=== PATIENT | female | born 1950 | race Caucasian/White ===

== ENCOUNTER 2021-01-18 19:16 | Emergency (ER) | payer MEDICARE, OTHER, SELFPAY ==
--- NOTE | 2021-01-18 19:17 | ED.FEMALEGU ---
HPI - Female Genitourinary General Chief complaint: Urogenital-Female Stated complaint: uti symptoms Time Seen by Provider: 01/18/21 19:38 Source: patient and RN notes reviewed Mode of arrival: ambulatory Limitations: no limitations History of Present Illness HPI Narrative: 70-year-old female presents concern for 2-week history of dysuria frequency, urgency, pressure when urinating. She reports she made an appointment with her doctor's office a week and a symptoms, however was unable to be seen because she had upper respiratory symptoms and they would not see her without being tested for Covid. Reports she tested negative for Covid. She reports symptoms are worsening, today she had nausea and vomiting, body aches and chills. MD elicited complaint: UTI Related Data Home Medications Medication Instructions Recorded Confirmed amlodipine 01/18/21 glimepiride mg 01/18/21 levothyroxine 01/18/21 lorazepam 01/18/21 metoprolol succinate PO 01/18/21 sitagliptin [Januvia] mg 01/18/21 Allergies Allergy/AdvReac Type Severity Reaction Status Date / Time ciprofloxacin Allergy Unknown Unknown Verified 01/18/21 19:26 codeine Allergy Unknown Unknown Verified 01/18/21 19:26 heparin Allergy Unknown Rash Verified 04/02/18 12:32 lansoprazole Allergy Unknown Unknown Verified 01/18/21 19:26 metformin Allergy Unknown Unknown Verified 01/18/21 19:26 neomycin Allergy Unknown Unknown Verified 01/18/21 19:26 Penicillins Allergy Unknown rash Verified 11/09/15 08:17 Sulfa (Sulfonamide Allergy Unknown Unknown Verified 01/18/21 19:26 Antibiotics) enoxaparin Allergy Flushing Verified 01/18/21 19:26 metronidazole Allergy Unknown Verified 01/18/21 19:26 shellfish derived Allergy Unknown Verified 01/18/21 19:26 ANTIDEPRESSANTS Allergy Unknown Unknown Uncoded 01/18/21 19:26 Contrast Media Allergy Unknown Unknown Uncoded 01/18/21 19:26 ESOMEPRAZOLE MAG Allergy Unknown Unknown Uncoded 01/18/21 19:26 Review of Systems Review of Systems: CONSTITUTIONAL: Reports malaise, chills. Denies sweats, or fever. CARDIOVASCULAR: Denies chest pain, palpitations, or edema. RESPIRATORY: Denies cough or dyspnea. GASTROINTESTINAL: Denies abdominal pain,diarrhea, bloody, or mucous stools. Reports nausea, vomiting, GENITOURINARY: Reports dysuria, frequency, urgency, bladder pressure. Denies abnormal vaginal discharge or bleeding, hematuria. SKIN: Denies rash or itching. MUSCULOSKELETAL: Denies new back pain. Reports myalgia. All systems reviewed & are unremarkable except as noted in HPI and below PMFSH Family History Family History (Updated 11/09/15 @ 08:24 by DOCTOR UNKNOWN) Other Diabetes mellitus Family history of cardiovascular disease Social History Social History Smoking status: Former smoker Smoking end date: 05/05/14 Alcohol intake: never Comments At time of signature, agree with nursing past medical, surgical, social and family history. There is no relevant family history pertinent to the presenting complaint Exam Narrative: GENERAL: Well-appearing, well-nourished, and in no acute distress. HEAD: Normocephalic. EYES: PERRLA, conjunctivae clear. NECK: Supple. No lymphadenopathy CHEST: Clear to auscultation. No respiratory distress. HEART: Regular rate and rhythm. ABDOMEN: Soft, nontender upon palpation, nondistended, normal active bowel sounds, no palpable or pulsatile masses, no guarding. No CVA tenderness SKIN: Warm, dry, no rash. NEURO: Alert and oriented x3. PSYCH: Normal mood and affect Course Course Emergency Course: Antibiotic options are limited due to patient's allergies. Patient reports having taken Macrobid several times in the past without any interaction or allergic reaction. Macrobid at this time is the best choice weighing benefits against risks. Patient is aware of diagnosis, understands and agrees to treatment plan. Anticipatory guidance given. Patient agrees to follow-up as directed and is aware
[2021-01-18 19:22] VITALS: BP 136/67; PULSE 80; RESP 20; TEMP 37.4; O2SAT 98
== END 2021-01-18 19:55 | disposition home or self-care (01) ==
PROVIDERS: Emergency Provider Nurse Practitioner; PCP Internal Medicine
DX: N39.0 Urinary tract infection, site not specified (principal); Z87.891 Personal history of nicotine dependence
CPT/HCPCS: 81003; 87077; 87086; 87186; 99213; G0463

== ENCOUNTER 2021-01-19 09:21 | Emergency (ER) | payer MEDICARE, OTHER, SELFPAY ==
[2021-01-19 09:27] VITALS: BP 154/61; PULSE 93; RESP 18; TEMP 37.4; O2SAT 98
[2021-01-19 10:11] LABS: Basophils Absolute Auto 0.1 K/mm3 (0.0-0.1); Basophils Percent Auto 0.4 % (0.2-1.2); Hematocrit 40.2 % (37.0-47.0); Immature Granulocyte Absolute 0.06 K/mm3 (0.00-0.031); Immature Granulocyte Percent A 0.5 % (0-0.5); Lymphocytes Absolute Auto 0.92 K/mm3 (0.9-3.2); Mean Corpuscular HGB Conc 32.3 g/dl (32-36); Mean Corpuscular Hemoglobin 26.7 pg (26-34); Mean Corpuscular Volume 82.5 fl (80-100); Mean Platelet Volume 9.9 fl (7.4-10.4); Monocytes Absolute Auto 0.6 K/mm3 (0.1-0.6); Monocytes Percent Auto 4.7 % (2.6-8.5); Neutrophils Absolute Auto 11.5 K/mm3 (1.3-6.7); Neutrophils Percent Auto 87.4 % (45.5-73.1); Platelet Count Result 235 k/mm3 (150-375); Red Blood Count 4.87 M/mm3 (4.2-5.4); Red Cell Distribution Width 14.6 % (11.5-14.5); White Blood Count 13.1 K/mm3 (4.5-10.0)
[2021-01-19 10:15] LABS: Anion Gap 9 mmol/L (8-16); Blood Urea Nitrogen 14 mg/dL (7-17); Calcium 9.2 mg/dL (8.4-10.2); Carbon Dioxide 27 mmol/L (22-30); Chloride 97 mmol/L (98-107); Estimated CRCL calculation 84 ml/min; Estimated Glomerular Filt Rate > 60; Glucose 199 mg/dL (65-110); Potassium 4.1 mmol/L (3.4-5.0); Sodium 133 mmol/L (137-145)
--- NOTE | 2021-01-19 10:40 | ED.FEMALEGU ---
HPI - Female Genitourinary General Chief complaint: Urogenital-Female Stated complaint: fever Time Seen by Provider: 01/19/21 10:16 Source: patient Mode of arrival: ambulatory Limitations: no limitations History of Present Illness HPI Narrative: This is a 70 year old female that presents to the ER for urinary symptoms ongoing over the last couple of weeks. Reports frequency, dysuria and foul smelling urine. Reports she was seen at the urgent care for this yesterday and started on Macrobid. She took two doses of this. Had a fever and continues to feel unwell which prompted her to be seen. Denies flank pain or hematuria. Related Data Home Medications Medication Instructions Recorded Confirmed amlodipine 5 mg PO DAILY 01/18/21 01/18/21 glimepiride 2 mg PO DAILY 01/18/21 01/18/21 levothyroxine 175 mcg PO DAILY 01/18/21 01/18/21 lorazepam 1 mg PO QID 01/18/21 01/18/21 metoprolol succinate 25 mg PO DAILY 01/18/21 01/18/21 sitagliptin [Januvia] 100 mg PO DAILY 01/18/21 01/18/21 Allergies Allergy/AdvReac Type Severity Reaction Status Date / Time ciprofloxacin Allergy Unknown Unknown Verified 01/18/21 19:26 codeine Allergy Unknown Unknown Verified 01/18/21 19:26 heparin Allergy Unknown Rash Verified 04/02/18 12:32 lansoprazole Allergy Unknown Unknown Verified 01/18/21 19:26 metformin Allergy Unknown Unknown Verified 01/18/21 19:26 neomycin Allergy Unknown Unknown Verified 01/18/21 19:26 Penicillins Allergy Unknown rash Verified 11/09/15 08:17 Sulfa (Sulfonamide Allergy Unknown Unknown Verified 01/18/21 19:26 Antibiotics) enoxaparin Allergy Flushing Verified 01/18/21 19:26 metronidazole Allergy Unknown Verified 01/18/21 19:26 shellfish derived Allergy Unknown Verified 01/18/21 19:26 ANTIDEPRESSANTS Allergy Unknown Unknown Uncoded 01/18/21 19:26 Contrast Media Allergy Unknown Unknown Uncoded 01/18/21 19:26 ESOMEPRAZOLE MAG Allergy Unknown Unknown Uncoded 01/18/21 19:26 Review of Systems Review of Systems: CONSTITUTIONAL: Reports fever GASTROINTESTINAL: Denies abdominal pain, nausea, vomiting GENITOURINARY: Reports dysuria. Denies hematuria. All systems reviewed & are unremarkable except as noted in HPI and below PMFSH Past Medical History Medical History (Updated 01/19/21 @ 12:06 by Eulalia Major PA-C) History of diabetes mellitus History of hypertension History of hypothyroidism Family History Family History (Updated 11/09/15 @ 08:24 by DOCTOR UNKNOWN) Other Diabetes mellitus Family history of cardiovascular disease Social History Social History (Updated 01/19/21 @ 10:44 by Eulalia Major PA-C) Smoking status: Current every day smoker Alcohol intake: never Exam Narrative: GENERAL: Well-appearing, well-nourished, and in no acute distress. HEAD: Normocephalic, atraumatic. EYES: EOMI. CHEST: Clear to auscultation. No respiratory distress. No wheezes rales or rhonchi HEART: Regular rate and rhythm. No murmur heard. Normal peripheral pulses. ABDOMEN: Soft, nontender, nondistended, normal active bowel sounds. No CVA tenderness EXTREMITIES: Normal range of motion. No edema. SKIN: Warm, dry, no rash. NEURO: No focal deficits. Alert and oriented x3. PSYCH: Normal mood and affect Course Consultations Consultation #1: I spoke with her primary, Dr. Cleaning, about work-up who agrees with plan and will follow up in clinic. Date: 01/19/21 Time: 12:00 Vital Signs Vital signs: Vital Signs Temperature 99.4 F 01/19/21 09:27 Pulse Rate 93 01/19/21 09:27 Respiratory Rate 18 01/19/21 09:27 Blood Pressure 154/61 H 01/19/21 09:27 Pulse Oximetry 98 01/19/21 09:27 Temperature 99.4 F 01/19/21 09:27 Pulse Rate 93 01/19/21 09:27 Respiratory Rate 18 01/19/21 09:27 Blood Pressure 154/61 H 01/19/21 09:27 Pulse Oximetry 98 01/19/21 09:27 MDM - Female Genitourinary MDM Narrative Medical decision making narrative: Patient presents the emergency department for dysuria
[2021-01-19 10:47] LABS: Add Urine Microscopic? YES; Appearance Urine Cloudy (Clear); Bacteria Urine Trace /hpf; Bilirubin Urine Negative (Negative); Blood Urine Negative (Negative); Color Urine Amber (Yellow); Glucose Urine UA Negative (Negative); Ketones Urine Negative (Negative); Leukocyte Esterase Ur 1+ LEU/UL (Negative); Mucus Urine Rare /lpf; Nitrate Urine Negative (Negative); Protein Urine 1+ mg/dL (Negative); Specific Grav Ur 1.025 (1.001-1.035); Squamous Epithelial Cell Urine Moderate /hpf (Few); Urobilinogen Urine Negative mg/dL (<2.0); WBC Urine 31-50 /hpf
== END 2021-01-19 12:26 | disposition home or self-care (01) ==
PROVIDERS: Emergency Provider Emergency Medicine; PCP Internal Medicine
DX: N39.0 Urinary tract infection, site not specified (principal); E11.9 Type 2 diabetes mellitus without complications; I10 Essential (primary) hypertension; E03.9 Hypothyroidism, unspecified; F17.210 Nicotine dependence, cigarettes, uncomplicated
CPT/HCPCS: 36415; 80048; 81001; 85025; 99283

== ENCOUNTER 2023-07-07 09:19 | Emergency (ER) | payer MEDICARE, OTHER, SELFPAY ==
[2023-07-07 09:39] VITALS: BP 126/73; PULSE 65; RESP 20; TEMP 36.6; O2SAT 97
--- NOTE | 2023-07-07 10:20 | ED.GENADULT ---
HPI - General Adult General Chief complaint: Extremity Problem,Nontraumatic Stated complaint: rash Time Seen by Provider: 07/07/23 10:00 History of Present Illness HPI narrative: Beatriz Sim is a 72 y/o who presents with reports of noticing a red rash to her bilateral lower extremities / ankles today. She states that she started having her dog sleep at her feet and not sure if she is having an allergic reaction to her dog since he started a new medication that was put in his ears. She denies any pain/ itching to rash but states she does have neuropathy. She denies noticing the rash yesterday. Related Data Home Medications Medication Instructions Recorded Confirmed amlodipine 5 mg tablet 5 mg PO DAILY 01/18/21 01/18/21 glimepiride 2 mg tablet 2 mg PO DAILY 01/18/21 01/18/21 levothyroxine 150 mcg tablet 175 mcg PO DAILY 01/18/21 01/18/21 lorazepam 1 mg tablet 1 mg PO QID 01/18/21 01/18/21 metoprolol succinate 25 mg 25 mg PO DAILY 01/18/21 01/18/21 tablet,extended release 24 hr sitagliptin phosphate 100 mg 100 mg PO DAILY 01/18/21 01/18/21 tablet (Januvia) Allergies Allergy/AdvReac Type Severity Reaction Status Date / Time ciprofloxacin Allergy Unknown Unknown Verified 07/07/23 09:45 codeine Allergy Unknown Unknown Verified 07/07/23 09:45 heparin Allergy Unknown Rash Verified 07/07/23 09:45 lansoprazole Allergy Unknown Unknown Verified 07/07/23 09:45 metformin Allergy Unknown Unknown Verified 07/07/23 09:45 neomycin Allergy Unknown Unknown Verified 07/07/23 09:45 Penicillins Allergy Unknown rash Verified 07/07/23 09:45 Sulfa (Sulfonamide Allergy Unknown Unknown Verified 07/07/23 09:45 Antibiotics) enoxaparin Allergy Flushing Verified 07/07/23 09:45 metronidazole Allergy Unknown Verified 07/07/23 09:45 shellfish derived Allergy Unknown Verified 07/07/23 09:45 ANTIDEPRESSANTS Allergy Unknown Unknown Uncoded 07/07/23 09:45 Contrast Media Allergy Unknown Unknown Uncoded 07/07/23 09:45 ESOMEPRAZOLE MAG Allergy Unknown Unknown Uncoded 07/07/23 09:45 Review of Systems Review of Systems: CONSTITUTIONAL: Denies fever, chills, or sweats. EYES: Denies visual changes, redness, or discharge. ENT: Denies rhinorrhea, congestion, sore throat, or otalgia. CARDIOVASCULAR: Denies chest pain, palpitations, or edema. RESPIRATORY: Denies cough or dyspnea. GASTROINTESTINAL: Denies abdominal pain, nausea, vomiting, or diarrhea. GENITOURINARY: Denies dysuria or hematuria. SKIN: Reports rash to bilateral ankles where her dog was resting last night at her feet MUSCULOSKELETAL: Denies back pain, joint pain, or myalgia. NEUROLOGIC: Denies headache, numbness, dizziness, or weakness. PSYCHIATRIC: Denies anxiety or depression. [facility] Past Medical History Medical History History of diabetes mellitus History of hypertension History of hypothyroidism Family History Family History Other Diabetes mellitus Family history of cardiovascular disease Social History Social History Smoking status: Current every day smoker Alcohol intake: never Exam Narrative: GENERAL: Well-appearing, well-nourished, and in no acute distress. HEAD: Normocephalic, atraumatic. EYES: PERRLA and EOMI. ENT: Nares clear, no rhinorrhea or epistaxis. Mucous membranes moist. Oropharynx without tonsillar hypertrophy exudate or other lesions. NECK: Supple. No adenopathy or masses. No carotid bruits or JVD CHEST: Clear to auscultation. No respiratory distress. No wheezes rales or rhonchi HEART: Regular rate and rhythm. No murmur heard. Normal peripheral pulses. ABDOMEN: Soft, nontender, nondistended, normal active bowel sounds. EXTREMITIES: Normal range of motion. No edema. SKIN: Warm, dry, multiple raised/ blanchable / papules to the bilateral lower ankles NEURO: No focal deficits. Alert and khang
[2023-07-07] MEDS: AZITHROMYCIN 250 MG TABLET 500 MG PO (10:24)
[2023-07-07] MEDS: LORATADINE 10 MG TABLET PO (10:24)
[2023-07-07 10:25] VITALS: BP 150/73; PULSE 76; RESP 20; O2SAT 97
[2023-07-07 10:53] VITALS: BP 153/90; PULSE 66; RESP 18; TEMP 36.7; O2SAT 96
== END 2023-07-07 10:55 | disposition home or self-care (01) ==
LOC: ANHED 10:41
PROVIDERS: Emergency Provider Nurse Practitioner Family; PCP Internal Medicine
DX: L24.9 Irritant contact dermatitis, unspecified cause (principal); E11.9 Type 2 diabetes mellitus without complications; I10 Essential (primary) hypertension; E03.9 Hypothyroidism, unspecified; Z79.84 Long term (current) use of oral hypoglycemic drugs; F17.200 Nicotine dependence, unspecified, uncomplicated
CPT/HCPCS: 99283; A9270

== ENCOUNTER 2024-06-21 10:47 | Emergency (ER) | payer MEDICARE, OTHER, SELFPAY ==
--- NOTE | ~2024-06-21 | XR_ITS ---
EXAMINATION: XR chest 2V DATE: 06/21/2024 11:41 INDICATION: Cough. Upper respiratory infection. TECHNIQUE: Frontal and lateral views of the chest were obtained. COMPARISON: Chest 2 views 12/31/2016, CT abdomen and pelvis 09/12/2016 FINDINGS: Calcified left lung nodules are consistent with old granulomatous disease. No pleural effus ion or pneumothorax. The heart size is normal. There are surgical clips in the right abdomen. IMPRESSION: 1. No acute cardiopulmonary disease. Reviewed, dictated and finalized at location A. RING HOUSE CLERK
[2024-06-21 10:49] VITALS: BP 173/68; PULSE 80; RESP 15; TEMP 36.6; O2SAT 100
--- NOTE | 2024-06-21 11:36 | ECG_ITS ---
Test Date: 2024-06-21 12:20:30 Measurements Intervals [place] Rate: 72 P: 23 [place]: 157 QRS: -7 QRSD: 110 T: -6 QT: 413 QTc: 454 Interpretive Statements SINUS RHYTHM WITH OCCASIONAL WITH OCCASIONAL ATRIAL AND VENTRICULAR PREMATURE COMPLEXES CANNOT R/O SEPTAL INFARCT, AGE INDETERMINATE BORDERLINE T WAVE ABNORMALITY- INF/HIGH LAT LEADS ABNORMAL ECG No previous ECG available for comparison Electronically Signed On 06-21-2024 12:43:10 HIGH RE[employer] OPERATOR by Darian Jones D.O.
[2024-06-21 11:45] VITALS: O2SAT 98
[2024-06-21 12:07] LABS: Influenza A QL RT-PCR Positive (Negative); Influenza B QL RT-PCR Negative (Negative); RSV RNA, RT-PCR Negative (Negative); SARS-CoV-2 RNA PCR Negative (Negative)
--- NOTE | 2024-06-21 12:26 | ED.GENADULT ---
HPI - General Adult General Chief complaint: Upper Respiratory Infection Stated complaint: cough Time Seen by Provider: 06/21/24 11:23 History of Present Illness HPI narrative: Patient is a 73-year-old female who presents ER with a cough. Associated with runny nose and sore throat. Ongoing for 7 days. No alleviating factors. Cough is productive. No chest pain. Related Data Home Medications ?Medication ?Instructions ?Recorded ?Confirmed ?Last Taken ?Type amlodipine 5 mg tablet 5 mg PO DAILY 01/18/21 01/18/21 Unknown History glimepiride 2 mg tablet 2 mg PO DAILY 01/18/21 01/18/21 Unknown History levothyroxine 150 mcg tablet 175 mcg PO DAILY 01/18/21 01/18/21 Unknown History lorazepam 1 mg tablet 1 mg PO QID 01/18/21 01/18/21 Unknown History metoprolol succinate 25 mg 25 mg PO DAILY 01/18/21 01/18/21 Unknown History tablet,extended release 24 hr sitagliptin phosphate 100 mg 100 mg PO DAILY 01/18/21 01/18/21 Unknown History tablet (Januvia) Allergies Allergy/AdvReac Type Severity Reaction Status Date / Time ciprofloxacin Allergy Unknown Unknown Verified 07/07/23 09:45 codeine Allergy Unknown Unknown Verified 07/07/23 09:45 heparin Allergy Unknown Rash Verified 07/07/23 09:45 lansoprazole Allergy Unknown Unknown Verified 07/07/23 09:45 metformin Allergy Unknown Unknown Verified 07/07/23 09:45 neomycin Allergy Unknown Unknown Verified 07/07/23 09:45 Penicillins Allergy Unknown rash Verified 07/07/23 09:45 Sulfa (Sulfonamide Allergy Unknown Unknown Verified 07/07/23 09:45 Antibiotics) enoxaparin Allergy Flushing Verified 07/07/23 09:45 metronidazole Allergy Unknown Verified 07/07/23 09:45 shellfish derived Allergy Unknown Verified 07/07/23 09:45 ANTIDEPRESSANTS Allergy Unknown Unknown Uncoded 07/07/23 09:45 Contrast Media Allergy Unknown Unknown Uncoded 07/07/23 09:45 ESOMEPRAZOLE MAG Allergy Unknown Unknown Uncoded 07/07/23 09:45 Review of Systems Review of Systems: All systems reviewed & are unremarkable except as noted in HPI and below Constitutional: Constitutional: Reports no additional constitutional complaints Cardiovascular: Cardiovascular: Reports no additional cardiovascular complaints Respiratory: Respiratory: Reports no additional respiratory complaints Musculoskeletal: Musculoskeletal: Reports no additional musculoskeletal complaints PMFSH Past Medical History Medical History History of diabetes mellitus History of hypertension History of hypothyroidism Family History Family History Other Diabetes mellitus Family history of cardiovascular disease Social History Social History Smoking status: Current every day smoker Alcohol intake: never Exam Narrative: GENERAL: Well-appearing, well-nourished, and in no acute distress. HEAD: Normocephalic, atraumatic. ENT: Mucous membranes moist. CHEST: Clear to auscultation. No respiratory distress. HEART: Regular rate and rhythm. Normal peripheral pulses. EXTREMITIES: Normal range of motion. No edema. SKIN: Warm, dry, no rash. NEURO: Alert and oriented x3. PSYCH: Normal mood and affect. Course Vital Signs Vital signs: Vital Signs Temperature 97.8 F 06/21/24 10:49 Pulse Rate 80 06/21/24 10:49 Respiratory Rate 06/21/24 10:49 Blood Pressure 173/68 H 06/21/24 10:49 Pulse Oximetry 100 06/21/24 10:49 Oxygen Delivery Room Air 06/21/24 10:49 Temperature 97.8 F 06/21/24 10:49 Pulse Rate 80 06/21/24 10:49 Respiratory Rate 15 06/21/24 10:49 Blood Pressure 173/68 H 06/21/24 10:49 Pulse Oximetry 100 06/21/24 10:49 Oxygen Delivery Room Air 06/21/24 10:49 Medical Decision Making Vital Signs Vital Signs: Vital Signs Temperature 97.8 F 06/21/24 10:49 Pulse Rate 80 06/21/24 10:49 Respiratory Rate 15 06/21/24 10:49 Blood Pressure 173/68 H 06/21/24 10:49 Pulse Oximetry 100 06/21/24 10:49 Oxygen Delivery Room Air 06/21/24 10:49 Temperature 97.8 F 06/21/24 10:49 Pulse Rate 80 06/21/24 10:49 Respiratory Rate 15 06/21/24 10:49 Blood Pressure 173/68 H 06/21/24 10:49 Pulse Oximetry 100 06/21/24 10:49 Oxygen Delivery Room Air 06/21/24 10:49 Lab Data Labs: Lab Results 06/21/24 Range/Units 11:23 Influenza A (RT-PCR) Positive A (Negative) Influenza B (RT-PCR) Negative (Negative) RSV (RT-PCR) Negative (Negative) SARS-CoV-2 RNA (RT-PCR) Negative (Negative) Imaging Data Radiologist's impression: ITS Impressions Chest X-Ray 06/21/24 11:42 IMPRESSION: 1. No acute cardiopulmonary disease. Discharge Plan Discharge Clinical Impression: Influenza A Patient Disposition: Home, Self-Care Condition: Stable Instructions: Influenza (ED) Additional Instructions: You have the flu, take Tylenol and ibuprofen as needed for body aches and fever. Return ER if you cannot breathe, have chest pain, have additional concerns. Patient Language: Swedish Prescriptions: No Action amlodipine 5 mg tablet 5 mg PO DAILY glimepiride 2 mg tablet 2 mg PO DAILY levothyroxine 150 mcg tablet 175 mcg PO DAILY metoprolol succinate 25 mg tablet extended release 24 hr 25 mg PO DAILY lorazepam 1 mg tablet 1 mg PO QID Januvia 100 mg tablet 100 mg PO DAILY phenazopyridine [Pyridium] 200 mg tablet 200 mg PO TID PRN (Reason: pain) Qty: 6 0RF nitrofurantoin monohyd/m-cryst [Macrobid] 100 mg capsule 100 mg PO Q12H 5 Days Qty: 10 0RF Rx Instructions: must administer with a meal/food cetirizine [Zyrtec] 10 mg tablet 10 mg PO DAILY Qty: 30 0RF azithromycin 250 mg tablet 250 mg PO DAILY 4 Days Qty: 4 0RF Rx Instructions: start on day 2 of therapy triamcinolone acetonide 0.1 % ointment 1 applic topical BID Qty: 30 0RF Follow-up/Referrals: Hermila,Lobito Banegas MD [Primary Care Provider] - 1 Week
[2024-06-21 12:37] VITALS: BP 126/65; PULSE 85; RESP 20; TEMP 36.5; O2SAT 99
[2024-06-21 12:42] VITALS: BP 126/65; PULSE 85; RESP 20; TEMP 36.5; O2SAT 99
--- OUTSIDE RECORDS SUMMARY | 2024-06-21 13:51 | XMS_ITS | Clinical Summary ---
Author Organization [facility] Address [address] [place] [id number] Care Team Providers Care [employer] Weapons Officer Name Role Phone Unavailable Primary Care Provider Unavailabl e Social History Tobacco Use Types Packs/Day Years Used Date Smoking Tobacco: Never Assessed Comments Unknown Sex and Gender Information Value Date Recorded Sex Assigned at Not on file Legal Sex Female 4:40 PM CDT Gender Identity Not on file Sexual Orientation Not on file Plan of Treatment Health Maintenance Due Date Last Done Comments Colorectal Cancer Screening Colonoscopy (10 Years) 1950 Hepatitis C 1968 DTaP, Tdap and Td Vaccines ( 1 - Tdap) 1969 Mammogram Screening 1990 Zoster Vaccines (1 of 2) 2000 Dexa Scan (General) 08/15/2015 Pneumococcal Vaccine: 65+ Ye ars (1 of 1 - PCV) 08/15/2015 COVID-19 Vaccine (2023-2 5 season) 2024 Influenza Adult (#1) 2024 RSV Immunization or 60+ Years (1 - 1-dose 75+ series) 2025 Meningococcal B Vaccine Aged Out No l onger eligible based on patient's age to complete this topic Meningococcal Vaccine Aged Out No kaylee iman eligible based on patient's age to complete this topic RSV Immunizations Under 20 Months Aged Out No longer eligible based on patient's age to complete this topic
--- OUTSIDE RECORDS SUMMARY | 2024-06-21 13:51 | XMS_ITS | Referral Summary ---
Author Organization [facility] Address [address] [place] [address] Care Team Providers Care Hat Measurer Name Role Phone Lobito Cleaning MD Primary Care Provider [phone] Encounters Date Type Department Care Team Description 06/21/2024 Telephone [facility] [address] [facility] [address] [place] [phone] Lobito Cleaning MD Medication Request 05/21/2024 10:00 AM DIETICIAN Office Visit [facility] [address] [facility] [address] [place] [phone] Lobito Cleaning MD Primary hypertension (Primary Dx); Hypothyroidism, unspecified type; Hyperlipidemia associated with type 2 diabetes mellitus (HCC); Palpitations from Last 3 Months Allergies Active Allergy Reactions Criticality Noted Date Comments Ciprofloxacin Codeine Other (See comments),Unknown Medium 09/04/2023 Reaction: Unknown, , Reaction: PALPIT, RAPID HRTRT, , per pt [id number] Enoxaparin Other (See comments) Medium Reaction: FLUSHING, Esomeprazole Unknown 09/04/2023 Iodinated Contrast Media Rash Medium Iodine Unknown 09/04/2023 Neomycin Blisters High 03/06/2018 Oyster Extract Flatulence Low Penicillins Other (See comments),Unknown 02/06/2005 Reaction: Unknown, , , RASH Poison Vanessa Extract Swelling,Rash Medium 07/15/2017 Shellfish Derived Unknown 09/04/2023 Sulfa (Sulfonamide Antibiotics) Unknown 02/06/2005 NOT SURE Sulfanilamide Other (See comments) Reaction: Unknown, Sulfite Hives Medium Tetracyclic Antidepressants Mental status changes Medium Reaction: CONFUSION, Medications rosuvastatin (CRESTOR) 10 mg tablet Take 1 tablet (10 mg total) by mouth daily 30 tablet 3 Active Additional Information Patient not taking.Reported on 09/04/2023 albuterol HFA (PROVENTIL HFA,VENTOLIN HFA,PROAIR HFA) 90 mcg/actuation inhaler Inhale 2 puffs every 4 (four) hours as needed for wheezing 1 each 3 Active alcohol swabs (Alcohol Pads) pads, medicatedIndica tions:Diabetes mellitus due to underlying condition with hyperglycemia, without long-term current use of insulin ([facility]) 100 each by other route once a week Use for Trulicity injection weekly. 100 each 4 Active blood-glucose meter kitIndications: Diabetes mellitus due to underlying condition with hyperglycemia, without long-term current use of insulin ([facility]) Use daily or as directed for monitoring of diabetes 1 kit 4 Active blood glucose diagnostic stripIndication s:Diabetes mellitus due to underlying condition with hyperglycemia, without long-term current use of insulin ([facility]) 1 each by other route 2 (two) times a day before lunch and dinner 180 each 4 09/05/19 25 Active lancets 31 gauge miscIndications :Diabetes mellitus due to underlying condition with hyperglycemia, without long-term current use of insulin ([facility]) 1 strip 2 (two) times a day before lunch and dinner 100 each 4 09/05/19 25 Active levothyroxine (SYNTHROID) 175 mcg tablet Take 1 tablet (175 mcg total) by mouth daily 90 tablet 4 Active metoprolol XL (TOPROL-XL) 25 mg extended release tablet Take 1 tablet (25 mg total) by mouth daily 90 tablet 4 11/13/19 25 Active amLODIPine (NORVASC) 5 mg tablet Take 1 tablet (5 mg total) by mouth daily 90 tablet 4 Active famotidine (PEPCID) 40 mg tablet Take 1 tablet (40 mg total) by mouth daily 90 tablet 4 11/13/19 25 Active dulaglutide (TRULICITY) 1.5 mg/0.5 mL pen injector Inject 0.5 mL (1.5 mg total) under the skin once a week 2 mL 11 4 Active LORazepam (ATIVAN) 1 mg tabletIndicatio ns:Anxiety TAKE 1 TABLET(1 MG) BY MOUTH EVERY 8 HOURS NEEDED FOR ANXIETY 90 tablet 3 4 Active Active Problems Problem Noted Date Diagnosed Date Fatigue 11/13/2023 Assessment & Plan (11/13/2023 6:15 AM CDT): Likely from uncontrolled diabetes. Repeat TSH. Order B12, CK. Chronic bilateral low back pain without sciatica 11/13/2023 Assessment & Plan (11/13/2023 3:56 PM CDT): Refer for PT. Dysphagia 11/13/2023 Cellulitis of right anterior lower leg Assessment & Plan (07/09/2023 8:54 AM DIETICIAN): Symptoms are improved. Complete antibiotics and continue steroid cream. Palpitations 07/09/2023 Assessment & Plan (05/21/2024 9:21 AM DIETICIAN): Reorder holter monitor. Reviewed normal TSH. Assessment & Plan (07/09/2023 8:58 AM DIETICIAN): Order monitor. Await TSH. She is intolerant of CPAP. Essential hypertension 01/01/2023 Assessment & Plan (03/02/2024 6:36 AM CDT): Hypertension is controlled. Continue current regimen. Assessment & Plan (01/02/2023 3:40 PM CDT): Hypertension is controlled. Continue current regimen. Morbid (severe) obesity due to excess calories 0 01/28/2022 Body mass index 40.0-44.9, adult (CMS/HCC) 01/28 Chest pain 01/28/2022 Assessment & Plan (01/28/2022 12:09 PM CDT): Recent ED visit. Risk factors are diabetes and hypertension. Order chemical stress echo. Feeling of incomplete bladder emptying Assessment & Plan (11/29/2021 2:46 PM CDT): -Patient has been taking more time to urinate and rocking back and forth during urination. This has helped with feelings of incomplete emptying. -She is doing well with her voiding overall. PLAN: -F/U prn. Assessment & Plan (05/31/2021 2:39 PM DIETICIAN): -PVR was low today at 15mL. -Reports only feeling this when she believes she has UTI. -No current symptoms. Acute cystitis without hematuria 05/31/2021 Assessment & Plan (05/31/2021 2:40 PM DIETICIAN): -Most recent UA done by PCP showing blood and pyuria; however, urine culture showed clinically insignificant growth. Possible needed to obtain a better sample. She was having symptoms of urgency/feeling of incomplete emptying and took macrobid. This resolved her symptoms. -No other culture showing infection on file. She has had UA micro in the past that were negative for blood. POCT UA today negative for blood. Will monitor. PLAN: -Reduce soda intake and drink adequate amounts of water. -Work to control diabetes as this will decrease chance of infection. -Will f/u in about 6 months to follow progress. Hemoptysis 04/26/2021 Assessment & Plan (04/26/2021 10:11 AM DIETICIAN): Reviewed CXR. Order Chest CT. Dysuria 04/25/2021 Assessment & Plan (11/29/2021 2:44 PM CDT): -Has increased water intake. -No issues with dysuria or UTI-like symptoms since initial office visit. PLAN: -Continue with adequate water intake. -Reduce soda intake. Assessment & Plan (04/26/2021 10:07 AM DIETICIAN): Order UA. reviewed urinary hygiene. Treat with macrobid and await culture. Diarrhea of infectious origin 01/29/2021 Assessment & Plan (01/29/2021 9:48 AM CDT): Likely C.dif and antibiotic related. Start metronidazole. Cellulitis of buttock 01/29/2021 Assessment & Plan (01/29/2021 9:51 AM CDT): Cellulitis improved with antibiotics. Rash 01/28/2021 Screen for colon cancer 01/02/2021 Overview (01/02/2021): Added automatically from request for surgery [id number] Chronic right shoulder pain 10/05/2018 Assessment & Plan (10/05/2018 10:41 AM CDT): Reviewed ROM exercises for scapular pain. Class 3 severe obesity due t o excess calories with serious comorbidity and body mass index (BMI) of 40.0 to 44.9 in adult 04/21/2018 Assessment & Plan (04/26/2021 10:18 AM DIETICIAN): BMI is more than 40, reviewed calorie restrictions. Assessment & Plan (04/21/2018 8:56 AM DIETICIAN): BMI is more than 40, reviewed calorie restrictions. Diastolic heart failure secondary to hypertensio n ([facility]) 10/03/2017 Assessment & Plan (04/21/2018 6:47 AM DIETICIAN): Hypertension is controlled. Continue current regimen.CHF compensated. Continue current regimen. Reviewed low sodium diet. Assessment & Plan (10/03/2017 6:32 AM CDT): Hypertension is controlled. Continue current regimen. CHF compensated. Continue current regimen. Reviewed low sodium diet. H/O adenomatous polyp of colon 10/03/2017 Assessment & Plan (10/03/2017 6:38 AM CDT): Advised colonoscopy. Hyperlipidemia associated with type 2 diabetes larry mahmood 04/04/2017 Assessment & Plan (05/21/2024 9:13 AM DIETICIAN): Reviewed recent HgbA1C was improved to 6.2. Continue Trulicity. Stop glimepiride.. Advised rosuvastatin for hyperlipidemia. Assessment & Plan (03/02/2024 6:37 AM CDT): Reviewed recent HgbA1C is at goal. Continue the same regimen. Continue rosuvastatin for hyperlipidemia. Assessment & Plan (01/16/2024 8:38 AM CDT): Diabetes is controlled. Increase trulicity and decrease glimepiride to 2 mg . Diabetes is complicated by hyperlipidemia;continue rosuvastatin. Assessment & Plan (11/13/2023 3:50 PM CDT): Her diabetes is uncontrolled;I advised her to follow with Endocrinology. Resume Trulicity and glimepiride. Diabetes is complicated by hyperlipidemia;advised rosuvastatin. Assessment & Plan (07/09/2023 5:51 AM DIETICIAN): Her diabetes is uncontrolled;I advised her to follow with Endocrinology. Continue Januvia and glimepiride. Diabetes is complicated by hyperlipidemia;I advised a statin. Assessment & Plan (01/02/2023 3:37 PM CDT): Her diabetes is uncontrolled;I advised her to follow with Endocrinology. Continue Januvia and resume glimepiride. Diabetes is complicated by hyperlipidemia;I advised a statin. Assessment & Plan (05/31/2022 6:18 AM DIETICIAN): She does not have an appointment with Endocrinology scheduled;advised ehr to schedule an appointment..Continue Januvia andglimepiride. Diabetes is complicated by hyperlipidemia;I advised a statin. Assessment & Plan (01/28/2022 12:12 PM CDT): Reviewed HgbA1C was 8.4 on 11/15/21.Continue Januvia and resume glimepiride. Diabetes is complicated by hyperlipidemia;her LDL was 114 on 07/26/21. Advised a statin. Assessment & Plan (07/26/2021 9:40 AM CDT): Her last HgbA1C was elevated at 9. She has been referred to Endocrinology. Reviewed elevated triglycerides should improve with improved diabetic control. Assessment & Plan (04/25/2021 11:55 AM DIETICIAN): Reviewed HgbA1C was elevated at 7.5 on 11/02/20. Diabetes is not controlled. Continue current regimen and monitor diet. Reviewed dietary goals for elevated triglycerides,. Assessment & Plan (10/05/2018 6:41 AM CDT): Reviewed proper diet for elevated triglycerides. Assessment & Plan (04/21/2018 6:48 AM DIETICIAN): Reviewed proper diet. Continue diet for elevated triglycerides. Assessment & Plan (10/03/2017 6:33 AM CDT): Reviewed proper diet for hyperlipidemia. Continue Diabetic regimen. Advised annual eye exam. Assessment & Plan (04/04/2017 9:27 AM DIETICIAN): Reviewed proper diet. She will consider statin therapy. Morbid obesity 04/04/2017 Assessment & Plan (04/04/2017 9:20 AM DIETICIAN): BMI is more than 40. Encouraged weight loss. Hypertension 10/07/2013 Assessment & Plan (05/21/2024 5:41 AM DIETICIAN): Hypertension is controlled. Continue current regimen. Assessment & Plan (01/16/2024 5:35 AM CDT): Hypertension is controlled. Continue current regimen. Assessment & Plan (11/13/2023 6:15 AM CDT): Hypertension is controlled. Continue current regimen. Assessment & Plan (07/09/2023 5:51 AM DIETICIAN): Hypertension is controlled. Continue current regimen. Assessment & Plan (05/31/2022 6:17 AM DIETICIAN): Hypertension is controlled. Continue current regimen. Assessment & Plan (01/28/2022 7:05 AM CDT): Hypertension is controlled. Continue current regimen. Reviewed her creatinine was 0.6 on 07/26/21. Assessment & Plan (09/13/2021 9:06 AM CDT): Hypertension is controlled. Continue current regimen. Reviewed creatinine was 0.6 on 07/26/21. Assessment & Plan (07/26/2021 9:41 AM CDT): Hypertension is controlled. Continue current regimen. Reviewed creatinine was 0.62 on 04/06/21. Assessment & Plan (04/25/2021 11:54 AM DIETICIAN): Hypertension is controlled. Continue current regimen. Assessment & Plan (10/05/2018 6:41 AM CDT): Hypertension is controlled. Continue current regimen. Assessment & Plan (04/04/2017 6:58 AM DIETICIAN): Hypertension is controlled. Continue current regimen. Type 2 diabetes mellitus wit h hyperglycemia, without long-term current use of insulin ([facility]) 10/07/2013 Assessment & Plan (01/28/2021 9:10 AM CDT): Reviewed HgbA1C was elevated at 7.5 on 11/02/20. Diabetes is not controlled. Continue current regimen and monitor diet. Assessment & Plan (10/05/2018 6:42 AM CDT): Continue glimepiride. Continue diet for elevated triglycerides. Assessment & Plan (04/21/2018 6:50 AM DIETICIAN): Last Hgba1C was elevated. Continue current regimen. Assessment & Plan (04/04/2017 6:59 AM DIETICIAN): Continue current regimen. Advised annual eye exam. Reviewed proper diet. Continue statin therapy. Generalized anxiety disorder 09/18/2013 Overview (08/07/2016): GENERALIZED ANXIETY DIS Assessment & Plan (01/01/2023 8:12 AM CDT): Continue lorazepam as needed. She declines a SSRI. Hypothyroidism 09/18/2013 Overview (08/09/2016): HYPOTHYROIDISM NOS Assessment & Plan (05/21/2024 5:41 AM DIETICIAN): Continue levothyroxine. Assessment & Plan (03/02/2024 6:36 AM CDT): Continue levothyroxine. Assessment & Plan (01/16/2024 5:35 AM CDT): Continue levothyroxine. Order labs. Assessment & Plan (11/13/2023 6:15 AM CDT): Continue levothyroxine. Assessment & Plan (07/09/2023 5:51 AM DIETICIAN): Continue levothyroxine and Endocrinology care. Assessment & Plan (01/01/2023 8:12 AM CDT): Continue levothyroxine and Endocrinology care. Assessment & Plan (05/31/2022 6:17 AM DIETICIAN): Continue levothyroxine and Endocrinology care. Assessment & Plan (01/28/2022 7:04 AM CDT): Continue levothyroxine and Endocrinology care. Assessment & Plan (09/13/2021 9:06 AM CDT): Continue levothyroxine. Assessment & Plan (07/26/2021 9:41 AM CDT): Continue levothyroxine. Order TSH. Assessment & Plan (04/25/2021 11:54 AM DIETICIAN): Reviewed normal TSH 11/02/20. Continue levothyroxine. Assessment & Plan (01/28/2021 9:09 AM CDT): Reviewed normal TSH 11/02/20. Continue levothyroxine. Assessment & Plan (10/05/2018 6:42 AM CDT): Continue levothyroxine. Assessment & Plan (04/21/2018 6:49 AM DIETICIAN): Continue levothyroxine. Recent TSH at goal. Assessment & Plan (10/03/2017 6:33 AM CDT): Problem controlled. Continue levothyroxine. Assessment & Plan (04/04/2017 6:59 AM DIETICIAN): Continue levothyroxine. Gastroesophageal reflux disease 09/18/2013 Overview (08/09/2016): ESOPHAGEAL REFLUX Prurigo nodularis 11/25/2012 Anxiety 06/21/2011 Assessment & Plan (11/13/2023 3:54 PM CDT): Continue lorazepam. Assessment & Plan (10/03/2017 6:37 AM CDT): She is intolerant of SSRIs. Continue lorazepam as needed. Sebaceous cyst 03/05/2011 Resolved Problems Problem Noted Date Diagnosed Date Resolved Date Thyroid activity decreased 10/07/2013 0 10/03/2017 Hyperlipidemia 10/07/2013 10/03/2017 Cataract 09/18/2013 10/03/2017 Overview (08/09/2016): CATARACT NOS Acne 11/25/2012 03/06/2018 Pain of foot 08/17/2012 10/03/2017 Feces contents abnormal 12/17/201105/2017 Diabetes mellitus 06/21/2011 10/03/2017 Immunizations Immunization Administration Dates Next Due Influenza, Quadrivalent, Hig h Dose, Preservative Free, Intrr 02/21/2021 Influenza, Quadrivalent, Spl it, Preservative Free, Intramuscular 03/15/2015 Influenza, Split 04/02/2011,02/05/2010 Influenza, Trivalent, High D ose, Split, Preservative Free, Intramuscular 03/02/2024,01/28/2019,01/30/2016 Influenza, Trivalent, IM (MDV) 02/26/2015,2011,01/20/2009 Influenza, Trivalent, Preser vative Free, Intramuscular 02/02/2014,02/16/2013 Influenza, Unspecified 02/12/2023(Deferr ed: Patient Refused),02/14/2022,02/10/2018, 017,02/04/2017 Pfizer SARS-CoV-2 Monovalent Vaccination (12+ Yrs) PURPLE 03/20/2021,07/26/2020,07/05/2020 Pfizer Sars-Cov-2 Bivalent V accination (12+ YRS) 02/25/2023 Tdap 07/06/2012,07/06/2012 Social History Tobacco Use Types Packs/Day Years Used Date Smoking Tobacco: Former Cigarettes 0.1 0.3 0 09/02/2020 - 12/29/2020 Smokeless Tobacco: Never Comments:Smoking History Pac ks/day: 1 Packs Alcohol Use Standard Drinks/Week Comments No 0 (1 standard drink = 0.6 oz pur e alcohol) AUDIT-C Answer Date Recorded Q1: How often do you have a drink containing alc ohol? Never 01/15/2021 Average Number of Drinks Not on file 021 Frequency of Binge Drinking Not on file 01/03 PHQ-2 Answer Date Recorded PHQ-2 Total Score (If total score is 3 or more points, staff should administer the PHQ-9) 0 05/21/2024 Personal Safety Answer Date Recorded Have you ever been in or are you currently in a harmful physical or emotional relationship or is someone making you feel afraid or unsafe? Denies 11/10/2023 Comments No Sex and Gender Information Value Date Recorded Sex Assigned at Not on file Legal Sex Female 2:19 PM DIETICIAN Gender Identity Not on file Sexual Orientation Not on file Last Filed Vital Signs Vital Sign Reading Time Taken Comments Blood Pressure 120/62 05/21/2024 8:57 AM DIETICIAN Pulse 74 05/21/2024 8:57 AM DIETICIAN Temperature 36.1 C (97 F) 05/21/2024 8:57 AM DIETICIAN Respiratory Rate 18 05/21/2024 8:57 AM DIETICIAN Oxygen Saturation 95% 05/21/2024 8:57 AM DIETICIAN Inhaled Oxygen Concentration - - Weight 101.6 kg (224 lb) 05/21/2024 8:57 AM DIETICIAN Height 165.1 cm (5' 5 ) 05/21/2024 8:57 AM DIETICIAN Body Mass Index 37.28 05/21/2024 8:57 AM DIETICIAN Plan of Treatment Scheduled Procedures Name Priority Associated Diagnoses Date/Ti me ESOPHAGOGASTRODUODENOSCOPY Open Access Dysphagia, unspecified type COLONOSCOPY Screen for colon cancer Procedures Procedure Name Priority Date/Time Associated Diagnosis Comments POCT HEMOGLOBIN A1C Routine 05/21/2024 9 :08 AM DIETICIAN Hyperlipidemia associated with type 2 diabetes mellitus (HCC) EGFR Routine 01/16/2024 8:49 AM CDT Therapeutic drug monitoring LIPID PANEL Routine 01/16/2024 8:49 AM CDT Hyperlipidemia associated with type 2 diabetes mellitus (HCC) ALBUMIN CREATININE RATIO, URINE Routine 01/16/2024 8:49 AM CDT Hyperlipidemia associated with type 2 diabetes mellitus (HCC) DIAGNOSTIC MAMMOGRAM BILATERAL W SHEILA Schedule Routine, Read Routine (OP Routine) 10/14/2022 1:35 PM CDT Mass of breast, unspecified laterality Breast pain DIABETES EYE EXAM Routine 06/24/2022 COLONOSCOPY Routine 05/03/2010 from Last 3 Months or Most Recently Relevant to Health Maintenance Results * POCT hemoglobin A1c (05/21/2024 9:08 AM DIETICIAN) Hemoglobin A1C, POC 6.2 4.0 - 5.6 % Blood 05/21/2024 9:08 AM DIETICIAN Lobito Cleaning MD POINT OF CARE TEST ORDERABLES Final Result * eGFR (01/16/2024 8:49 AM CDT) eGFR >90 >=60 mL/min/1. 73 m2 Comment: Interpretive Data Reference Interval Normal >/= 90 mL/min/1.73m2 Mildly decreased* 60 - 89 mL/min/1.73m2 Mildly to moderately decreased 45 - 59 mL/min/1.73m2 Moderately to severely decreased 30 - 44 mL/min/1.73m2 Severely decreased 15 - 29 mL/min/1.73m2 Kidney Failure < 15 mL/min/1.73m2 *Relative to young adult level Estimated glomerular filtration rate is determined by the 2020 CKD-EPI equation recommended by the National Kidney Foundation (A Unifying Approach to GFR Estimation: Recommendations of the NKF-ASK Task Force on Reassessing the Inclusion of Race in Diagnosing Kidney Disease, JASN 2020). The CKD-EPI equation should not be used for patients with unstable renal function and has not been validated in children and those over 70. Current interpretive data was last reviewed 2021. Blood 01/16/2024 8:49 AM CDT 01/16/2024 12:46 PM CDT us Lobito Cleaning MD LAB BLOOD ORDERABLES Final Re sult [facility] [address] Department [place] [address] * Albumin Creatinine Ratio, Urine (01/16/2024 8:49 AM CDT) Albumin Ur <12.0 mg/L Comment: Interpretive Data No reference range established. Current interpretive data was last revised 2018. Creatinine Ur 28.6 mg/dL [facility] Comment: Interpretive Data No reference range established. Current interpretive data was last revised 2018. Albumin Creatinine Ratio, Ur See Comment 1 - 29 mg/g [facility] Comment:Unable to calculate Urine 01/16/2024 8:49 AM CDT 01/16/2024 12:29 PM CDT us Lobito Cleaning MD LAB URINE ORDERABLES Final Re sult [facility] [address] Department [place] [address] * (ABNORMAL) Lipid panel (01/16/2024 8:49 AM CDT) Cholesterol 202(H) 30 - 199 mg/dL Comment: Interpretive Data Ages < or = 19 years Acceptable: <170 mg/dL Borderline high: 170-199 mg/dL High: >or= 200 mg/dL Ages > or = 20 years Desirable: <200 mg/dL Borderline high: 200-239 mg/dL High: >or= 240 mg/dL Literature References: 1. Expert Panel on Integrated Guidelines for Cardiovascular Health and Risk Reduction in Children and Adolescents. Pediatrics 2011;128:S213 2. NCEP Expert Panel. Circulation 2004;110:227 Current Interpretive Data was last revised on 2017. Triglycerides 186(H) <=149 mg/dL [facility] Comment: Interpretive Data Ages < or = 9 years Acceptable: <75 mg/dL Borderline high: 75-99 mg/dL High: >or= 100 mg/dL Ages 10 to 20 years Acceptable: <90 mg/dL Borderline high: 90-129 mg/dL High: >or= 130 mg/dL Ages > or = 20 years Desirable: <150 mg/dL Borderline high: 150-199 mg/dL High: 200-499 mg/dL Very high: >or= 499 mg/dL Literature References: 1. Expert Panel on Integrated Guidelines for Cardiovascular Health and Risk Reduction in Children and Adolescents. Pediatrics 2011;128:S213 2. NCEP Expert Panel. Circulation 2004;110:227 Current Interpretive Data was last revised on 2017. HDL 33(L) >=40 mg/dL [facility] Comment: Interpretive Data Ages < or = 19 years Acceptable: >45 mg/dL Borderline low: 40-45 mg/dL Low: <40 mg/dL Ages > or = 20 years Desirable: >or= 60 mg/dL Low: <40 mg/dL Literature References: 1. Expert Panel on Integrated Guidelines for Cardiovascular Health and Risk Reduction in Children and Adolescents. Pediatrics 2011;128:S213 2. NCEP Expert Panel. Circulation 2004;110:227 Current Interpretive Data was last revised on 2017. LDL, calculated 135(H) <=129 mg/dL [facility] Comment: Interpretive Data Ages < or = 19 years Acceptable: <110 mg/dL Borderline high: 110-129 mg/dL High: >or= 130 mg/dL Ages > or = 20 years Optimal: <100 mg/dL Near optimal: 100-129 mg/dL Borderline high: 130-159 mg/dL High: >160 mg/dL Calculated using the Lauri LDL-C estimating equation. This equation was implemented on 2023. Prior to this date LDL-C was estimated using the Friedewald equation. Literature References: 1. Expert Panel on Integrated Guidelines for Cardiovascular Health and Risk Reduction in Children and Adolescents. Pediatrics 2011;128:S213 2. NCEP Expert Panel. Circulation 2004;110:227 3. Lauri Calderon et al. MAURICE Cardiol. 2019September 02;5(5):540-548. doi: 10.1001/[email or web address].2020.0013 Current Interpretive Data was last revised on 2023. Non-HDL Cholesterol 169 mg/dL [facility] Comment: Interpretive Data Ages < or = 19 years Acceptable: <120 mg/dL Borderline high: 120-144 mg/dL High: >145 mg/dL Ages > or = 20 years When triglycerides are >200 mg/dL, Non-HDL cholesterol is a secondary target of therapy with treatment goals that are 30 mg/dL greater than the LDL cholesterol target. Literature References: 1. Expert Panel on Integrated Guidelines for Cardiovascular Health and Risk Reduction in Children and Adolescents. Pediatrics 2011;128:S213 2. NCEP Expert Panel. Circulation 2004;110:227 Current Interpretive Data was last revised on 2017. Chol/HDL ratio 6 [facility] Blood 01/16/2024 8:49 AM CDT 01/16/2024 12:29 PM CDT us Lobito Cleaning MD LAB BLOOD ORDERABLES Final Re sult [facility] [address] Department [place] [address] * Diagnostic Mammogram Bilateral W Sheila (10/14/2022 1:35 PM CDT) Anatomical Region Laterality Modality Breast Bilateral Mammography 10/14/2022 2:23 PM CDT Impressions 10/14/2022 3:09 PM CDT 1. No evidence of malignancy in either breast. 2. No mammographic or sonographic correlate for area of clinical concern in right breast. In the absence of imaging findings, any decision for further intervention should be based on the clinical assessment. OVERALL FINAL ASSESSMENT: BI-RADS Category 1: Negative. RECOMMENDATION: Annual screening mammography is recommended. Dictated by: Ce Marx MD The radiology attending physician has personally reviewed this study, and had reviewed and/or edited this written report and agrees with it. Electronically signed by: Zora Polk M.D. Narrative 10/14/2022 3:09 PM CDT EXAMINATION: BILATERAL DIGITAL DIAGNOSTIC MAMMOGRAM INCLUDING CAD AND BILATERAL DIGITAL BREAST TOMOSYNTHESIS; RIGHT BREAST SONOGRAM HISTORY: 72-year-old female with palpable abnormality within the right breast for approximately 3 months. COMPARISON: Mammogram dated 05/25/2021, 05/24/2012, 04/04/2017, 10/30/2015, 08/01/2014 TECHNIQUE: Full field digital mammographic views of BOTH breasts were performed, including computer aided detection (CAD) and BILATERAL digital breast tomosynthesis (DBT). Directed ultrasound evaluation of the RIGHT breast was performed. BREAST PARENCHYMAL COMPOSITION: The breasts are almost entirely fatty. MAMMOGRAM FINDINGS: There is no new suspicious abnormality in either breast. The mammographic appearance of the bilateral breasts is stable with comparisons. There is specifically no mammographic abnormality underlying the palpable marker in the outer central right breast at a posterior depth. There is a stable prominent low-lying right axillary lymph node/intramammary lymph node. SONOGRAM FINDINGS: Targeted sonographic images in the right breast at the 8:30 location 12 cm from the nipple in the region of palpable concern demonstrates benign-appearing fibroglandular tissue without suspicious cystic or solid mass identified. Procedure Note Zora Polk MD - 10/14/2022 EXAMINATION: BILATERAL DIGITAL DIAGNOSTIC MAMMOGRAM INCLUDING CAD AND BILATERAL DIGITAL BREAST TOMOSYNTHESIS; RIGHT BREAST SONOGRAM HISTORY: 72-year-old female with palpable abnormality within the right breast for approximately 3 months. COMPARISON: Mammogram dated 05/25/2021, 05/24/2012, 04/04/2017, 10/30/2015, 08/01/2014 TECHNIQUE: Full field digital mammographic views of BOTH breasts were performed, including computer aided detection (CAD) and BILATERAL digital breast tomosynthesis (DBT). Directed ultrasound evaluation of the RIGHT breast was performed. BREAST PARENCHYMAL COMPOSITION: The breasts are almost entirely fatty. MAMMOGRAM FINDINGS: There is no new suspicious abnormality in either breast. The mammographic appearance of the bilateral breasts is stable with comparisons. There is specifically no mammographic abnormality underlying the palpable marker in the outer central right breast at a posterior depth. There is a stable prominent low-lying right axillary lymph node/intramammary lymph node. SONOGRAM FINDINGS: Targeted sonographic images in the right breast at the 8:30 location 12 cm from the nipple in the region of palpable concern demonstrates benign-appearing fibroglandular tissue without suspicious cystic or solid mass identified. IMPRESSION: 1. No evidence of malignancy in either breast. 2. No mammographic or sonographic correlate for area of clinical concern in right breast. In the absence of imaging findings, any decision for further intervention should be based on the clinical assessment. OVERALL FINAL ASSESSMENT: BI-RADS Category 1: Negative. RECOMMENDATION: Annual screening mammography is recommended. Dictated by: Ce Marx MD The radiology attending physician has personally reviewed this study, and had reviewed and/or edited this written report and agrees with it. Electronically signed by: Zora Polk M.D. Lobito Cleaning MD IMG MAMMO PROCEDURES Final Re sult * DIABETES EYE EXAM (06/24/2022) SCRIBED DIABETIC DILATED EYE EXAM Normal Historical Jett GUTIERREZ HEALTH MAINTENANCE Final Result * COLONOSCOPY (05/03/2010) Colonoscopy Normal Gregor Frausto MD HEALTH MAINTENANCE Final Result from Last 3 Months or Most Recently Relevant to Health Maintenance Insurance MEDICARE FOR LIFE MEDICARE FOR LIFE MEDICARE [facility] Address: [facility] [address] [place] [address] FOR LIFE Care Teams Hat Measurer Relationship Specialty Start Date End Date Lobito Cleaning MD [address] [facility] [address] [place] [address] PCP - General Internal Medicine 11/02/20
--- OUTSIDE RECORDS SUMMARY | 2024-06-21 13:51 | XMS_ITS | Continuity of Care Document ---
Author Name [facility] Organization [facility] Care Team Providers Care Website Optimization Strategist Name Role Phone [facility] Unavailable Unavailable Problems Combined list of problems from Department of Defense and Veterans Affairs facilities. It does not include entries that were removed or entered in error. Problem Status Onset Date Problem Type Date of Resolution Comments Source chest pain Inactive 04/25/2010 Condition DoD Patient Counseling: Inactive Condition D oD Need For Vaccination Against Influenza Active Condition DoD Medications Combined list of outpatient medications from Department of Defense and Veterans Affairs facilities.Medications provided include 1) outpatient medications from the last 15 months, and 2) patient-reported medications. Medication Details Route Status Patient Instructions Prescription Expires Prescription Number Last Dispense Date Ordering Provider Order Date Order Qty Source albuterol 90 mcg inhaler [8.5g] See Instruct ions, # 8.5 g, 11 total refill(s ), Hard Stop Complet ed 01/02/2024 8.5 Ambulat ory Pharmac y amLODIPine 5 mg oral tablet amLODIPi ne 5 mg oral tablet Start Date: 01/06/20 Status: Ordered Ordered No Facilit y Access amLODIPine 5 mg tablet See Instruct ions, Oral, Daily, # 90 EA, 1 total refill(s ), Hard Stop Oral (given by mouth) Discont inued 09/04/2023 90.0 Ambulat ory Pharmac y amLODIPine 5 mg tablet 5 mg, Oral, Daily, # 90 EA, 3 total refill(s ), Hard Stop Oral (given by mouth) Ordered 11/12/2024 90.0 Ambul at ory Pharmac y amLODIPine 5 mg tablet 5 mg, Oral, Daily, # 90 EA, 0 total refill(s ), Hard Stop Oral (given by mouth) Complet ed 01/02/2024 90.0 Ambulat ory Pharmac y AZITHROMYCI N (azithromyc in), 250 MG, TABLET, ORAL, AUROBINDO PHARM, 30 ea. BOTTLE Active [id number] 4 2023 4 Pharmac y Data Transac tion Service Facilit y AZITHROMYCI N (azithromyc in), 250 MG, TABLET, ORAL, TAGI PHARMA, 30 ea. BOTTLE Active [id number] 4 2023 4 Pharmac y Data Transac tion Service Facilit y AZITHROMYCI N (azithromyc in), 250 MG, TABLET, ORAL, TAGI PHARMA, 30 ea. BOTTLE Active [id number] 4 2023 4 Pharmac y Data Transac tion Service Facilit y azithromyci n 250 mg oral tablet 0 total refill(s ) Ordered No Facilit y Access CETIRIZINE HCL (cetirizine HCl), 10 MG, TABLET, ORAL, 'S LAB, 500 ea. BOTTLE Active [id number] 4 2023 30 Pharmac y Data Transac tion Service Facilit y clindamycin 150 mg oral capsule 0 total refill(s ) Ordered No Facilit y Access clindamycin 300 mg oral capsule 0 total refill(s ) Ordered No Facilit y Access dulaglutide 0.75 mg/0.5 mL subcutaneou s solution INJECT 0.75MG SUB-CUTA NEOUSLY ONCE WEEKLY, # 4 mL, 2 total refill(s ), Acute Complet ed 11/14/2022 4.0 Ambulat ory Pharmac y famotidine 40 mg tablet 40 mg, Oral, Daily, # 90 EA, 3 total refill(s ), Hard Stop Oral (given by mouth) Ordered 11/12/2024 90.0 Ambul at ory Pharmac y fluticasone 50 mcg/inh nasal spray fluticas one 50 mcg/inh nasal spray Start Date: 11/10/19 Status: Ordered Ordered No Facilit y Access GLIMEPIRIDE 4 MG ORAL TAB Do not drink alcohol. Avoid exposure to sun.Take or use exactly as directed . 01/02/2024 [id number] 2022 30 [facility] Kyle HYLTON ([facility] glimepiride 4 mg oral tablet glimepir martha 4 mg oral tablet Start Date: 01/06/20 Status: Ordered Ordered No Facilit y Access glimepiride 4 mg tablet 4 mg, Oral, Daily, # 90 EA, 3 total refill(s ), Hard Stop Oral (given by mouth) Discont inued 01/16/2024 90.0 Ambulat ory Pharmac y glimepiride 4 mg tablet 4 mg, Oral, Daily, # 30 EA, 11 total refill(s ), Hard Stop Oral (given by mouth) Complet ed 01/02/2024 30.0 Ambulat ory Pharmac y Januvia 100 mg tablet 100 mg, Oral, Daily, # 90 EA, 3 total refill(s ), Hard Stop Oral (given by mouth) Complet ed 01/05/2021 90.0 Ambulat ory Pharmac y Januvia 100 mg tablet 100 mg, Oral, Daily, # 90 EA, 3 total refill(s ), Hard Stop, JENNIFER Oral (given by mouth) Discont inued 09/05/2023 90.0 Ambulat ory Pharmac y levothyroxi ne (Synthroid) 175 mcg tablet See dose instruct ions in comments , # 90 EA, 1 total refill(s ), Acute Complet ed 02/06/2023 90.0 Ambulat ory Pharmac y levothyroxi ne (Synthroid) 175 mcg tablet 175 mcg, Oral, Daily, # 90 EA, 3 total refill(s ), Hard Stop Oral (given by mouth) Ordered 11/12/2024 90.0 Ambul at ory Pharmac y levothyroxi ne 150 mcg oral tablet levothyr oxine 150 mcg oral tablet Start Date: 01/07/20 Status: Ordered Ordered No Facilit y Access levothyroxi ne 175 mcg oral tablet levothyr oxine 175 mcg oral tablet Start Date: 04/25/20 Status: Ordered Ordered No Facilit y Access Levothyroxi ne Sodium (Levothroid ) Tablet 175 mcg Oral Take on empty stomach. Take with plenty of water.Be careful if taking OTCs.Raymond e or use exactly as directed . 01/02/2024 [id number] 2022 90 [facility] Kyle [facility] ([facility] [place] LORAZEPAM (lorazepam) , 1 MG, TABLET, ORAL, AUROBINDO PHARM, 500 ea. BOTTLE Active [id number] 4 2023 90 Pharmac y Data Transac tion Service Facilit y LORAZEPAM (lorazepam) , 1 MG, TABLET, ORAL, AUROBINDO PHARM, 500 ea. BOTTLE Active [id number] 4 2023 90 Pharmac y Data Transac tion Service Facilit y LORAZEPAM (lorazepam) , 1 MG, TABLET, ORAL, AUROBINDO PHARM, 500 ea. BOTTLE Active [id number] 2023 90 Pharmac y Data Transac tion Service Facilit y LORAZEPAM (lorazepam) , 1 MG, TABLET, ORAL, TEVA [place], 500 ea. BOTTLE Cancele d [id number] : 2023 0 Pharmac y Data Transac tion Service Facilit y LORAZEPAM (lorazepam) , 1 MG, TABLET, ORAL, TEVA [place], 500 ea. BOTTLE Cancele d [id number] : 2022 0 Pharmac y Data Transac tion Service Facilit y LORAZEPAM (lorazepam) , 1 MG, TABLET, ORAL, TEVA [place], 500 ea. BOTTLE Active [id number] 3 2022 90 Pharmac y Data Transac tion Service Facilit y LORazepam 1 mg oral tablet LORazepa m 1 mg oral tablet Start Date: 04/25/20 Status: Ordered Ordered No Facilit y Access METOPROLOL SUCCINATE (metoprolol succinate), 25 MG, TAB ER 24H, ORAL, ACTAVIS/TEV A, 100 ea. BOTTLE Active [id number] 4 2023 90 Pharmac y Data Transac tion Service Facilit y metoprolol succinate 25 mg oral tablet, extended release metoprol ol succinat e 25 mg oral tablet, extended release Start Date: 01/12/20 Status: Ordered Ordered No Facilit y Access metoprolol succinate ER 25 mg/24 hour tablet 25 mg, Oral, Daily, # 90 EA, 3 total refill(s ), Hard Stop Oral (given by mouth) Ordered 11/12/2024 90.0 Ambul at ory Pharmac y metoprolol succinate ER 25 mg/24 hour tablet See Instruct ions, # 90 EA, 3 total refill(s ), Hard Stop Complet ed 01/02/2024 90.0 Ambulat ory Pharmac y METRONIDAZO LE (metronidaz ole), 375 MG, CAPSULE, ORAL, ALEMBIC PHARMAC, 50 ea. BOTTLE Active [id number] 2023 14 Pharmac y Data Transac tion Service Facilit y metroNIDAZO LE 500 mg oral tablet 0 total refill(s ) Ordered No Facilit y Access nitrofurant oin macrocrysta ls 100 mg oral capsule 0 total refill(s ) Ordered No Facilit y Access pantoprazol e 40 mg oral delayed release tablet pantopra zole 40 mg oral delayed release tablet Start Date: 02/25/20 Status: Ordered Ordered No Facilit y Access PAXLOVID (EUA) (nirmatrelv ir/ritonavi r), 300-100 MG, TAB DS PK, ORAL, PFIZER LABS., 30 ea. BLIST PACK Cancele d [id number] : 2023 0 Pharmac y Data Transac tion Service Facilit y PAXLOVID (EUA) (nirmatrelv ir/ritonavi r), 300-100 MG, TAB DS PK, ORAL, PFIZER LABS., 30 ea. BLIST PACK Cancele d [id number] : 2022 0 Pharmac y Data Transac tion Service Facilit y rosuvastati n 10 mg tablet 10 mg, Oral, Daily, # 30 EA, 11 total refill(s ), Hard Stop Oral (given by mouth) Complet ed 01/02/2024 30.0 Ambulat ory Pharmac y SITagliptin (U/D) 100 MG ORAL TAB Do not drink alcohol. 01/02/2024 [id number] 2022 90 [facility] Kyle HYLTON ([facility] [place]) SITagliptin 100 mg oral tablet TAKE 1 TABLET (100 MG TOTAL) BY MOUTH DAILY *BRAND NAME*, # 90 EA, 3 total refill(s ), Acute Complet ed 10/01/2023 90.0 Ambulat ory Pharmac y SITagliptin 100 mg oral tablet SITaglip tin 100 mg oral tablet Start Date: 04/18/20 Status: Ordered Ordered No Facilit y Access Synthroid 175 mcg tablet 175 mcg, Oral, Daily, # 90 EA, 3 total refill(s ), Hard Stop Oral (given by mouth) Discont inued 12/25/2020 90.0 Ambulat ory Pharmac y TRIAMCINOLO NE ACETONIDE (triamcinol one acetonide), 0.1 %, OINT. (G), TOPICAL, [facility]O [facility] [place], 30 g TUBE Active [id number] 4 2023 30 Pharmac y Data Transac tion Service Facilit y Trulicity Pen 0.75 mg/0.5 mL [4EA=2mL] See Instruct ions, # 2 mL, 11 total refill(s ), Hard Stop Notes: refriger ate Discont inued 01/16/2024 2.0 Ambulat ory Pharmac y Allergies, Adverse Reactions, Alerts Combined list of allergies from Department of Defense and Veterans Affairs facilities. It does not include entries that were removed or entered in error. Substance Category Reaction Severity Reaction type Status Date Reported Comments Source CODEINE Drug allergy (disorder) Unknown active [address] [place] [address] Kyle HYLTON ([facility]) codeine Propensity to adverse reactions to substance Unknown Active per pt [id number] Ambulatory Pharmacy iodine containing compounds Drug allergy Unknown Unknown Active Ambulatory Pharmacy NexIUM Drug allergy Unknown Unknown Active Ambulatory Pharmacy PENICILLINS Drug allergy (disorder) Unknown active 5 [facility] penicillins Propensity to adverse reactions to substance Unknown Active 5 RASH Ambulatory Pharmacy shellfish Food allergy Unknown Unknown Active Ambulatory Pharmacy SULFUR (SULFUR) Drug allergy (disorder) Unknown active 5 [facility] sulfur topical Propensity to adverse reactions to substance Unknown Active 5 NOT SURE Ambulatory Pharmacy Encounters Combined list of: 1) Encounters from Department of Veterans Affairs facilities going backup to the last 18 months, not all VA inpatient encounters are included; 2) Encounters from the Department of Defense facilities going backup to 280 months. Location Location Details Encounter Type Encounter Number Reason For Visit Attending Provider ADM Date DC Date Status Disposition Source [facility](Al lergy Cl WR) OUTPATIENT [id number] flu shot/DEMETRIUS Munroe 04/15 Released w/o Limitations [facility]( Allergy Cl WR) [address] [place] [address] Kyle HYLTON ([facility]War rior Op Med Cln Tm A Ad) OUTPATIENT [id number] chest pain on Apr ZARIA ENRIQUEZ 04/[address] [place] [address] [place] [facility] [place] arrior Op Med Cln Tm A Ad[place] [employer], [employer](Kvng L[facility]pez [facility] Team [facility]) OUTPATIENT [id number] 7 Notes Entered by: MALENA FERRERA 31 Dec 2019 1049 ------- ------- ------- ------- -- Rapid manuel e DIANNA BOOGIE Dominique 12/30 Released w/o Limitations [facility] [employer], [employer] ([facility]) Procedures Combined list of: 1) Procedures from Department of Veterans Affairs facilities [facility], not all VA non-surgical procedures are included; 2) All procedures from the Department of Defense facilities. Procedure Procedure Type Code Date Perfomer Comments [facility] e INFLUENZA VIRUS VACCINE, TRIVALENT (IIV3), SPLIT VIRUS, 0.5 ML DOSAGE, FOR INTRAMUSCULAR USE 04/15/[address] [facility] INJECTION, KETOROLAC TROMETHAMINE, PER 15 MG 05/04/[address] [facility] INFLUENZA VIRUS VACCINE, TRIVALENT (IIV3), SPLIT VIRUS, 0.5 ML DOSAGE, FOR INTRAMUSCULAR USE 03/27/[address] [facility] Immunization Administration By Injection, One Vaccine Immunization Administration By Injection, One Vaccine [id number] 04/15/[address] [facility] Influenza Split Virus Vaccine 0.5mL Dosage Intramuscular 04/15/[address] [facility] No data available for this section Ambulato ry Pharmacy Social History Combined list of available smoking, tobacco, and other social history from Department of Defense and Veterans Affairs facilities. Social History Type Response Date Comment [facility] e Female 06/16/2020 Ambulatory Pha rmacy This section is an empty soc ial history section. DoD Sexual Orientation Ambula tory Pharmacy Gender identity Ambulator y Pharmacy Assessment and Plan Combined list of future care activities from Department of Defense and Veterans Affairs facilities (e.g., assessment and plan notes, appointments, orders, and referrals). Additional future care activities may be listed in the Plan of Care section. Result Assessment and Plan Date Source Assessment and Plan No data available for this section 06/21/2024 Ambulatory Pharmacy Functional Status Combined list of recent functional and cognitive assessments recorded at Department of Defense and Veterans Affairs (VA).VA Functional Perry Measurement (FIM) Scale: 1 = Total Assistance (Subject = 0% +), 2 = Maximal Assistance (Subject = 25% +), 3 = Moderate Assistance (Subject = 50% +), 4 = Minimal Assistance (Subject = 75% +), 5 = Supervision, 6 = Modified Perry (Device), 7 = Complete Perry (Timely, Safely). Assessment Date/Time Source Assessment Type Assessment Skill Assessment Score Assessment Details No data available for this section
--- OUTSIDE RECORDS SUMMARY | 2024-06-21 13:51 | XMS_ITS | Clinical Summary ---
Author Organization [facility] Address [address] [place] [address] Care Team Providers Care Wood Buffer Name Role Phone Lobito Cleaning MD Primary Care Provider [phone] Allergies Active Allergy Reactions Criticality Noted Date [...] hyperglycemia, without long-term current use of insulin ([facility]) 100 each by other route once a week Use for Trulicity injection weekly. 100 each 1 4 Active blood-glucose meter kitIndications: Diabetes mellitus due to underlying condition with hyperglycemia, without long-term current use of insulin ([facility]) Use daily or as directed for monitoring of diabetes 1 kit 4 Active blood glucose diagnostic stripIndication s:Diabetes mellitus due to underlying condition with hyperglycemia, without long-term current use of insulin ([facility]) 1 each by other route 2 (two) times a day before lunch and dinner 180 each 3 4 09/05/19 25 Active lancets 31 gauge miscIndications :Diabetes mellitus due to underlying condition with hyperglycemia, without long-term current use of insulin ([facility]) 1 strip 2 (two) times a day before lunch and dinner 100 each 3 4 09/05/19 25 Active levothyroxine (SYNTHROID) 175 mcg tablet Take 1 tablet (175 mcg total) by mouth daily 90 tablet 4 4 Active metoprolol XL (TOPROL-XL) 25 mg extended release tablet Take 1 tablet (25 mg total) by mouth daily 90 tablet 3 4 11/13/19 25 Active amLODIPine (NORVASC) 5 mg tablet Take 1 tablet (5 mg total) by mouth daily 90 tablet 3 4 Active famotidine (PEPCID) 40 mg tablet Take 1 tablet (40 mg total) by mouth daily 90 tablet 3 4 11/13/19 25 Active dulaglutide (TRULICITY) 1.5 [...] 11/13/2023 Cellulitis of right anterior lower leg 4 Assessment & Plan (07/09/2023 8:54 AM SANITATION LABORER): Symptoms are improved. Complete antibiotics and continue steroid cream. Palpitations 07/09/2023 Assessment & Plan (05/21/2024 9:21 AM SANITATION LABORER): Reorder holter monitor. Reviewed normal TSH. Assessment & Plan (07/09/2023 8:58 AM SANITATION LABORER): Order monitor. Await TSH. She is intolerant of CPAP. Essential hypertension 01/01/2023 Assessment & Plan (03/02/2024 6:36 AM CDT): Hypertension is controlled. Continue current regimen. Assessment & Plan (01/02/2023 3:40 PM CDT): Hypertension is controlled. Continue current regimen. Morbid (severe) obesity due to excess calories 0 01/28/2022 Body mass index 40.0-44.9, adult ([facility]) 01/28 Chest pain 01/28/2022 Assessment & Plan [...] prn. Assessment & Plan (05/31/2021 2:39 PM SANITATION LABORER): -PVR was low today at 15mL. -Reports only feeling this when she believes she has UTI. -No current symptoms. Acute cystitis without hematuria 05/31/2021 Assessment & Plan (05/31/2021 2:40 PM SANITATION LABORER): -Most recent UA done by PCP showing [...] 04/26/2021 Assessment & Plan (04/26/2021 10:11 AM SANITATION LABORER): Reviewed CXR. Order Chest CT. Dysuria 04/25/2021 Assessment & Plan (11/29/2021 2:44 PM CDT): -Has increased water intake. -No issues with dysuria or UTI-like symptoms since initial office visit. PLAN: -Continue with adequate water intake. -Reduce soda intake. Assessment & Plan (04/26/2021 10:07 AM SANITATION LABORER): Order UA. reviewed urinary hygiene. Treat with macrobid and await culture. Diarrhea of infectious origin 01/29/2021 Assessment & Plan (01/29/2021 9:48 AM CDT): Likely C.dif and antibiotic related. Start metronidazole. Cellulitis of buttock 01/29/2021 Assessment & Plan (01/29/2021 9:51 AM CDT): Cellulitis improved with antibiotics. Rash 01/28/2021 Screen for colon cancer 01/02/2021 Overview (01/02/2021): Added automatically from request for surgery [id number] Chronic right shoulder pain 10/05/2018 Assessment & Plan (10/05/2018 10:41 AM CDT): Reviewed ROM exercises for scapular pain. Class 3 severe obesity due t o excess calories with serious comorbidity and body mass index (BMI) of 40.0 to 44.9 in adult 04/21/2018 Assessment & Plan (04/26/2021 10:18 AM SANITATION LABORER): BMI is more than 40, reviewed calorie restrictions. Assessment & Plan (04/21/2018 8:56 AM SANITATION LABORER): BMI is more than 40, reviewed calorie restrictions. Diastolic heart failure secondary to hypertensio n ([facility]) 10/03/2017 Assessment & Plan (04/21/2018 6:47 AM SANITATION LABORER): Hypertension is controlled. Continue current regimen.CHF compensated. Continue current regimen. Reviewed low sodium diet. Assessment & Plan (10/03/2017 6:32 AM CDT): Hypertension is controlled. Continue current regimen. CHF compensated. Continue current regimen. Reviewed low sodium diet. H/O adenomatous polyp of colon 10/03/2017 Assessment & Plan (10/03/2017 6:38 AM CDT): Advised colonoscopy. Hyperlipidemia associated with type 2 diabetes larry halimamike 04/04/2017 Assessment & Plan (05/21/2024 9:13 AM SANITATION LABORER): Reviewed recent HgbA1C was improved to 6.2. [...] rosuvastatin. Assessment & Plan (07/09/2023 5:51 AM SANITATION LABORER): Her diabetes is uncontrolled;I advised her to follow with Endocrinology. Continue Januvia and glimepiride. Diabetes is complicated by hyperlipidemia;I advised a statin. Assessment & Plan (01/02/2023 3:37 PM CDT): Her diabetes is uncontrolled;I advised her to follow with Endocrinology. Continue Januvia and resume glimepiride. Diabetes is complicated by hyperlipidemia;I advised a statin. Assessment & Plan (05/31/2022 6:18 AM SANITATION LABORER): She does not have an appointment with [...] control. Assessment & Plan (04/25/2021 11:55 AM SANITATION LABORER): Reviewed HgbA1C was elevated at 7.5 on 11/02/20. Diabetes is not controlled. Continue current regimen and monitor diet. Reviewed dietary goals for elevated triglycerides,. Assessment & Plan (10/05/2018 6:41 AM CDT): Reviewed proper diet for elevated triglycerides. Assessment & Plan (04/21/2018 6:48 AM SANITATION LABORER): Reviewed proper diet. Continue diet for elevated triglycerides. Assessment & Plan (10/03/2017 6:33 AM CDT): Reviewed proper diet for hyperlipidemia. Continue Diabetic regimen. Advised annual eye exam. Assessment & Plan (04/04/2017 9:27 AM SANITATION LABORER): Reviewed proper diet. She will consider statin therapy. Morbid obesity 04/04/2017 Assessment & Plan (04/04/2017 9:20 AM SANITATION LABORER): BMI is more than 40. Encouraged weight loss. Hypertension 10/07/2013 Assessment & Plan (05/21/2024 5:41 AM SANITATION LABORER): Hypertension is controlled. Continue current regimen. Assessment & Plan (01/16/2024 5:35 AM CDT): Hypertension is controlled. Continue current regimen. Assessment & Plan (11/13/2023 6:15 AM CDT): Hypertension is controlled. Continue current regimen. Assessment & Plan (07/09/2023 5:51 AM SANITATION LABORER): Hypertension is controlled. Continue current regimen. Assessment & Plan (05/31/2022 6:17 AM SANITATION LABORER): Hypertension is controlled. Continue current regimen. Assessment [...] 04/06/21. Assessment & Plan (04/25/2021 11:54 AM SANITATION LABORER): Hypertension is controlled. Continue current regimen. Assessment & Plan (10/05/2018 6:41 AM CDT): Hypertension is controlled. Continue current regimen. Assessment & Plan (04/04/2017 6:58 AM SANITATION LABORER): Hypertension is controlled. Continue current regimen. Type 2 diabetes mellitus wit h hyperglycemia, without long-term current use of insulin ([facility]) 10/07/2013 Assessment & Plan (01/28/2021 9:10 AM CDT): Reviewed HgbA1C was elevated at 7.5 on 11/02/20. Diabetes is not controlled. Continue current regimen and monitor diet. Assessment & Plan (10/05/2018 6:42 AM CDT): Continue glimepiride. Continue diet for elevated triglycerides. Assessment & Plan (04/21/2018 6:50 AM SANITATION LABORER): Last Hgba1C was elevated. Continue current regimen. Assessment & Plan (04/04/2017 6:59 AM SANITATION LABORER): Continue current regimen. Advised annual eye exam. Reviewed proper diet. Continue statin therapy. Generalized anxiety disorder 09/18/2013 Overview (08/07/2016): GENERALIZED ANXIETY DIS Assessment & Plan (01/01/2023 8:12 AM CDT): Continue lorazepam as needed. She declines a SSRI. Hypothyroidism 09/18/2013 Overview (08/09/2016): HYPOTHYROIDISM NOS Assessment & Plan (05/21/2024 5:41 AM SANITATION LABORER): Continue levothyroxine. Assessment & Plan (03/02/2024 6:36 AM CDT): Continue levothyroxine. Assessment & Plan (01/16/2024 5:35 AM CDT): Continue levothyroxine. Order labs. Assessment & Plan (11/13/2023 6:15 AM CDT): Continue levothyroxine. Assessment & Plan (07/09/2023 5:51 AM SANITATION LABORER): Continue levothyroxine and Endocrinology care. Assessment & Plan (01/01/2023 8:12 AM CDT): Continue levothyroxine and Endocrinology care. Assessment & Plan (05/31/2022 6:17 AM SANITATION LABORER): Continue levothyroxine and Endocrinology care. Assessment & Plan (01/28/2022 7:04 AM CDT): Continue levothyroxine and Endocrinology care. Assessment & Plan (09/13/2021 9:06 AM CDT): Continue levothyroxine. Assessment & Plan (07/26/2021 9:41 AM CDT): Continue levothyroxine. Order TSH. Assessment & Plan (04/25/2021 11:54 AM SANITATION LABORER): Reviewed normal TSH 11/02/20. Continue levothyroxine. Assessment & Plan (01/28/2021 9:09 AM CDT): Reviewed normal TSH 11/02/20. Continue levothyroxine. Assessment & Plan (10/05/2018 6:42 AM CDT): Continue levothyroxine. Assessment & Plan (04/21/2018 6:49 AM SANITATION LABORER): Continue levothyroxine. Recent TSH at goal. Assessment & Plan (10/03/2017 6:33 AM CDT): Problem controlled. Continue levothyroxine. Assessment & Plan (04/04/2017 6:59 AM SANITATION LABORER): Continue levothyroxine. Gastroesophageal reflux disease 09/18/2013 Overview [...] contents abnormal 12/17/201105/2017 Diabetes mellitus 06/21/2011 10/03/2017 Encounters Date Type Department Care Team Description 06/21/[address] [place] [id number] Lobito Cleaning MD Medication Request 05/21/2024 10:00 AM SANITATION LABORER Office Visit [place] [id number] [facility] [address] [place] [address] Lobito Cleaning MD Primary hypertension (Primary Dx); Hypothyroidism, unspecified type; Hyperlipidemia associated with type 2 diabetes mellitus (HCC); Palpitations from Last 3 Months Immunizations Immunization Administration Dates Next Due Influenza, [...] V accination (12+ YRS) 02/25/2023 Tdap 07/06/2012,07/06/2012 Surgical History Surgery Date Site/Laterality Comments OTHER SURGICAL HISTORY Diabetes type 2: diet managment OTHER SURGICAL HISTORY 1965 : OTHER SURGICAL HISTORY 1971 : OTHER SURGICAL HISTORY 1974 : OTHER SURGICAL HISTORY Hypothyroidism, primary: Drug therapy OTHER SURGICAL HISTORY Cyst (?abscess) over left eye: Hospital admission, I&D, IV antibiotics OTHER SURGICAL HISTORY Cellulitis of rt breast: IV antibiotics Medical History Medical History Date Comments Anxiety disorder Anxiety Hypertension Hypertension Hx Other Medical Hypothyroidism, Primary Type 2 diabetes mellitus (HCC) D iabetes type 2 Adiposity Obesity Hx Other Medical 1965 ; Outc ome: 40 week 10 lb(s) 3 oz Female Hx Other Medical 1971 ; Outc ome: 40 week 10 lb(s) 4 oz Female Hx Other Medical 1974 ; Outc ome: 40 week 8 lb(s) Female Hx Other Medical 2011 Hypothyroidism, primary Hx Other Medical 02/2014 Cyst (?abscess) over left eye; Comments: JST 06/02/2014 -; Laterality: left Hx Other Medical 12/2013 Cellulitis of r t breast; Comments: JST 06/02/2014 -; Laterality: right Family History Medical History Relation Name Comments Allergies Brother 1 Allergies; Diabetes Brother 2 Diabetes mellit us; Hypertension Brother 3 Hypertension; Breast cancer Cousin Cancer, breast ; Heart disease Father Heart disease; Breast cancer Mother Cancer, breast ; Diabetes Mother Diabetes mellit us; Cancer Other 1 Family history of Cancer -; Depression Other 2 Family history of Depression; Diabetes Other 3 Family history of Diabetes mellitus; Hypertension Other 4 Family history of Hypertension; Relation Name Status Comments Brother 1 Brother 2 Brother 3 Cousin Father Mother Other 1 Other 2 Other 3 Other 4 Social History Tobacco Use Types Packs/Day Years [...] on file Legal Sex Female 2:19 PM SANITATION LABORER Gender Identity Not on file Sexual Orientation Not on file Obstetrics History Last Filed Vital Signs Vital Sign Reading Time Taken Comments Blood Pressure 120/62 05/21/2024 8:57 AM SANITATION LABORER Pulse 74 05/21/2024 8:57 AM SANITATION LABORER Temperature 36.1 C (97 F) 05/21/2024 8:57 AM SANITATION LABORER Respiratory Rate 18 05/21/2024 8:57 AM SANITATION LABORER Oxygen Saturation 95% 05/21/2024 8:57 AM SANITATION LABORER Inhaled Oxygen Concentration - - Weight 101.6 kg (224 lb) 05/21/2024 8:57 AM SANITATION LABORER Height 165.1 cm (5' 5 ) 05/21/2024 8:57 AM SANITATION LABORER Body Mass Index 37.28 05/21/2024 8:57 AM SANITATION LABORER Plan of Treatment Scheduled Procedures Name Priority Associated Diagnoses Date/Ti me ESOPHAGOGASTRODUODENOSCOPY Open Access Dysphagia, unspecified type COLONOSCOPY Screen for colon cancer Health Maintenance Due Date Last Done Comments Hepatitis C Screening 1950 Osteoporosis Screening-Bone Density Scan 1950 Hepatitis B Screening 1968 Pneumococcal vaccine 65+ (1 of 2 - PCV) 1969 Zoster Vaccine (1 of 2) 2000 Colon Cancer Screening-Colonoscopy 05/03/2020 05/03/2010 Well Visit 65+ 11/02/2021 11/02/2020 DTaP/Tdap/Td Vaccine (3 - Td or Tdap) 07/06/2022 07/06/2012, 07/06/2012 Dilated Eye Exam 06/24/2023 06/24/2022, 06/04/2017 Breast Cancer Screening-Mammogram 10/15/2023 10/14/2022, 05/25/2021, 05/27/2018, Additional history exists Hemoglobin A1C 11/18/2024 05/21/2024, 01/03, 07/09/2023, Additional history exists Albumin Creatinine Ratio, Urine 01/15/2025 01/16/2024, 07/09/2023, 05/31/2022, Additional history exists Covid-19 Vaccine ( season) 2025 02/25/2023, 03/20/2021, 07/26/2020, Additional history exists Postponed from 01/04/2024 (Patient declined, but will receive in the future) Fall Risk Assessment 01/15/2025 01/16/2024, 07/26/2021, 02/28/2021, Additional history exists Lipid Panel 01/15/2025 01/16/2024, 03/0 10/2023, 01/02/2023, Additional history exists eGFR 01/15/2025 01/16/2024, 07/0 12/2023, 07/09/2023, Additional history exists Depression Screening 05/21/2025 05/21/2024, 03/02/2024, 01/16/2024, Additional history exists Foot Exam 05/21/2025 05/21/2024, 02/03, 01/16/2024, Additional history exists Colon Cancer Screening-CT Colonography Discontinued 05/03/2010 Colon Cancer Screening-DNA Stool Discontinued 05/03/2010 Colon Cancer Screening-FIT Discontinued 05/03/2010 Colon Cancer Screening-Sigmoidoscopy Discontinued 05/03/2010 Influenza Vaccine Completed 03/02/2024, , 02/21/2021, Additional history exists Procedures Procedure Name Priority Date/Time Associated Diagnosis Comments POCT HEMOGLOBIN A1C Routine 05/21/2024 9 :08 AM SANITATION LABORER Hyperlipidemia associated with type 2 diabetes mellitus [...] * POCT hemoglobin A1c (05/21/2024 9:08 AM SANITATION LABORER) Hemoglobin A1C, POC 6.2 4.0 - 5.6 % Blood 05/21/2024 9:08 AM SANITATION LABORER Lobito Cleaning MD POINT OF CARE TEST [...] 8:49 AM CDT 01/16/2024 12:46 PM CDT Lobito Cleaning MD LAB BLOOD ORDERABLES Final Re sult Performing Organization Address [facility] de Phone Number [facility] [place] [address] * Albumin Creatinine Ratio, Urine (01/16/2024 8:49 AM CDT) Albumin Ur <12.0 mg/L Comment: Interpretive Data No reference range established. Current interpretive data was last revised 2018. Creatinine Ur 28.6 mg/dL [facility] Comment: Interpretive Data No reference range established. Current interpretive data was last revised 2018. Albumin Creatinine Ratio, Ur See Comment 1 - 29 mg/g [facility] Comment:Unable to calculate Urine 01/16/2024 8:49 AM CDT 01/16/2024 12:29 PM CDT Lobito Cleaning MD LAB URINE ORDERABLES Final Re sult Performing Organization Address [facility] de Phone Number [facility] [place] [address] * (ABNORMAL) Lipid panel (01/16/2024 8:49 AM [...] revised on 2017. Triglycerides 186(H) <=149 mg/dL [facility] Comment: Interpretive Data Ages < or = [...] revised on 2017. HDL 33(L) >=40 mg/dL [facility] Comment: Interpretive Data Ages < or = [...] on 2017. LDL, calculated 135(H) <=129 mg/dL [facility] Comment: Interpretive Data Ages < or = [...] 3. Lauri Calderon et al. MAURICE Cardiol. 2020 September 02;5(5):540-548. doi: [email or web address] Current Interpretive Data was last revised on 2023. Non-HDL Cholesterol 169 mg/dL [facility] Comment: Interpretive Data Ages [...] last revised on 2017. Chol/HDL ratio 6 [facility] Blood 01/16/2024 8:49 AM CDT 01/16/2024 12:29 PM CDT Lobito Cleaning MD LAB BLOOD ORDERABLES Final Re sult [facility] Department [place] [address] * Diagnostic Mammogram Bilateral W Sheila (10/14/2022 [...] SCRIBED DIABETIC DILATED EYE EXAM Normal Historical Provider HEALTH MAINTENANCE Final Result * COLONOSCOPY (05/03/2010) Colonoscopy Normal Historical Provider HEALTH MAINTENANCE Final Result from Last 3 Months or Most Recently Relevant to Health Maintenance Insurance MEDICARE FOR LIFE MEDICARE FOR LIFE MEDICARE FOR LIFE Care Teams Wood Buffer Relationship Specialty Start Date End Date Lobito Cleaning MD [id number] [facility] [address] [place] [address] PCP - General Internal Medicine 11/02/20
--- OUTSIDE RECORDS SUMMARY | 2024-06-21 14:25 | XMS_ITS | Clinical Summary ---
Author Organization [facility] Address [address] [place] [address] Care Team Providers Care Engine Specialist Name Role Phone Lobito Cleaning MD Primary Care Provider [phone] Allergies Active Allergy Reactions Criticality Noted Date [...] hyperglycemia, without long-term current use of insulin ([facility]) 100 each by other route once a week Use for Trulicity injection weekly. 100 each 1 4 Active blood-glucose meter kitIndications: Diabetes mellitus due to underlying condition with hyperglycemia, without long-term current use of insulin ([facility]) Use daily or as directed for monitoring of diabetes 1 kit 4 Active blood glucose diagnostic stripIndication s:Diabetes mellitus due to underlying condition with hyperglycemia, without long-term current use of insulin ([facility]) 1 each by other route 2 (two) times a day before lunch and dinner 180 each 3 4 09/05/19 25 Active lancets 31 gauge miscIndications :Diabetes mellitus due to underlying condition with hyperglycemia, without long-term current use of insulin ([facility]) 1 strip 2 (two) times a day [...] 4 Assessment & Plan (07/09/2023 8:54 AM QUILL CLEANING MACHINE OPERATOR): Symptoms are improved. Complete antibiotics and continue steroid cream. Palpitations 07/09/2023 Assessment & Plan (05/21/2024 9:21 AM QUILL CLEANING MACHINE OPERATOR): Reorder holter monitor. Reviewed normal TSH. Assessment & Plan (07/09/2023 8:58 AM QUILL CLEANING MACHINE OPERATOR): Order monitor. Await TSH. She is intolerant of CPAP. Essential hypertension 01/01/2023 Assessment & Plan (03/02/2024 6:36 AM CDT): Hypertension is controlled. Continue current regimen. Assessment & Plan (01/02/2023 3:40 PM CDT): Hypertension is controlled. Continue current regimen. Morbid (severe) obesity due to excess calories 0 01/28/2022 Body mass index 40.0-44.9, adult ([facility]) 01/28 Chest pain 01/28/2022 Assessment & Plan [...] prn. Assessment & Plan (05/31/2021 2:39 PM QUILL CLEANING MACHINE OPERATOR): -PVR was low today at 15mL. -Reports only feeling this when she believes she has UTI. -No current symptoms. Acute cystitis without hematuria 05/31/2021 Assessment & Plan (05/31/2021 2:40 PM QUILL CLEANING MACHINE OPERATOR): -Most recent UA done by PCP showing [...] 04/26/2021 Assessment & Plan (04/26/2021 10:11 AM QUILL CLEANING MACHINE OPERATOR): Reviewed CXR. Order Chest CT. Dysuria 04/25/2021 Assessment & Plan (11/29/2021 2:44 PM CDT): -Has increased water intake. -No issues with dysuria or UTI-like symptoms since initial office visit. PLAN: -Continue with adequate water intake. -Reduce soda intake. Assessment & Plan (04/26/2021 10:07 AM QUILL CLEANING MACHINE OPERATOR): Order UA. reviewed urinary hygiene. Treat with macrobid and await culture. Diarrhea of infectious origin 01/29/2021 Assessment & Plan (01/29/2021 9:48 AM CDT): Likely C.dif and antibiotic related. Start metronidazole. Cellulitis of buttock 01/29/2021 Assessment & Plan (01/29/2021 9:51 AM CDT): Cellulitis improved with antibiotics. Rash 01/28/2021 Screen for colon cancer 01/02/2021 Overview (01/02/2021): Added automatically from request for surgery [id number] Chronic right shoulder pain 10/05/2018 Assessment & Plan (10/05/2018 10:41 AM CDT): Reviewed ROM exercises for scapular pain. Class 3 severe obesity due t o excess calories with serious comorbidity and body mass index (BMI) of 40.0 to 44.9 in adult 04/21/2018 Assessment & Plan (04/26/2021 10:18 AM QUILL CLEANING MACHINE OPERATOR): BMI is more than 40, reviewed calorie restrictions. Assessment & Plan (04/21/2018 8:56 AM QUILL CLEANING MACHINE OPERATOR): BMI is more than 40, reviewed calorie restrictions. Diastolic heart failure secondary to hypertensio n ([facility]) 10/03/2017 Assessment & Plan (04/21/2018 6:47 AM QUILL CLEANING MACHINE OPERATOR): Hypertension is controlled. Continue current regimen.CHF compensated. [...] 04/04/2017 Assessment & Plan (05/21/2024 9:13 AM QUILL CLEANING MACHINE OPERATOR): Reviewed recent HgbA1C was improved to 6.2. [...] rosuvastatin. Assessment & Plan (07/09/2023 5:51 AM QUILL CLEANING MACHINE OPERATOR): Her diabetes is uncontrolled;I advised her to follow with Endocrinology. Continue Januvia and glimepiride. Diabetes is complicated by hyperlipidemia;I advised a statin. Assessment & Plan (01/02/2023 3:37 PM CDT): Her diabetes is uncontrolled;I advised her to follow with Endocrinology. Continue Januvia and resume glimepiride. Diabetes is complicated by hyperlipidemia;I advised a statin. Assessment & Plan (05/31/2022 6:18 AM QUILL CLEANING MACHINE OPERATOR): She does not have an appointment with [...] control. Assessment & Plan (04/25/2021 11:55 AM QUILL CLEANING MACHINE OPERATOR): Reviewed HgbA1C was elevated at 7.5 on 11/02/20. Diabetes is not controlled. Continue current regimen and monitor diet. Reviewed dietary goals for elevated triglycerides,. Assessment & Plan (10/05/2018 6:41 AM CDT): Reviewed proper diet for elevated triglycerides. Assessment & Plan (04/21/2018 6:48 AM QUILL CLEANING MACHINE OPERATOR): Reviewed proper diet. Continue diet for elevated triglycerides. Assessment & Plan (10/03/2017 6:33 AM CDT): Reviewed proper diet for hyperlipidemia. Continue Diabetic regimen. Advised annual eye exam. Assessment & Plan (04/04/2017 9:27 AM QUILL CLEANING MACHINE OPERATOR): Reviewed proper diet. She will consider statin therapy. Morbid obesity 04/04/2017 Assessment & Plan (04/04/2017 9:20 AM QUILL CLEANING MACHINE OPERATOR): BMI is more than 40. Encouraged weight loss. Hypertension 10/07/2013 Assessment & Plan (05/21/2024 5:41 AM QUILL CLEANING MACHINE OPERATOR): Hypertension is controlled. Continue current regimen. Assessment & Plan (01/16/2024 5:35 AM CDT): Hypertension is controlled. Continue current regimen. Assessment & Plan (11/13/2023 6:15 AM CDT): Hypertension is controlled. Continue current regimen. Assessment & Plan (07/09/2023 5:51 AM QUILL CLEANING MACHINE OPERATOR): Hypertension is controlled. Continue current regimen. Assessment & Plan (05/31/2022 6:17 AM QUILL CLEANING MACHINE OPERATOR): Hypertension is controlled. Continue current regimen. Assessment [...] 04/06/21. Assessment & Plan (04/25/2021 11:54 AM QUILL CLEANING MACHINE OPERATOR): Hypertension is controlled. Continue current regimen. Assessment & Plan (10/05/2018 6:41 AM CDT): Hypertension is controlled. Continue current regimen. Assessment & Plan (04/04/2017 6:58 AM QUILL CLEANING MACHINE OPERATOR): Hypertension is controlled. Continue current regimen. Type 2 diabetes mellitus wit h hyperglycemia, without long-term current use of insulin ([facility]) 10/07/2013 Assessment & Plan (01/28/2021 9:10 AM CDT): Reviewed HgbA1C was elevated at 7.5 on 11/02/20. Diabetes is not controlled. Continue current regimen and monitor diet. Assessment & Plan (10/05/2018 6:42 AM CDT): Continue glimepiride. Continue diet for elevated triglycerides. Assessment & Plan (04/21/2018 6:50 AM QUILL CLEANING MACHINE OPERATOR): Last Hgba1C was elevated. Continue current regimen. Assessment & Plan (04/04/2017 6:59 AM QUILL CLEANING MACHINE OPERATOR): Continue current regimen. Advised annual eye exam. Reviewed proper diet. Continue statin therapy. Generalized anxiety disorder 09/18/2013 Overview (08/07/2016): GENERALIZED ANXIETY DIS Assessment & Plan (01/01/2023 8:12 AM CDT): Continue lorazepam as needed. She declines a SSRI. Hypothyroidism 09/18/2013 Overview (08/09/2016): HYPOTHYROIDISM NOS Assessment & Plan (05/21/2024 5:41 AM QUILL CLEANING MACHINE OPERATOR): Continue levothyroxine. Assessment & Plan (03/02/2024 6:36 AM CDT): Continue levothyroxine. Assessment & Plan (01/16/2024 5:35 AM CDT): Continue levothyroxine. Order labs. Assessment & Plan (11/13/2023 6:15 AM CDT): Continue levothyroxine. Assessment & Plan (07/09/2023 5:51 AM QUILL CLEANING MACHINE OPERATOR): Continue levothyroxine and Endocrinology care. Assessment & Plan (01/01/2023 8:12 AM CDT): Continue levothyroxine and Endocrinology care. Assessment & Plan (05/31/2022 6:17 AM QUILL CLEANING MACHINE OPERATOR): Continue levothyroxine and Endocrinology care. Assessment & Plan (01/28/2022 7:04 AM CDT): Continue levothyroxine and Endocrinology care. Assessment & Plan (09/13/2021 9:06 AM CDT): Continue levothyroxine. Assessment & Plan (07/26/2021 9:41 AM CDT): Continue levothyroxine. Order TSH. Assessment & Plan (04/25/2021 11:54 AM QUILL CLEANING MACHINE OPERATOR): Reviewed normal TSH 11/02/20. Continue levothyroxine. Assessment & Plan (01/28/2021 9:09 AM CDT): Reviewed normal TSH 11/02/20. Continue levothyroxine. Assessment & Plan (10/05/2018 6:42 AM CDT): Continue levothyroxine. Assessment & Plan (04/21/2018 6:49 AM QUILL CLEANING MACHINE OPERATOR): Continue levothyroxine. Recent TSH at goal. Assessment & Plan (10/03/2017 6:33 AM CDT): Problem controlled. Continue levothyroxine. Assessment & Plan (04/04/2017 6:59 AM QUILL CLEANING MACHINE OPERATOR): Continue levothyroxine. Gastroesophageal reflux disease 09/18/2013 Overview [...] Type Department Care Team Description 06/21/[address] [place] [id number] Lobito Cleaning MD Medication Request 05/21/2024 10:00 AM QUILL CLEANING MACHINE OPERATOR Office Visit [place] [id number] [facility] [address] [place] [address] Lobito Cleaning MD Primary hypertension (Primary Dx); [...] on file Legal Sex Female 2:19 PM QUILL CLEANING MACHINE OPERATOR Gender Identity Not on file Sexual Orientation Not on file Obstetrics History Last Filed Vital Signs Vital Sign Reading Time Taken Comments Blood Pressure 120/62 05/21/2024 8:57 AM QUILL CLEANING MACHINE OPERATOR Pulse 74 05/21/2024 8:57 AM QUILL CLEANING MACHINE OPERATOR Temperature 36.1 C (97 F) 05/21/2024 8:57 AM QUILL CLEANING MACHINE OPERATOR Respiratory Rate 18 05/21/2024 8:57 AM QUILL CLEANING MACHINE OPERATOR Oxygen Saturation 95% 05/21/2024 8:57 AM QUILL CLEANING MACHINE OPERATOR Inhaled Oxygen Concentration - - Weight 101.6 kg (224 lb) 05/21/2024 8:57 AM QUILL CLEANING MACHINE OPERATOR Height 165.1 cm (5' 5 ) 05/21/2024 8:57 AM QUILL CLEANING MACHINE OPERATOR Body Mass Index 37.28 05/21/2024 8:57 AM QUILL CLEANING MACHINE OPERATOR Plan of Treatment Scheduled Procedures Name Priority [...] HEMOGLOBIN A1C Routine 05/21/2024 9 :08 AM QUILL CLEANING MACHINE OPERATOR Hyperlipidemia associated with type 2 diabetes mellitus [...] * POCT hemoglobin A1c (05/21/2024 9:08 AM QUILL CLEANING MACHINE OPERATOR) Hemoglobin A1C, POC 6.2 4.0 - 5.6 % Blood 05/21/2024 9:08 AM QUILL CLEANING MACHINE OPERATOR Lobito Cleaning MD POINT OF CARE TEST [...] ORDERABLES Final Re sult Performing Organization Address [facility] de Phone Number [facility] [place] [address] * Albumin Creatinine Ratio, Urine (01/16/2024 8:49 AM CDT) Albumin Ur <12.0 mg/L Comment: Interpretive Data No reference range established. Current interpretive data was last revised 2018. Creatinine Ur 28.6 mg/dL [facility] Comment: Interpretive Data No reference range established. Current interpretive data was last revised 2018. Albumin Creatinine Ratio, Ur See Comment 1 - 29 mg/g [facility] Comment:Unable to calculate Urine 01/16/2024 8:49 AM CDT 01/16/2024 12:29 PM CDT Lobito Cleaning MD LAB URINE ORDERABLES Final Re sult Performing Organization Address [facility] de Phone Number [facility] [place] [address] * (ABNORMAL) Lipid panel (01/16/2024 8:49 AM [...] revised on 2017. Triglycerides 186(H) <=149 mg/dL [facility] Comment: Interpretive Data Ages < or [...] revised on 2017. HDL 33(L) >=40 mg/dL [facility] Comment: Interpretive Data Ages < or [...] on 2017. LDL, calculated 135(H) <=129 mg/dL [facility] Comment: Interpretive Data Ages < or [...] revised on 2017. Chol/HDL ratio 6 [facility] Blood 01/16/2024 8:49 AM CDT 01/16/2024 12:29 PM CDT Lobito Cleaning MD LAB BLOOD ORDERABLES Final Re sult [facility] Department [place] [address] * Diagnostic Mammogram Bilateral W Sheila (10/14/2022 [...] FOR LIFE MEDICARE FOR LIFE Care Teams Engine Specialist Relationship Specialty Start Date End Date Lobito Cleaning MD [id number] [facility] [address] [place] [address] PCP - General Internal Medicine 11/02/20
--- OUTSIDE RECORDS SUMMARY | 2024-06-21 14:25 | XMS_ITS | Continuity of Care Document ---
Author Name [facility] Organization [facility] Care Team Providers Care Petrophysicist Name Role Phone [facility] Unavailable Unavailable Problems Combined list of problems [...] ORAL, AUROBINDO PHARM, 30 ea. BOTTLE Active [id number] 4 2023 4 Pharmac y Data Transac tion Service Facilit y AZITHROMYCI N (azithromyc in), 250 MG, TABLET, ORAL, TAGI PHARMA, 30 ea. BOTTLE Active [id number] 4 2023 4 Pharmac y Data Transac tion Service Facilit y AZITHROMYCI N (azithromyc in), 250 MG, TABLET, ORAL, TAGI PHARMA, 30 ea. BOTTLE Active [id number] 4 2023 4 Pharmac y Data Transac tion Service Facilit y azithromyci n 250 mg oral tablet 0 total refill(s ) Ordered No Facilit y Access CETIRIZINE HCL (cetirizine HCl), 10 MG, TABLET, ORAL, 'S LAB, 500 ea. BOTTLE Active [id number] 2023 30 Pharmac y Data Transac [...] or use exactly as directed . 01/02/2024 [id number] 2022 30 [facility] Kyle HYLTON ([facility] glimepiride 4 mg oral tablet glimepir martha [...] or use exactly as directed . 01/02/2024 [id number] 2022 90 [facility] Kyle HYLTON ([facility] LORAZEPAM (lorazepam) , 1 MG, TABLET, ORAL, AUROBINDO PHARM, 500 ea. BOTTLE Active [id number] 2023 90 Pharmac y Data Transac tion Service Facilit y LORAZEPAM (lorazepam) , 1 MG, TABLET, ORAL, AUROBINDO PHARM, 500 ea. BOTTLE Active [id number] 2023 90 Pharmac y Data Transac tion Service Facilit y LORAZEPAM (lorazepam) , 1 MG, TABLET, ORAL, AUROBINDO PHARM, 500 ea. BOTTLE Active [id number] 2023 90 Pharmac y Data Transac tion Service Facilit y LORAZEPAM (lorazepam) , 1 MG, TABLET, ORAL, TEVA [place], 500 ea. BOTTLE Cancele d [id number] : 2023 0 Pharmac y Data Transac tion Service Facilit y LORAZEPAM (lorazepam) , 1 MG, TABLET, ORAL, TEVA [place], 500 ea. BOTTLE Cancele d [id number] : 2022 0 Pharmac y Data Transac tion Service Facilit y LORAZEPAM (lorazepam) , 1 MG, TABLET, ORAL, TEVA [place], 500 ea. BOTTLE Active [id number] 2022 90 Pharmac y Data Transac tion Service Facilit y LORazepam 1 mg oral tablet LORazepa m 1 mg oral tablet Start Date: 04/25/20 Status: Ordered Ordered No Facilit y Access METOPROLOL SUCCINATE (metoprolol succinate), 25 MG, TAB ER 24H, ORAL, ACTAVIS/TEV A, 100 ea. BOTTLE Active [id number] 2023 90 Pharmac y Data Transac [...] ORAL, ALEMBIC PHARMAC, 50 ea. BOTTLE Active [id number] 2023 14 Pharmac y Data Transac [...] LABS., 30 ea. BLIST PACK Cancele d [id number] : 2023 0 Pharmac y Data Transac tion Service Facilit y PAXLOVID (EUA) (nirmatrelv ir/ritonavi r), 300-100 MG, TAB DS PK, ORAL, PFIZER LABS., 30 ea. BLIST PACK Cancele d [id number] : 2022 0 Pharmac y Data Transac tion Service Facilit y rosuvastati n 10 mg tablet 10 mg, Oral, Daily, # 30 EA, 11 total refill(s ), Hard Stop Oral (given by mouth) Complet ed 01/02/2024 30.0 Ambulat ory Pharmac y SITagliptin (U/D) 100 MG ORAL TAB Do not drink alcohol. 01/02/2024 [id number] 2022 90 [facility] Kyle HYLTON ([facility] SITagliptin 100 mg oral tablet TAKE 1 [...] TARO PHARM [place], 30 g TUBE Active [id number] 2023 30 Pharmac y Data Transac [...] CODEINE Drug allergy (disorder) Unknown active [address] [place] [address] Kyle HYLTON ([facility] codeine Propensity to adverse reactions to substance [...] ADM Date DC Date Status Disposition Source [facility](Al lergy Cl WR) OUTPATIENT [id number] flu shot/DEMETRIUS Munroe 04/15 Released w/o Limitations [facility]( Allergy Cl WR) [address] [place] [address] Kyle HYLTON ([facility]War rior Op Med Cln Tm A Ad) OUTPATIENT [id number] chest pain on Apr ZARIA ENRIQUEZ 04/[address] [place] [address] Kyle HYLTON [facility]W arrior Op Med Cln Tm A Ad) [employer] [place] [employer](Kvng López [facility] Team B) OUTPATIENT [id number] Notes Entered by: MALENA FERRERA 31 Dec 2019 1049 ------- ------- ------- ------- -- Rapid manuel e DIANNA BOOGIE Dominique 12/30 Released w/o Limitations [employer] [place] [employer] ([facility] Team B) Procedures Combined list of: 1) Procedures from Department of Veterans Affairs facilities going back [facility], not all VA non-surgical procedures are included; 2) All procedures from the Department of Defense facilities. Procedure Procedure Type Code Date Perfomer Comments [facility] e INFLUENZA VIRUS VACCINE, TRIVALENT (IIV3), SPLIT VIRUS, 0.5 ML DOSAGE, FOR INTRAMUSCULAR USE 04/15/20 06 [facility] INJECTION, KETOROLAC TROMETHAMINE, PER 15 MG 05/04/20 05 [facility] INFLUENZA VIRUS VACCINE, TRIVALENT (IIV3), SPLIT VIRUS, 0.5 ML DOSAGE, FOR INTRAMUSCULAR USE 03/27/20 05 [facility] Immunization Administration By Injection, One Vaccine Immunization Administration By Injection, One Vaccine [id number] 04/15/20 06 [facility] Influenza Split Virus Vaccine 0.5mL Dosage Intramuscular 04/15/20 06 [facility] No data available for this section Ambulato ry Pharmacy Social History Combined list of available smoking, tobacco, and other social history from Department of Defense and Veterans Affairs facilities. Social History Type Response Date Comment [facility] e Female 06/16/2020 Ambulatory Pha rmacy This [...] of Defense and Veterans Affairs (VA).VA Functional [place] Measurement (FIM) Scale: 1 = Total Assistance (Subject = 0% +), 2 = Maximal Assistance (Subject = 25% +), 3 = Moderate Assistance (Subject = 50% +), 4 = Minimal Assistance (Subject = 75% +), 5 = Supervision, 6 = Modified [place] (Device), 7 = Complete [place] (Timely, Safely). Assessment Date/Time Source Assessment Type Assessment Skill Assessment Score Assessment Details No data available for this section
--- OUTSIDE RECORDS SUMMARY | 2024-06-21 14:25 | XMS_ITS | Clinical Summary ---
Author Organization [facility] Address [address] [place] [id number] Care Team Providers Care Patent Prosecution Attorney Name Role Phone Unavailable Primary Care Provider [...]
--- OUTSIDE RECORDS SUMMARY | 2024-06-21 14:25 | XMS_ITS | Referral Summary ---
Author Organization [facility] Address [address] [place] [address] Care Team Providers Care Medical Intern Name Role Phone Lobito Cleaning MD Primary Care Provider [phone] Encounters Date Type Department Care Team Description 06/21/2024 Telephone [facility] [address] [facility] [address] [place] [phone] Lobito Cleaning MD Medication Request 05/21/2024 10:00 AM NURSE PRIVATE DUTY Office Visit [facility] [address] [facility] [address] [place] [phone] Lobito Cleaning MD Primary hypertension (Primary [...] hyperglycemia, without long-term current use of insulin ([facility]) 100 each by other route once a week Use for Trulicity injection weekly. 100 each 4 Active blood-glucose meter kitIndications: Diabetes mellitus due to underlying condition with hyperglycemia, without long-term current use of insulin ([facility]) Use daily or as directed for monitoring of diabetes 1 kit 4 Active blood glucose diagnostic stripIndication s:Diabetes mellitus due to underlying condition with hyperglycemia, without long-term current use of insulin ([facility]) 1 each by other route 2 (two) times a day before lunch and dinner 180 each 4 09/05/19 25 Active lancets 31 gauge miscIndications :Diabetes mellitus due to underlying condition with hyperglycemia, without long-term current use of insulin ([facility]) 1 strip 2 (two) times a day [...] leg Assessment & Plan (07/09/2023 8:54 AM NURSE PRIVATE DUTY): Symptoms are improved. Complete antibiotics and continue steroid cream. Palpitations 07/09/2023 Assessment & Plan (05/21/2024 9:21 AM NURSE PRIVATE DUTY): Reorder holter monitor. Reviewed normal TSH. Assessment & Plan (07/09/2023 8:58 AM NURSE PRIVATE DUTY): Order monitor. Await TSH. She is intolerant [...] prn. Assessment & Plan (05/31/2021 2:39 PM NURSE PRIVATE DUTY): -PVR was low today at 15mL. -Reports only feeling this when she believes she has UTI. -No current symptoms. Acute cystitis without hematuria 05/31/2021 Assessment & Plan (05/31/2021 2:40 PM NURSE PRIVATE DUTY): -Most recent UA done by PCP showing [...] 04/26/2021 Assessment & Plan (04/26/2021 10:11 AM NURSE PRIVATE DUTY): Reviewed CXR. Order Chest CT. Dysuria 04/25/2021 Assessment & Plan (11/29/2021 2:44 PM CDT): -Has increased water intake. -No issues with dysuria or UTI-like symptoms since initial office visit. PLAN: -Continue with adequate water intake. -Reduce soda intake. Assessment & Plan (04/26/2021 10:07 AM NURSE PRIVATE DUTY): Order UA. reviewed urinary hygiene. Treat with macrobid and await culture. Diarrhea of infectious origin 01/29/2021 Assessment & Plan (01/29/2021 9:48 AM CDT): Likely C.dif and antibiotic related. Start metronidazole. Cellulitis of buttock 01/29/2021 Assessment & Plan (01/29/2021 9:51 AM CDT): Cellulitis improved with antibiotics. Rash 01/28/2021 Screen for colon cancer 01/02/2021 Overview (01/02/2021): Added automatically from request for surgery [id number] Chronic right shoulder pain 10/05/2018 Assessment & Plan (10/05/2018 10:41 AM CDT): Reviewed ROM exercises for scapular pain. Class 3 severe obesity due t o excess calories with serious comorbidity and body mass index (BMI) of 40.0 to 44.9 in adult 04/21/2018 Assessment & Plan (04/26/2021 10:18 AM NURSE PRIVATE DUTY): BMI is more than 40, reviewed calorie restrictions. Assessment & Plan (04/21/2018 8:56 AM NURSE PRIVATE DUTY): BMI is more than 40, reviewed calorie restrictions. Diastolic heart failure secondary to hypertensio n ([facility]) 10/03/2017 Assessment & Plan (04/21/2018 6:47 AM NURSE PRIVATE DUTY): Hypertension is controlled. Continue current regimen.CHF compensated. [...] 04/04/2017 Assessment & Plan (05/21/2024 9:13 AM NURSE PRIVATE DUTY): Reviewed recent HgbA1C was improved to 6.2. [...] rosuvastatin. Assessment & Plan (07/09/2023 5:51 AM NURSE PRIVATE DUTY): Her diabetes is uncontrolled;I advised her to follow with Endocrinology. Continue Januvia and glimepiride. Diabetes is complicated by hyperlipidemia;I advised a statin. Assessment & Plan (01/02/2023 3:37 PM CDT): Her diabetes is uncontrolled;I advised her to follow with Endocrinology. Continue Januvia and resume glimepiride. Diabetes is complicated by hyperlipidemia;I advised a statin. Assessment & Plan (05/31/2022 6:18 AM NURSE PRIVATE DUTY): She does not have an appointment with [...] control. Assessment & Plan (04/25/2021 11:55 AM NURSE PRIVATE DUTY): Reviewed HgbA1C was elevated at 7.5 on 11/02/20. Diabetes is not controlled. Continue current regimen and monitor diet. Reviewed dietary goals for elevated triglycerides,. Assessment & Plan (10/05/2018 6:41 AM CDT): Reviewed proper diet for elevated triglycerides. Assessment & Plan (04/21/2018 6:48 AM NURSE PRIVATE DUTY): Reviewed proper diet. Continue diet for elevated triglycerides. Assessment & Plan (10/03/2017 6:33 AM CDT): Reviewed proper diet for hyperlipidemia. Continue Diabetic regimen. Advised annual eye exam. Assessment & Plan (04/04/2017 9:27 AM NURSE PRIVATE DUTY): Reviewed proper diet. She will consider statin therapy. Morbid obesity 04/04/2017 Assessment & Plan (04/04/2017 9:20 AM NURSE PRIVATE DUTY): BMI is more than 40. Encouraged weight loss. Hypertension 10/07/2013 Assessment & Plan (05/21/2024 5:41 AM NURSE PRIVATE DUTY): Hypertension is controlled. Continue current regimen. Assessment & Plan (01/16/2024 5:35 AM CDT): Hypertension is controlled. Continue current regimen. Assessment & Plan (11/13/2023 6:15 AM CDT): Hypertension is controlled. Continue current regimen. Assessment & Plan (07/09/2023 5:51 AM NURSE PRIVATE DUTY): Hypertension is controlled. Continue current regimen. Assessment & Plan (05/31/2022 6:17 AM NURSE PRIVATE DUTY): Hypertension is controlled. Continue current regimen. Assessment [...] 04/06/21. Assessment & Plan (04/25/2021 11:54 AM NURSE PRIVATE DUTY): Hypertension is controlled. Continue current regimen. Assessment & Plan (10/05/2018 6:41 AM CDT): Hypertension is controlled. Continue current regimen. Assessment & Plan (04/04/2017 6:58 AM NURSE PRIVATE DUTY): Hypertension is controlled. Continue current regimen. Type 2 diabetes mellitus wit h hyperglycemia, without long-term current use of insulin ([facility]) 10/07/2013 Assessment & Plan (01/28/2021 9:10 AM CDT): Reviewed HgbA1C was elevated at 7.5 on 11/02/20. Diabetes is not controlled. Continue current regimen and monitor diet. Assessment & Plan (10/05/2018 6:42 AM CDT): Continue glimepiride. Continue diet for elevated triglycerides. Assessment & Plan (04/21/2018 6:50 AM NURSE PRIVATE DUTY): Last Hgba1C was elevated. Continue current regimen. Assessment & Plan (04/04/2017 6:59 AM NURSE PRIVATE DUTY): Continue current regimen. Advised annual eye exam. Reviewed proper diet. Continue statin therapy. Generalized anxiety disorder 09/18/2013 Overview (08/07/2016): GENERALIZED ANXIETY DIS Assessment & Plan (01/01/2023 8:12 AM CDT): Continue lorazepam as needed. She declines a SSRI. Hypothyroidism 09/18/2013 Overview (08/09/2016): HYPOTHYROIDISM NOS Assessment & Plan (05/21/2024 5:41 AM NURSE PRIVATE DUTY): Continue levothyroxine. Assessment & Plan (03/02/2024 6:36 AM CDT): Continue levothyroxine. Assessment & Plan (01/16/2024 5:35 AM CDT): Continue levothyroxine. Order labs. Assessment & Plan (11/13/2023 6:15 AM CDT): Continue levothyroxine. Assessment & Plan (07/09/2023 5:51 AM NURSE PRIVATE DUTY): Continue levothyroxine and Endocrinology care. Assessment & Plan (01/01/2023 8:12 AM CDT): Continue levothyroxine and Endocrinology care. Assessment & Plan (05/31/2022 6:17 AM NURSE PRIVATE DUTY): Continue levothyroxine and Endocrinology care. Assessment & Plan (01/28/2022 7:04 AM CDT): Continue levothyroxine and Endocrinology care. Assessment & Plan (09/13/2021 9:06 AM CDT): Continue levothyroxine. Assessment & Plan (07/26/2021 9:41 AM CDT): Continue levothyroxine. Order TSH. Assessment & Plan (04/25/2021 11:54 AM NURSE PRIVATE DUTY): Reviewed normal TSH 11/02/20. Continue levothyroxine. Assessment & Plan (01/28/2021 9:09 AM CDT): Reviewed normal TSH 11/02/20. Continue levothyroxine. Assessment & Plan (10/05/2018 6:42 AM CDT): Continue levothyroxine. Assessment & Plan (04/21/2018 6:49 AM NURSE PRIVATE DUTY): Continue levothyroxine. Recent TSH at goal. Assessment & Plan (10/03/2017 6:33 AM CDT): Problem controlled. Continue levothyroxine. Assessment & Plan (04/04/2017 6:59 AM NURSE PRIVATE DUTY): Continue levothyroxine. Gastroesophageal reflux disease 09/18/2013 Overview [...] on file Legal Sex Female 2:19 PM NURSE PRIVATE DUTY Gender Identity Not on file Sexual Orientation Not on file Last Filed Vital Signs Vital Sign Reading Time Taken Comments Blood Pressure 120/62 05/21/2024 8:57 AM NURSE PRIVATE DUTY Pulse 74 05/21/2024 8:57 AM NURSE PRIVATE DUTY Temperature 36.1 C (97 F) 05/21/2024 8:57 AM NURSE PRIVATE DUTY Respiratory Rate 18 05/21/2024 8:57 AM NURSE PRIVATE DUTY Oxygen Saturation 95% 05/21/2024 8:57 AM NURSE PRIVATE DUTY Inhaled Oxygen Concentration - - Weight 101.6 kg (224 lb) 05/21/2024 8:57 AM NURSE PRIVATE DUTY Height 165.1 cm (5' 5 ) 05/21/2024 8:57 AM NURSE PRIVATE DUTY Body Mass Index 37.28 05/21/2024 8:57 AM NURSE PRIVATE DUTY Plan of Treatment Scheduled Procedures Name Priority Associated Diagnoses Date/Ti me ESOPHAGOGASTRODUODENOSCOPY Open Access Dysphagia, unspecified type COLONOSCOPY Screen for colon cancer Procedures Procedure Name Priority Date/Time Associated Diagnosis Comments POCT HEMOGLOBIN A1C Routine 05/21/2024 9 :08 AM NURSE PRIVATE DUTY Hyperlipidemia associated with type 2 diabetes mellitus [...] * POCT hemoglobin A1c (05/21/2024 9:08 AM NURSE PRIVATE DUTY) Hemoglobin A1C, POC 6.2 4.0 - 5.6 % Blood 05/21/2024 9:08 AM NURSE PRIVATE DUTY Lobito Cleaning MD POINT OF CARE TEST [...] LAB BLOOD ORDERABLES Final Re sult [facility] [place] [address] * Albumin Creatinine Ratio, Urine (01/16/2024 8:49 AM CDT) Albumin Ur <12.0 mg/L Comment: Interpretive Data No reference range established. Current interpretive data was last revised 2018. Creatinine Ur 28.6 mg/dL [facility] Comment: Interpretive Data No reference range established. Current interpretive data was last revised 2018. Albumin Creatinine Ratio, Ur See Comment 1 - 29 mg/g [facility] Comment:Unable to calculate Urine 01/16/2024 8:49 AM CDT 01/16/2024 12:29 PM CDT us Lobito Cleaning MD LAB URINE ORDERABLES Final Re sult [facility] [place] [address] * (ABNORMAL) Lipid panel (01/16/2024 8:49 AM [...] on 2017. HDL 33(L) >=40 mg/dL [facility] Comment: Interpretive Data Ages < or = [...] 2017. LDL, calculated 135(H) <=129 mg/dL [facility] Comment: Interpretive Data Ages < or = [...] on 2023. Non-HDL Cholesterol 169 mg/dL [facility] Comment: Interpretive Data Ages < or = [...] last revised on 2017. Chol/HDL ratio [facility] Blood 01/16/2024 8:49 AM CDT 01/16/2024 12:29 PM CDT us Lobito Cleaning MD LAB BLOOD ORDERABLES Final Re sult [facility] [place] [address] * Diagnostic Mammogram Bilateral W Sheila (10/14/2022 [...] MEDICARE FOR LIFE MEDICARE FOR LIFE MEDICARE [facility] Address: [facility] [address] [place] [address] FOR LIFE Care Teams Medical Intern Relationship Specialty Start Date End Date Lobito Cleaning MD [address] [facility] [address] [place] [address] PCP - General Internal Medicine 11/02/20
== END 2024-06-21 12:42 | disposition home or self-care (01) ==
PROVIDERS: Emergency Provider Emergency Medicine; PCP Internal Medicine
DX: J10.1 Influenza due to other identified influenza virus with other respiratory manifestations (principal); Z20.822 Contact with and (suspected) exposure to COVID-19; I10 Essential (primary) hypertension; E03.9 Hypothyroidism, unspecified; E11.9 Type 2 diabetes mellitus without complications; F17.210 Nicotine dependence, cigarettes, uncomplicated; R94.31 Abnormal electrocardiogram [ECG] [EKG]
CPT/HCPCS: 71046; 87637; 93005; 99283

== ENCOUNTER 2024-06-22 19:28 | Emergency (ER) | payer MEDICARE, OTHER, SELFPAY ==
[2024-06-22] VITALS (11 sets, daily range): BP systolic 106–133; BP diastolic 59–69; PULSE 58–85; RESP 17–31; TEMP 36.8; O2SAT 96–99
--- NOTE | ~2024-06-22 | XR_ITS ---
EXAMINATION: XR chest 1V portable Exam Date/Time: 06/22/2024 20:25 CHARTER PILOT HISTORY: Wheezing, Flu A Comparison: 06/21/2024. RESULT: Lines, tubes, and devices: Cholecystectomy clips. Lungs and pleura: Clear. Calcified left lower lung granuloma. Cardiomediastinal silhouette: Stable. Other: No acute osseous or upper abdominal finding. IMPRESSION: No acute cardiopulmonary process. Reviewed, dictated and finalized at location [facility]. [facility]
--- OUTSIDE RECORDS SUMMARY | 2024-06-22 19:31 | XMS_ITS | Continuity of Care Document ---
Author Name [facility] Organization [facility] Care Team Providers Care Bench Inspector Name Role Phone [facility] Unavailable Unavailable Problems Combined list of problems [...] ORAL, AUROBINDO PHARM, 30 ea. BOTTLE Active [id number] 2023 4 Pharmac y Data Transac tion Service Facilit y AZITHROMYCI N (azithromyc in), 250 MG, TABLET, ORAL, TAGI PHARMA, 30 ea. BOTTLE Active [id number] 2023 4 Pharmac y Data Transac tion Service Facilit y AZITHROMYCI N (azithromyc in), 250 MG, TABLET, ORAL, TAGI PHARMA, 30 ea. BOTTLE Active [id number] 4 2023 4 Pharmac y Data Transac tion Service Facilit y azithromyci n 250 mg oral tablet 0 total refill(s ) Ordered No Facilit y Access CETIRIZINE HCL (cetirizine HCl), 10 MG, TABLET, ORAL, 'S LAB, 500 ea. BOTTLE Active [id number] 2023 30 Pharmac y Data Transac [...] or use exactly as directed . 01/02/2024 [id number] 3 2022 30 [facility] Kyle HYLTON ([facility]) glimepiride 4 mg oral tablet glimepir martha [...] or use exactly as directed . 01/02/2024 [id number] 3 2022 90 [facility] Kyle [facility]YLTON ([facility]) LORAZEPAM (lorazepam) , 1 MG, TABLET, ORAL, AUROBINDO PHARM, 500 ea. BOTTLE Active [id number] 2023 90 Pharmac y Data Transac tion Service Facilit y LORAZEPAM (lorazepam) , 1 MG, TABLET, ORAL, AUROBINDO PHARM, 500 ea. BOTTLE Active [id number] 2023 90 Pharmac y Data Transac tion Service Facilit y LORAZEPAM (lorazepam) , 1 MG, TABLET, ORAL, AUROBINDO PHARM, 500 ea. BOTTLE Active [id number] 2023 90 Pharmac y Data Transac tion Service Facilit y LORAZEPAM (lorazepam) , 1 MG, TABLET, ORAL, TEVA [place], 500 ea. BOTTLE Cancele d [id number] : 2023 0 Pharmac y Data Transac tion Service Facilit y LORAZEPAM (lorazepam) , 1 MG, TABLET, ORAL, TEVA [place], 500 ea. BOTTLE Cancele d [id number] : 2022 0 Pharmac y Data Transac tion Service Facilit y LORAZEPAM (lorazepam) , 1 MG, TABLET, ORAL, TEVA [place], 500 ea. BOTTLE Active [id number] 2022 90 Pharmac y Data Transac tion Service Facilit y LORazepam 1 mg oral tablet LORazepa m 1 mg oral tablet Start Date: 04/25/20 Status: Ordered Ordered No Facilit y Access METOPROLOL SUCCINATE (metoprolol succinate), 25 MG, TAB ER 24H, ORAL, ACTAVIS/TEV A, 100 ea. BOTTLE Active [id number] 4 2023 90 Pharmac y Data Transac [...] ORAL, ALEMBIC PHARMAC, 50 ea. BOTTLE Active [id number] 2023 14 Pharmac y Data Transac [...] LABS., 30 ea. BLIST PACK Cancele d [id number] : 2023 0 Pharmac y Data Transac tion Service Facilit y PAXLOVID (EUA) (nirmatrelv ir/ritonavi r), 300-100 MG, TAB DS PK, ORAL, PFIZER LABS., 30 ea. BLIST PACK Cancele d [id number] : 2022 0 Pharmac y Data Transac tion Service Facilit y rosuvastati n 10 mg tablet 10 mg, Oral, Daily, # 30 EA, 11 total refill(s ), Hard Stop Oral (given by mouth) Complet ed 01/02/2024 30.0 Ambulat ory Pharmac y SITagliptin (U/D) 100 MG ORAL TAB Do not drink alcohol. 01/02/2024 [id number] 2022 90 [employer] Kyle HYLTON ([facility]) SITagliptin 100 mg oral tablet TAKE 1 [...] TARO PHARM [place], 30 g TUBE Active [id number] 2023 30 Pharmac y Data Transac [...] CODEINE Drug allergy (disorder) Unknown active [address] [place] [address] Kyle HYLTON ([facility]) codeine Propensity to adverse reactions to substance [...] ADM Date DC Date Status Disposition Source [facility](Al lergy Cl WR) OUTPATIENT [id number] flu shot/DEMETRIUS Munroe 04/15 Released w/o Limitations [facility]( Allergy Cl WR) [address] [place] [address] Kyle HYLTON ([facility])(War rior Op Med Cln Tm A Ad) OUTPATIENT [id number] chest pain on Apr ZARIA ENRIQUEZ 04/[address] [place] [address] Kyle HYLTON [facility]W arrior Op Med Cln Tm A Ad) [employer], [place] [employer](Kvng López [facility] Team B) OUTPATIENT [id number] Notes Entered by: MALENA FERRERA 31 Dec 2019 1049 ------- ------- ------- ------- -- Rapid manuel e CHUYITADIANNA LUNA Dominique 12/30 Released w/o Limitations [facility] [place] [employer] ([facility] Team B) Procedures Combined list of: 1) Procedures from Department of Veterans Affairs facilities going back up to thelast 18 months, not all VA non-surgical procedures are included; 2) All procedures from the Department of Defense facilities. Procedure Procedure Type Code Date Perfomer Comments [facility] e No data available for this section Ambulato ry Pharmacy Immunization Administration By Injection, One Vaccine Immunization Administration By Injection, One Vaccine [id number] 04/15/20 06 [facility] Influenza Split Virus Vaccine 0.5mL Dosage Intramuscular 04/15/20 06 [facility] INFLUENZA VIRUS VACCINE, TRIVALENT (IIV3), SPLIT VIRUS, 0.5 ML DOSAGE, FOR INTRAMUSCULAR USE 04/15/20 06 [facility] INJECTION, KETOROLAC TROMETHAMINE, PER 15 MG 05/04/20 05 [facility] INFLUENZA VIRUS VACCINE, TRIVALENT (IIV3), SPLIT VIRUS, 0.5 ML DOSAGE, FOR INTRAMUSCULAR USE 03/27/20 05 [facility] Social History Combined list of available smoking, tobacco, and other social history from Department of Defense and Veterans Affairs facilities. Social History Type Response Date Comment Sour e Female 06/16/2020 Ambulatory Pha rmacy Sexual Orientation Ambula tory Pharmacy Gender identity Ambulator y Pharmacy This section is an empty soc ial history section. DoD Assessment and Plan Combined list of future care activities from Department of Defense and Veterans Affairs facilities (e.g., assessment and plan notes, appointments, orders, and referrals). Additional future care activities may be listed in the Plan of Care section. Result Assessment and Plan Date Source Assessment and Plan No data available for this section 06/23/2024 Ambulatory Pharmacy Functional Status Combined list of recent functional and cognitive assessments recorded at Department of Defense and Veterans Affairs (VA).VA Functional Phelps Measurement (FIM) Scale: 1 = Total Assistance (Subject = 0% +), 2 = Maximal Assistance (Subject = 25% +), 3 = Moderate Assistance (Subject = 50% +), 4 = Minimal Assistance (Subject = 75% +), 5 = Supervision, 6 = Modified Phelps (Device), 7 = Complete Phelps (Timely, Safely). Assessment Date/Time Source Assessment Type Assessment Skill Assessment Score Assessment Details No data available for this section
--- OUTSIDE RECORDS SUMMARY | 2024-06-22 19:31 | XMS_ITS | Clinical Summary ---
Author Organization [facility] Address [address] [place] [address] Care Team Providers Care Fabric Worker Supervisor Name Role Phone Lobito Cleaning MD Primary Care Provider [phone] Allergies Active Allergy Reactions Criticality Noted Date [...] long-term current use of insulin ([facility]) 100 each by other route once a week Use for Trulicity injection weekly. 100 each 1 4 Active blood-glucose meter kitIndications: Diabetes mellitus due to underlying condition with hyperglycemia, without long-term current use of insulin ([facility]) Use daily or as directed for monitoring of diabetes 1 kit 4 Active blood glucose diagnostic stripIndication s:Diabetes mellitus due to underlying condition with hyperglycemia, without long-term current use of insulin ([facility]) 1 each by other route 2 (two) times a day before lunch and dinner 180 each 3 4 09/05/19 25 Active lancets 31 gauge miscIndications :Diabetes mellitus due to underlying condition with hyperglycemia, without long-term current use of insulin ([facility]) 1 strip 2 (two) times a day [...] 4 Assessment & Plan (07/09/2023 8:54 AM SHUTTLE THREADER): Symptoms are improved. Complete antibiotics and continue steroid cream. Palpitations 07/09/2023 Assessment & Plan (05/21/2024 9:21 AM SHUTTLE THREADER): Reorder holter monitor. Reviewed normal TSH. Assessment & Plan (07/09/2023 8:58 AM SHUTTLE THREADER): Order monitor. Await TSH. She is intolerant of CPAP. Essential hypertension 01/01/2023 Assessment & Plan (03/02/2024 6:36 AM CDT): Hypertension is controlled. Continue current regimen. Assessment & Plan (01/02/2023 3:40 PM CDT): Hypertension is controlled. Continue current regimen. Morbid (severe) obesity due to excess calories 0 01/28/2022 Body mass index 40.0-44.9, adult ([facility]) 01/28 Chest pain 01/28/2022 Assessment & Plan [...] prn. Assessment & Plan (05/31/2021 2:39 PM SHUTTLE THREADER): -PVR was low today at 15mL. -Reports only feeling this when she believes she has UTI. -No current symptoms. Acute cystitis without hematuria 05/31/2021 Assessment & Plan (05/31/2021 2:40 PM SHUTTLE THREADER): -Most recent UA done by PCP showing [...] 04/26/2021 Assessment & Plan (04/26/2021 10:11 AM SHUTTLE THREADER): Reviewed CXR. Order Chest CT. Dysuria 04/25/2021 Assessment & Plan (11/29/2021 2:44 PM CDT): -Has increased water intake. -No issues with dysuria or UTI-like symptoms since initial office visit. PLAN: -Continue with adequate water intake. -Reduce soda intake. Assessment & Plan (04/26/2021 10:07 AM SHUTTLE THREADER): Order UA. reviewed urinary hygiene. Treat with macrobid and await culture. Diarrhea of infectious origin 01/29/2021 Assessment & Plan (01/29/2021 9:48 AM CDT): Likely C.dif and antibiotic related. Start metronidazole. Cellulitis of buttock 01/29/2021 Assessment & Plan (01/29/2021 9:51 AM CDT): Cellulitis improved with antibiotics. Rash 01/28/2021 Screen for colon cancer 01/02/2021 Overview (01/02/2021): Added automatically from request for surgery [id number] Chronic right shoulder pain 10/05/2018 Assessment & Plan (10/05/2018 10:41 AM CDT): Reviewed ROM exercises for scapular pain. Class 3 severe obesity due t o excess calories with serious comorbidity and body mass index (BMI) of 40.0 to 44.9 in adult 04/21/2018 Assessment & Plan (04/26/2021 10:18 AM SHUTTLE THREADER): BMI is more than 40, reviewed calorie restrictions. Assessment & Plan (04/21/2018 8:56 AM SHUTTLE THREADER): BMI is more than 40, reviewed calorie restrictions. Diastolic heart failure secondary to hypertensio n ([facility]) 10/03/2017 Assessment & Plan (04/21/2018 6:47 AM SHUTTLE THREADER): Hypertension is controlled. Continue current regimen.CHF compensated. [...] 04/04/2017 Assessment & Plan (05/21/2024 9:13 AM SHUTTLE THREADER): Reviewed recent HgbA1C was improved to 6.2. [...] rosuvastatin. Assessment & Plan (07/09/2023 5:51 AM SHUTTLE THREADER): Her diabetes is uncontrolled;I advised her to follow with Endocrinology. Continue Januvia and glimepiride. Diabetes is complicated by hyperlipidemia;I advised a statin. Assessment & Plan (01/02/2023 3:37 PM CDT): Her diabetes is uncontrolled;I advised her to follow with Endocrinology. Continue Januvia and resume glimepiride. Diabetes is complicated by hyperlipidemia;I advised a statin. Assessment & Plan (05/31/2022 6:18 AM SHUTTLE THREADER): She does not have an appointment with [...] control. Assessment & Plan (04/25/2021 11:55 AM SHUTTLE THREADER): Reviewed HgbA1C was elevated at 7.5 on 11/02/20. Diabetes is not controlled. Continue current regimen and monitor diet. Reviewed dietary goals for elevated triglycerides,. Assessment & Plan (10/05/2018 6:41 AM CDT): Reviewed proper diet for elevated triglycerides. Assessment & Plan (04/21/2018 6:48 AM SHUTTLE THREADER): Reviewed proper diet. Continue diet for elevated triglycerides. Assessment & Plan (10/03/2017 6:33 AM CDT): Reviewed proper diet for hyperlipidemia. Continue Diabetic regimen. Advised annual eye exam. Assessment & Plan (04/04/2017 9:27 AM SHUTTLE THREADER): Reviewed proper diet. She will consider statin therapy. Morbid obesity 04/04/2017 Assessment & Plan (04/04/2017 9:20 AM SHUTTLE THREADER): BMI is more than 40. Encouraged weight loss. Hypertension 10/07/2013 Assessment & Plan (05/21/2024 5:41 AM SHUTTLE THREADER): Hypertension is controlled. Continue current regimen. Assessment & Plan (01/16/2024 5:35 AM CDT): Hypertension is controlled. Continue current regimen. Assessment & Plan (11/13/2023 6:15 AM CDT): Hypertension is controlled. Continue current regimen. Assessment & Plan (07/09/2023 5:51 AM SHUTTLE THREADER): Hypertension is controlled. Continue current regimen. Assessment & Plan (05/31/2022 6:17 AM SHUTTLE THREADER): Hypertension is controlled. Continue current regimen. Assessment [...] 04/06/21. Assessment & Plan (04/25/2021 11:54 AM SHUTTLE THREADER): Hypertension is controlled. Continue current regimen. Assessment & Plan (10/05/2018 6:41 AM CDT): Hypertension is controlled. Continue current regimen. Assessment & Plan (04/04/2017 6:58 AM SHUTTLE THREADER): Hypertension is controlled. Continue current regimen. Type 2 diabetes mellitus wit h hyperglycemia, without long-term current use of insulin ([facility]) 10/07/2013 Assessment & Plan (01/28/2021 9:10 AM CDT): Reviewed HgbA1C was elevated at 7.5 on 11/02/20. Diabetes is not controlled. Continue current regimen and monitor diet. Assessment & Plan (10/05/2018 6:42 AM CDT): Continue glimepiride. Continue diet for elevated triglycerides. Assessment & Plan (04/21/2018 6:50 AM SHUTTLE THREADER): Last Hgba1C was elevated. Continue current regimen. Assessment & Plan (04/04/2017 6:59 AM SHUTTLE THREADER): Continue current regimen. Advised annual eye exam. Reviewed proper diet. Continue statin therapy. Generalized anxiety disorder 09/18/2013 Overview (08/07/2016): GENERALIZED ANXIETY DIS Assessment & Plan (01/01/2023 8:12 AM CDT): Continue lorazepam as needed. She declines a SSRI. Hypothyroidism 09/18/2013 Overview (08/09/2016): HYPOTHYROIDISM NOS Assessment & Plan (05/21/2024 5:41 AM SHUTTLE THREADER): Continue levothyroxine. Assessment & Plan (03/02/2024 6:36 AM CDT): Continue levothyroxine. Assessment & Plan (01/16/2024 5:35 AM CDT): Continue levothyroxine. Order labs. Assessment & Plan (11/13/2023 6:15 AM CDT): Continue levothyroxine. Assessment & Plan (07/09/2023 5:51 AM SHUTTLE THREADER): Continue levothyroxine and Endocrinology care. Assessment & Plan (01/01/2023 8:12 AM CDT): Continue levothyroxine and Endocrinology care. Assessment & Plan (05/31/2022 6:17 AM SHUTTLE THREADER): Continue levothyroxine and Endocrinology care. Assessment & Plan (01/28/2022 7:04 AM CDT): Continue levothyroxine and Endocrinology care. Assessment & Plan (09/13/2021 9:06 AM CDT): Continue levothyroxine. Assessment & Plan (07/26/2021 9:41 AM CDT): Continue levothyroxine. Order TSH. Assessment & Plan (04/25/2021 11:54 AM SHUTTLE THREADER): Reviewed normal TSH 11/02/20. Continue levothyroxine. Assessment & Plan (01/28/2021 9:09 AM CDT): Reviewed normal TSH 11/02/20. Continue levothyroxine. Assessment & Plan (10/05/2018 6:42 AM CDT): Continue levothyroxine. Assessment & Plan (04/21/2018 6:49 AM SHUTTLE THREADER): Continue levothyroxine. Recent TSH at goal. Assessment & Plan (10/03/2017 6:33 AM CDT): Problem controlled. Continue levothyroxine. Assessment & Plan (04/04/2017 6:59 AM SHUTTLE THREADER): Continue levothyroxine. Gastroesophageal reflux disease 09/18/2013 Overview [...] Type Department Care Team Description 06/21/[address] [place] [phone] Lobito Cleaning MD Medication Request 05/21/2024 10:00 AM SHUTTLE THREADER Office Visit [place] [id number] [facility] [address] [place] [address] Lobito Cleaning MD Primary hypertension (Primary Dx); [...] on file Legal Sex Female 2:19 PM SHUTTLE THREADER Gender Identity Not on file Sexual Orientation Not on file Obstetrics History Last Filed Vital Signs Vital Sign Reading Time Taken Comments Blood Pressure 120/62 05/21/2024 8:57 AM SHUTTLE THREADER Pulse 74 05/21/2024 8:57 AM SHUTTLE THREADER Temperature 36.1 C (97 F) 05/21/2024 8:57 AM SHUTTLE THREADER Respiratory Rate 18 05/21/2024 8:57 AM SHUTTLE THREADER Oxygen Saturation 95% 05/21/2024 8:57 AM SHUTTLE THREADER Inhaled Oxygen Concentration - - Weight 101.6 kg (224 lb) 05/21/2024 8:57 AM SHUTTLE THREADER Height 165.1 cm (5' 5 ) 05/21/2024 8:57 AM SHUTTLE THREADER Body Mass Index 37.28 05/21/2024 8:57 AM SHUTTLE THREADER Plan of Treatment Scheduled Procedures Name Priority [...] HEMOGLOBIN A1C Routine 05/21/2024 9 :08 AM SHUTTLE THREADER Hyperlipidemia associated with type 2 diabetes mellitus [...] * POCT hemoglobin A1c (05/21/2024 9:08 AM SHUTTLE THREADER) Hemoglobin A1C, POC 6.2 4.0 - 5.6 % Blood 05/21/2024 9:08 AM SHUTTLE THREADER Lobito Cleaning MD POINT OF CARE TEST [...] ORDERABLES Final Re sult Performing Organization Address [facility] de Phone Number [facility] [place] [address] * Albumin Creatinine Ratio, Urine (01/16/2024 8:49 AM CDT) Albumin Ur <12.0 mg/L Comment: Interpretive Data No reference range established. Current interpretive data was last revised 2018. Creatinine Ur 28.6 mg/dL [facility] Comment: Interpretive Data No reference range established. Current interpretive data was last revised 2018. Albumin Creatinine Ratio, Ur See Comment 1 - 29 mg/g [facility] Comment:Unable to calculate Urine 01/16/2024 8:49 AM CDT 01/16/2024 12:29 PM CDT Lobito Cleaning MD LAB URINE ORDERABLES Final Re sult Performing Organization Address [facility] de Phone Number [facility] [place] [address] * (ABNORMAL) Lipid panel (01/16/2024 8:49 AM [...] revised on 2017. Triglycerides 186(H) <=149 mg/dL [facility] Comment: Interpretive Data Ages < or [...] revised on 2017. HDL 33(L) >=40 mg/dL [facility] Comment: Interpretive Data Ages < or [...] on 2017. LDL, calculated 135(H) <=129 mg/dL [facility] Comment: Interpretive Data Ages < or [...] revised on 2017. Chol/HDL ratio 6 [facility] Blood 01/16/2024 8:49 AM CDT 01/16/2024 12:29 PM CDT Lobito Cleaning MD LAB BLOOD ORDERABLES Final Re sult [facility] [place] [address] * Diagnostic Mammogram Bilateral W Sheila (10/14/2022 [...] MEDICARE FOR LIFE MEDICARE FOR LIFE MEDICARE [facility] Address: [facility] [address] [place] [address] FOR LIFE Care Teams Fabric Worker Supervisor Relationship Specialty Start Date End Date Lobito Cleaning MD [address] [facility] [address] [place] [address] PCP - General Internal Medicine 11/02/20
--- OUTSIDE RECORDS SUMMARY | 2024-06-22 19:31 | XMS_ITS | Clinical Summary ---
Author Organization [facility] Address [address] [place] [id number] Care Team Providers Care Gear Roller Name Role Phone Unavailable Primary Care Provider [...]
--- OUTSIDE RECORDS SUMMARY | 2024-06-22 19:31 | XMS_ITS | Encounter Summary ---
Author Organization [facility] Address [address] [place] [address] Care Team Providers Care Shop Mechanic Name Role Phone Lobito Cleaning MD Primary Care Provider [phone] Reason for Visit * Reason Onset Date Comments Medication Request 06/21/2024 Encounter Details Date Type Department Care Team (Late st Contact Info) Description 06/21/2024 Telephone [facility] [address] [address] [place] [address] Lobito Cleaning MD [address] [facility] [address] [place] [address] Medication Request Social History Tobacco Use Types Packs/Day Years [...] on file Legal Sex Female 2:19 PM SUPERVISOR FINISH END Gender Identity Not on file Sexual Orientation Not on file documented as of this encounter Miscellaneous Notes * Telephone Encounter - Maira Neely - 06/21/2024 1:01 PM CST Medication Question/Clarification Medication Name(s)/Dose: z pack What is the question or clarification needed? Patient just left [facility] ED. She was seen for a cough, and shortness of breath, she had a chest xray and it was clear, she said she did test positive for influenza A, however was not prescribed Tamiflu or anything else, she is asking if a z pack can be sent in. She said that usually it turns in to bronchitis. She said that she was told if she has trouble breathing to go back to the ED. If needed, Pharmacy(s) medication(s) should be sent to: on file Additional Comments: please call patient top advise Does message need to be routed? Yes-Action Needed RVISOR FINISH END documented in this encounter Plan of Treatment Scheduled Procedures Name Priority Associated Diagnoses Date/Ti me ESOPHAGOGASTRODUODENOSCOPY Open Access Dysphagia, unspecified type COLONOSCOPY Screen for colon cancer documented as of this encounter Visit Diagnoses Not on filedocumented in this encounter Care Teams Shop Mechanic Relationship Specialty Start Date End Date Lobito Cleaning MD [address] [address] PCP - General Internal Medicine 11/02/20 documented as of this encounter
--- OUTSIDE RECORDS SUMMARY | 2024-06-22 19:31 | XMS_ITS | Referral Summary ---
Author Organization [facility] Address [address] [place] [address] Care Team Providers Care Calibration Laboratory Technician Name Role Phone Lobito Cleaning MD Primary Care Provider [phone] Encounters Date Type Department Care Team Description 06/21/2024 Telephone [facility] [address] [facility] [address] [place] [address] [phone] Lobito Cleaning MD Medication Request 05/21/2024 10:00 AM [employer]OP[employer]OWER Office Visit [facility] [address] [facility] [address] [place] [address] [phone] Lobito Cleaning MD Primary hypertension (Primary Dx); [...] hyperglycemia, without long-term current use of insulin ([facility]) 100 each by other route once a week Use for Trulicity injection weekly. 100 each 4 Active blood-glucose meter kitIndications: Diabetes mellitus due to underlying condition with hyperglycemia, without long-term current use of insulin ([facility]) Use daily or as directed for monitoring of diabetes 1 kit 4 Active blood glucose diagnostic stripIndication s:Diabetes mellitus due to underlying condition with hyperglycemia, without long-term current use of insulin ([facility]) 1 each by other route 2 (two) times a day before lunch and dinner 180 each 4 09/05/19 25 Active lancets 31 gauge miscIndications :Diabetes mellitus due to underlying condition with hyperglycemia, without long-term current use of insulin ([facility]) 1 strip 2 (two) times [...] leg Assessment & Plan (07/09/2023 8:54 AM HY[employer]OP[employer] [facility]OWER): Symptoms are improved. Complete antibiotics and continue steroid cream. Palpitations 07/09/2023 Assessment & Plan (05/21/2024 9:21 AM [employer] [facility]): Reorder holter monitor. Reviewed normal TSH. Assessment & Plan (07/09/2023 8:58 AM HYDROP[employer]OWER): Order monitor. Await TSH. She is intolerant [...] prn. Assessment & Plan (05/31/2021 2:39 PM HYDROP[employer]OWER): -PVR was low today at 15mL. -Reports only feeling this when she believes she has UTI. -No current symptoms. Acute cystitis without hematuria 05/31/2021 Assessment & Plan (05/31/2021 2:40 PM HYDROP[employer]): -Most recent UA done by PCP showing [...] 04/26/2021 Assessment & Plan (04/26/2021 10:11 AM HYDROP[employer]OWER): Reviewed CXR. Order Chest CT. Dysuria 04/25/2021 Assessment & Plan (11/29/2021 2:44 PM CDT): -Has increased water intake. -No issues with dysuria or UTI-like symptoms since initial office visit. PLAN: -Continue with adequate water intake. -Reduce soda intake. Assessment & Plan (04/26/2021 10:07 AM HYDROP[employer]ICS GROWER): Order UA. reviewed urinary hygiene. Treat with macrobid and await culture. Diarrhea of infectious origin 01/29/2021 Assessment & Plan (01/29/2021 9:48 AM CDT): Likely C.dif and antibiotic related. Start metronidazole. Cellulitis of buttock 01/29/2021 Assessment & Plan (01/29/2021 9:51 AM CDT): Cellulitis improved with antibiotics. Rash 01/28/2021 Screen for colon cancer 01/02/2021 Overview (01/02/2021): Added automatically from request for surgery [id number] Chronic right shoulder pain 10/05/2018 Assessment & Plan (10/05/2018 10:41 AM CDT): Reviewed ROM exercises for scapular pain. Class 3 severe obesity due t o excess calories with serious comorbidity and body mass index (BMI) of 40.0 to 44.9 in adult 04/21/2018 Assessment & Plan (04/26/2021 10:18 AM HYDROPONICS [employer]OWER): BMI is more than 40, reviewed calorie restrictions. Assessment & Plan (04/21/2018 8:56 AM HYDROP[employer]ICS GROWER): BMI is more than 40, reviewed calorie restrictions. Diastolic heart failure secondary to hypertensio n ([facility]) 10/03/2017 Assessment & Plan (04/21/2018 6:47 AM HYDROPONICS [employer]OWER): Hypertension is controlled. Continue current regimen.CHF compensated. [...] 04/04/2017 Assessment & Plan (05/21/2024 9:13 AM HYDROP[employer]ICS [employer]OWER): Reviewed recent HgbA1C was improved to 6.2. [...] rosuvastatin. Assessment & Plan (07/09/2023 5:51 AM HYDROP[employer]ICS [employer]OWER): Her diabetes is uncontrolled;I advised her to follow with Endocrinology. Continue Januvia and glimepiride. Diabetes is complicated by hyperlipidemia;I advised a statin. Assessment & Plan (01/02/2023 3:37 PM CDT): Her diabetes is uncontrolled;I advised her to follow with Endocrinology. Continue Januvia and resume glimepiride. Diabetes is complicated by hyperlipidemia;I advised a statin. Assessment & Plan (05/31/2022 6:18 AM HYDROP[employer] [facility]OWER): She does not have an appointment with [...] control. Assessment & Plan (04/25/2021 11:55 AM HYDROP[employer]OWER): Reviewed HgbA1C was elevated at 7.5 on 11/02/20. Diabetes is not controlled. Continue current regimen and monitor diet. Reviewed dietary goals for elevated triglycerides,. Assessment & Plan (10/05/2018 6:41 AM CDT): Reviewed proper diet for elevated triglycerides. Assessment & Plan (04/21/2018 6:48 AM [employer]OP[employer] [facility]): Reviewed proper diet. Continue diet for elevated triglycerides. Assessment & Plan (10/03/2017 6:33 AM CDT): Reviewed proper diet for hyperlipidemia. Continue Diabetic regimen. Advised annual eye exam. Assessment & Plan (04/04/2017 9:27 AM [employer]OP[employer]): Reviewed proper diet. She will consider statin therapy. Morbid obesity 04/04/2017 Assessment & Plan (04/04/2017 9:20 AM [employer]DROP[employer]OWER): BMI is more than 40. Encouraged weight loss. Hypertension 10/07/2013 Assessment & Plan (05/21/2024 5:41 AM [employer]OP[employer]): Hypertension is controlled. Continue current regimen. Assessment & Plan (01/16/2024 5:35 AM CDT): Hypertension is controlled. Continue current regimen. Assessment & Plan (11/13/2023 6:15 AM CDT): Hypertension is controlled. Continue current regimen. Assessment & Plan (07/09/2023 5:51 AM [employer]OP[employer]): Hypertension is controlled. Continue current regimen. Assessment & Plan (05/31/2022 6:17 AM HYDROP[employer] GROWER): Hypertension is controlled. Continue current regimen. Assessment [...] 04/06/21. Assessment & Plan (04/25/2021 11:54 AM HYDROP[employer]OWER): Hypertension is controlled. Continue current regimen. Assessment & Plan (10/05/2018 6:41 AM CDT): Hypertension is controlled. Continue current regimen. Assessment & Plan (04/04/2017 6:58 AM HYDROP[employer] GROWER): Hypertension is controlled. Continue current regimen. Type 2 diabetes mellitus wit h hyperglycemia, without long-term current use of insulin ([facility]) 10/07/2013 Assessment & Plan (01/28/2021 9:10 AM CDT): Reviewed HgbA1C was elevated at 7.5 on 11/02/20. Diabetes is not controlled. Continue current regimen and monitor diet. Assessment & Plan (10/05/2018 6:42 AM CDT): Continue glimepiride. Continue diet for elevated triglycerides. Assessment & Plan (04/21/2018 6:50 AM HYDROP[employer]ICS GROWER): Last Hgba1C was elevated. Continue current regimen. Assessment & Plan (04/04/2017 6:59 AM HYDROP[employer]OWER): Continue current regimen. Advised annual eye exam. Reviewed proper diet. Continue statin therapy. Generalized anxiety disorder 09/18/2013 Overview (08/07/2016): GENERALIZED ANXIETY DIS Assessment & Plan (01/01/2023 8:12 AM CDT): Continue lorazepam as needed. She declines a SSRI. Hypothyroidism 09/18/2013 Overview (08/09/2016): HYPOTHYROIDISM NOS Assessment & Plan (05/21/2024 5:41 AM [employer]OP[employer] [facility]): Continue levothyroxine. Assessment & Plan (03/02/2024 6:36 AM CDT): Continue levothyroxine. Assessment & Plan (01/16/2024 5:35 AM CDT): Continue levothyroxine. Order labs. Assessment & Plan (11/13/2023 6:15 AM CDT): Continue levothyroxine. Assessment & Plan (07/09/2023 5:51 AM HY[employer]OP[employer] [facility]OWER): Continue levothyroxine and Endocrinology care. Assessment & Plan (01/01/2023 8:12 AM CDT): Continue levothyroxine and Endocrinology care. Assessment & Plan (05/31/2022 6:17 AM HYDROP[employer] [facility]OWER): Continue levothyroxine and Endocrinology care. Assessment & Plan (01/28/2022 7:04 AM CDT): Continue levothyroxine and Endocrinology care. Assessment & Plan (09/13/2021 9:06 AM CDT): Continue levothyroxine. Assessment & Plan (07/26/2021 9:41 AM CDT): Continue levothyroxine. Order TSH. Assessment & Plan (04/25/2021 11:54 AM [employer] [facility]): Reviewed normal TSH 11/02/20. Continue levothyroxine. Assessment & Plan (01/28/2021 9:09 AM CDT): Reviewed normal TSH 11/02/20. Continue levothyroxine. Assessment & Plan (10/05/2018 6:42 AM CDT): Continue levothyroxine. Assessment & Plan (04/21/2018 6:49 AM [employer] [facility]): Continue levothyroxine. Recent TSH at goal. Assessment & Plan (10/03/2017 6:33 AM CDT): Problem controlled. Continue levothyroxine. Assessment & Plan (04/04/2017 6:59 AM [employer]OP[employer] [facility]): Continue levothyroxine. Gastroesophageal reflux disease 09/18/2013 Overview [...] on file Legal Sex Female 2:19 PM [employer] Gender Identity Not on file Sexual Orientation Not on file Last Filed Vital Signs Vital Sign Reading Time Taken Comments Blood Pressure 120/62 05/21/2024 8:57 AM [employer] [facility] Pulse 74 05/21/2024 8:57 AM [employer] [facility] Temperature 36.1 C (97 F) 05/21/2024 8:57 AM [employer] [facility] Respiratory Rate 18 05/21/2024 8:57 AM [employer] [facility] Oxygen Saturation 95% 05/21/2024 8:57 AM [employer] [facility] Inhaled Oxygen Concentration - - Weight 101.6 kg (224 lb) 05/21/2024 8:57 AM [employer] [facility] Height 165.1 cm (5' 5 ) 05/21/2024 8:57 AM [employer] [facility] Body Mass Index 37.28 05/21/2024 8:57 AM [employer] [facility] Plan of Treatment Scheduled Procedures Name Priority Associated Diagnoses Date/Ti me ESOPHAGOGASTRODUODENOSCOPY Open Access Dysphagia, unspecified type COLONOSCOPY Screen for colon cancer Procedures Procedure Name Priority Date/Time Associated Diagnosis Comments POCT HEMOGLOBIN A1C Routine 05/21/2024 9 :08 AM [employer] [facility] Hyperlipidemia associated with type 2 diabetes mellitus [...] * POCT hemoglobin A1c (05/21/2024 9:08 AM [employer] [facility]) Hemoglobin A1C, POC 6.2 4.0 - 5.6 % Blood 05/21/2024 9:08 AM [employer] [facility] Lobito Cleaning MD POINT OF CARE TEST [...] LAB BLOOD ORDERABLES Final Re sult [facility] Department [place] [address] * Albumin Creatinine Ratio, Urine (01/16/2024 8:49 AM CDT) Albumin Ur <12.0 mg/L Comment: Interpretive Data No reference range established. Current interpretive data was last revised 2018. Creatinine Ur 28.6 mg/dL [facility] Comment: Interpretive Data No reference range established. Current interpretive data was last revised 2018. Albumin Creatinine Ratio, Ur See Comment 1 - 29 mg/g [facility] Comment:Unable to calculate Urine 01/16/2024 8:49 AM CDT 01/16/2024 12:29 PM CDT us Lobito Cleaning MD LAB URINE ORDERABLES Final Re sult [facility] [place] [address] * (ABNORMAL) Lipid panel (01/16/2024 8:49 AM [...] on 2017. HDL 33(L) >=40 mg/dL [facility] Comment: Interpretive Data Ages < [...] 2017. LDL, calculated 135(H) <=129 mg/dL [facility] Comment: Interpretive Data Ages < [...] on 2023. Non-HDL Cholesterol 169 mg/dL [facility] Comment: Interpretive Data Ages < [...] last revised on 2017. Chol/HDL ratio 6 [facility] Blood 01/16/2024 8:49 AM CDT 01/16/2024 12:29 PM CDT us Lobito Cleaning MD LAB BLOOD ORDERABLES Final Re sult [facility] [place] [address] * Diagnostic Mammogram Bilateral W Sheila (10/14/2022 [...] MEDICARE FOR LIFE MEDIC[place] [id number] FOR LIFE Care Teams Calibration Laboratory Technician Relationship Specialty Start Date End Date Lobito Cleaning MD [address] [facility] [address] [place] [address] PCP - General Internal Medicine 11/02/20
--- OUTSIDE RECORDS SUMMARY | 2024-06-22 20:16 | XMS_ITS | Encounter Summary ---
Author Organization [facility] Address [address] [place] [address] Care Team Providers Care Cloth Mender Name Role Phone Lobito Cleaning MD Primary Care Provider [phone] Reason for Visit * Reason Onset Date Comments Medication Request 06/21/2024 Encounter Details Date Type Department Care Team (Late st Contact Info) Description 06/21/2024 Telephone [facility] [address] [place] [address] Lobito Cleaning MD [address] [facility] [address] [place] [address] Medication Request Social History Tobacco [...] on file Legal Sex Female 2:19 PM CONSTRUCTION CODE ADMINISTRATOR Gender Identity Not on file Sexual Orientation Not on file documented as of this encounter Miscellaneous Notes * Telephone Encounter - Maira Neely - 06/21/2024 1:01 PM CST Medication Question/Clarification Medication Name(s)/Dose: z pack What is the question or clarification needed? Patient just left [facility] ED. She was seen for a cough, [...] message need to be routed? Yes-Action Needed TRUCTION CODE ADMINISTRATOR documented in this encounter Plan of Treatment Scheduled Procedures Name Priority Associated Diagnoses Date/Ti me ESOPHAGOGASTRODUODENOSCOPY Open Access Dysphagia, unspecified type COLONOSCOPY Screen for colon cancer documented as of this encounter Visit Diagnoses Not on filedocumented in this encounter Care Teams Cloth Mender Relationship Specialty Start Date End Date Lobito Cleaning MD [address] [address] PCP - General Internal Medicine 11/02/20 documented as of this encounter
--- OUTSIDE RECORDS SUMMARY | 2024-06-22 20:16 | XMS_ITS | Clinical Summary ---
Author Organization [facility] Address [address] [place] [id number] Care Team Providers Care Crushing Mill Operator Name Role Phone Unavailable Primary Care Provider [...]
--- OUTSIDE RECORDS SUMMARY | 2024-06-22 20:16 | XMS_ITS | Referral Summary ---
Author Organization [facility] Address [address] [place] [address] Care Team Providers Care Tipping Machine Operator Automatic Name Role Phone Lobito Cleaning MD Primary Care Provider [phone] Encounters Date Type Department Care Team Description 06/21/2024 Telephone [facility] [address] [facility] [address] [place] [address] [phone] Lobito Cleaning MD Medication Request 05/21/2024 10:00 AM GLASS SCIENCE ENGINEER Office Visit [facility] [address] [facility] [address] [place] [address] [phone] Lobito Cleaning MD Primary hypertension (Primary Dx); [...] hyperglycemia, without long-term current use of insulin ([facility]) 100 each by other route once a week Use for Trulicity injection weekly. 100 each 4 Active blood-glucose meter kitIndications: Diabetes mellitus due to underlying condition with hyperglycemia, without long-term current use of insulin ([facility]) Use daily or as directed for monitoring of diabetes 1 kit 4 Active blood glucose diagnostic stripIndication s:Diabetes mellitus due to underlying condition with hyperglycemia, without long-term current use of insulin ([facility]) 1 each by other route 2 (two) times a day before lunch and dinner 180 each 4 09/05/19 25 Active lancets 31 gauge miscIndications :Diabetes mellitus due to underlying condition with hyperglycemia, without long-term current use of insulin ([facility]) 1 strip 2 (two) times a day [...] leg Assessment & Plan (07/09/2023 8:54 AM GLASS SCIENCE ENGINEER): Symptoms are improved. Complete antibiotics and continue steroid cream. Palpitations 07/09/2023 Assessment & Plan (05/21/2024 9:21 AM GLASS SCIENCE ENGINEER): Reorder holter monitor. Reviewed normal TSH. Assessment & Plan (07/09/2023 8:58 AM GLASS SCIENCE ENGINEER): Order monitor. Await TSH. She is intolerant [...] prn. Assessment & Plan (05/31/2021 2:39 PM GLASS SCIENCE ENGINEER): -PVR was low today at 15mL. -Reports only feeling this when she believes she has UTI. -No current symptoms. Acute cystitis without hematuria 05/31/2021 Assessment & Plan (05/31/2021 2:40 PM GLASS SCIENCE ENGINEER): -Most recent UA done by PCP showing [...] 04/26/2021 Assessment & Plan (04/26/2021 10:11 AM GLASS SCIENCE ENGINEER): Reviewed CXR. Order Chest CT. Dysuria 04/25/2021 Assessment & Plan (11/29/2021 2:44 PM CDT): -Has increased water intake. -No issues with dysuria or UTI-like symptoms since initial office visit. PLAN: -Continue with adequate water intake. -Reduce soda intake. Assessment & Plan (04/26/2021 10:07 AM GLASS SCIENCE ENGINEER): Order UA. reviewed urinary hygiene. Treat with macrobid and await culture. Diarrhea of infectious origin 01/29/2021 Assessment & Plan (01/29/2021 9:48 AM CDT): Likely C.dif and antibiotic related. Start metronidazole. Cellulitis of buttock 01/29/2021 Assessment & Plan (01/29/2021 9:51 AM CDT): Cellulitis improved with antibiotics. Rash 01/28/2021 Screen for colon cancer 01/02/2021 Overview (01/02/2021): Added automatically from request for surgery [id number] Chronic right shoulder pain 10/05/2018 Assessment & Plan (10/05/2018 10:41 AM CDT): Reviewed ROM exercises for scapular pain. Class 3 severe obesity due t o excess calories with serious comorbidity and body mass index (BMI) of 40.0 to 44.9 in adult 04/21/2018 Assessment & Plan (04/26/2021 10:18 AM GLASS SCIENCE ENGINEER): BMI is more than 40, reviewed calorie restrictions. Assessment & Plan (04/21/2018 8:56 AM GLASS SCIENCE ENGINEER): BMI is more than 40, reviewed calorie restrictions. Diastolic heart failure secondary to hypertensio n ([facility]) 10/03/2017 Assessment & Plan (04/21/2018 6:47 AM GLASS SCIENCE ENGINEER): Hypertension is controlled. Continue current regimen.CHF compensated. [...] 04/04/2017 Assessment & Plan (05/21/2024 9:13 AM GLASS SCIENCE ENGINEER): Reviewed recent HgbA1C was improved to 6.2. [...] rosuvastatin. Assessment & Plan (07/09/2023 5:51 AM GLASS SCIENCE ENGINEER): Her diabetes is uncontrolled;I advised her to follow with Endocrinology. Continue Januvia and glimepiride. Diabetes is complicated by hyperlipidemia;I advised a statin. Assessment & Plan (01/02/2023 3:37 PM CDT): Her diabetes is uncontrolled;I advised her to follow with Endocrinology. Continue Januvia and resume glimepiride. Diabetes is complicated by hyperlipidemia;I advised a statin. Assessment & Plan (05/31/2022 6:18 AM GLASS SCIENCE ENGINEER): She does not have an appointment with [...] control. Assessment & Plan (04/25/2021 11:55 AM GLASS SCIENCE ENGINEER): Reviewed HgbA1C was elevated at 7.5 on 11/02/20. Diabetes is not controlled. Continue current regimen and monitor diet. Reviewed dietary goals for elevated triglycerides,. Assessment & Plan (10/05/2018 6:41 AM CDT): Reviewed proper diet for elevated triglycerides. Assessment & Plan (04/21/2018 6:48 AM GLASS SCIENCE ENGINEER): Reviewed proper diet. Continue diet for elevated triglycerides. Assessment & Plan (10/03/2017 6:33 AM CDT): Reviewed proper diet for hyperlipidemia. Continue Diabetic regimen. Advised annual eye exam. Assessment & Plan (04/04/2017 9:27 AM GLASS SCIENCE ENGINEER): Reviewed proper diet. She will consider statin therapy. Morbid obesity 04/04/2017 Assessment & Plan (04/04/2017 9:20 AM GLASS SCIENCE ENGINEER): BMI is more than 40. Encouraged weight loss. Hypertension 10/07/2013 Assessment & Plan (05/21/2024 5:41 AM GLASS SCIENCE ENGINEER): Hypertension is controlled. Continue current regimen. Assessment & Plan (01/16/2024 5:35 AM CDT): Hypertension is controlled. Continue current regimen. Assessment & Plan (11/13/2023 6:15 AM CDT): Hypertension is controlled. Continue current regimen. Assessment & Plan (07/09/2023 5:51 AM GLASS SCIENCE ENGINEER): Hypertension is controlled. Continue current regimen. Assessment & Plan (05/31/2022 6:17 AM GLASS SCIENCE ENGINEER): Hypertension is controlled. Continue current regimen. Assessment [...] 04/06/21. Assessment & Plan (04/25/2021 11:54 AM GLASS SCIENCE ENGINEER): Hypertension is controlled. Continue current regimen. Assessment & Plan (10/05/2018 6:41 AM CDT): Hypertension is controlled. Continue current regimen. Assessment & Plan (04/04/2017 6:58 AM GLASS SCIENCE ENGINEER): Hypertension is controlled. Continue current regimen. Type 2 diabetes mellitus wit h hyperglycemia, without long-term current use of insulin ([facility]) 10/07/2013 Assessment & Plan (01/28/2021 9:10 AM CDT): Reviewed HgbA1C was elevated at 7.5 on 11/02/20. Diabetes is not controlled. Continue current regimen and monitor diet. Assessment & Plan (10/05/2018 6:42 AM CDT): Continue glimepiride. Continue diet for elevated triglycerides. Assessment & Plan (04/21/2018 6:50 AM GLASS SCIENCE ENGINEER): Last Hgba1C was elevated. Continue current regimen. Assessment & Plan (04/04/2017 6:59 AM GLASS SCIENCE ENGINEER): Continue current regimen. Advised annual eye exam. Reviewed proper diet. Continue statin therapy. Generalized anxiety disorder 09/18/2013 Overview (08/07/2016): GENERALIZED ANXIETY DIS Assessment & Plan (01/01/2023 8:12 AM CDT): Continue lorazepam as needed. She declines a SSRI. Hypothyroidism 09/18/2013 Overview (08/09/2016): HYPOTHYROIDISM NOS Assessment & Plan (05/21/2024 5:41 AM GLASS SCIENCE ENGINEER): Continue levothyroxine. Assessment & Plan (03/02/2024 6:36 AM CDT): Continue levothyroxine. Assessment & Plan (01/16/2024 5:35 AM CDT): Continue levothyroxine. Order labs. Assessment & Plan (11/13/2023 6:15 AM CDT): Continue levothyroxine. Assessment & Plan (07/09/2023 5:51 AM GLASS SCIENCE ENGINEER): Continue levothyroxine and Endocrinology care. Assessment & Plan (01/01/2023 8:12 AM CDT): Continue levothyroxine and Endocrinology care. Assessment & Plan (05/31/2022 6:17 AM GLASS SCIENCE ENGINEER): Continue levothyroxine and Endocrinology care. Assessment & Plan (01/28/2022 7:04 AM CDT): Continue levothyroxine and Endocrinology care. Assessment & Plan (09/13/2021 9:06 AM CDT): Continue levothyroxine. Assessment & Plan (07/26/2021 9:41 AM CDT): Continue levothyroxine. Order TSH. Assessment & Plan (04/25/2021 11:54 AM GLASS SCIENCE ENGINEER): Reviewed normal TSH 11/02/20. Continue levothyroxine. Assessment & Plan (01/28/2021 9:09 AM CDT): Reviewed normal TSH 11/02/20. Continue levothyroxine. Assessment & Plan (10/05/2018 6:42 AM CDT): Continue levothyroxine. Assessment & Plan (04/21/2018 6:49 AM GLASS SCIENCE ENGINEER): Continue levothyroxine. Recent TSH at goal. Assessment & Plan (10/03/2017 6:33 AM CDT): Problem controlled. Continue levothyroxine. Assessment & Plan (04/04/2017 6:59 AM GLASS SCIENCE ENGINEER): Continue levothyroxine. Gastroesophageal reflux disease 09/18/2013 Overview [...] on file Legal Sex Female 2:19 PM GLASS SCIENCE ENGINEER Gender Identity Not on file Sexual Orientation Not on file Last Filed Vital Signs Vital Sign Reading Time Taken Comments Blood Pressure 120/62 05/21/2024 8:57 AM GLASS SCIENCE ENGINEER Pulse 74 05/21/2024 8:57 AM GLASS SCIENCE ENGINEER Temperature 36.1 C (97 F) 05/21/2024 8:57 AM GLASS SCIENCE ENGINEER Respiratory Rate 18 05/21/2024 8:57 AM GLASS SCIENCE ENGINEER Oxygen Saturation 95% 05/21/2024 8:57 AM GLASS SCIENCE ENGINEER Inhaled Oxygen Concentration - - Weight 101.6 kg (224 lb) 05/21/2024 8:57 AM GLASS SCIENCE ENGINEER Height 165.1 cm (5' 5 ) 05/21/2024 8:57 AM GLASS SCIENCE ENGINEER Body Mass Index 37.28 05/21/2024 8:57 AM GLASS SCIENCE ENGINEER Plan of Treatment Scheduled Procedures Name Priority Associated Diagnoses Date/Ti me ESOPHAGOGASTRODUODENOSCOPY Open Access Dysphagia, unspecified type COLONOSCOPY Screen for colon cancer Procedures Procedure Name Priority Date/Time Associated Diagnosis Comments POCT HEMOGLOBIN A1C Routine 05/21/2024 9 :08 AM GLASS SCIENCE ENGINEER Hyperlipidemia associated with type 2 diabetes mellitus [...] * POCT hemoglobin A1c (05/21/2024 9:08 AM GLASS SCIENCE ENGINEER) Hemoglobin A1C, POC 6.2 4.0 - 5.6 % Blood 05/21/2024 9:08 AM GLASS SCIENCE ENGINEER Lobito Cleaning MD POINT OF CARE TEST [...] LAB BLOOD ORDERABLES Final Re sult [facility] Department [place] [address] * Albumin Creatinine Ratio, Urine (01/16/2024 8:49 AM CDT) Albumin Ur <12.0 mg/L Comment: Interpretive Data No reference range established. Current interpretive data was last revised 2018. Creatinine Ur 28.6 mg/dL [facility] Comment: Interpretive Data No reference range established. Current interpretive data was last revised 2018. Albumin Creatinine Ratio, Ur See Comment 1 - 29 mg/g [facility] Comment:Unable to calculate Urine 01/16/2024 8:49 AM CDT 01/16/2024 12:29 PM CDT us Lobito Cleaning MD LAB URINE ORDERABLES Final Re sult [facility] Department [place] [address] * (ABNORMAL) Lipid panel (01/16/2024 8:49 AM [...] on 2017. HDL 33(L) >=40 mg/dL [facility] Comment: Interpretive Data Ages < or [...] 2017. LDL, calculated 135(H) <=129 mg/dL [facility] Comment: Interpretive Data Ages < or [...] on 2023. Non-HDL Cholesterol 169 mg/dL [facility] Comment: Interpretive Data Ages < or [...] last revised on 2017. Chol/HDL ratio 6 [facility] Blood 01/16/2024 8:49 AM CDT 01/16/2024 12:29 PM CDT us Lobito Cleaning MD LAB BLOOD ORDERABLES Final Re sult [facility] [place] [address] * Diagnostic Mammogram Bilateral W Sheila (10/14/2022 [...] MEDICARE FOR LIFE MEDICARE FOR LIFE MEDICARE [facility] Address: [facility] [address] [place] [address] FOR LIFE Care Teams Tipping Machine Operator Automatic Relationship Specialty Start Date End Date Lobito Cleaning MD [address] [facility] [address] [place] [address] PCP - General Internal Medicine 11/02/20
--- OUTSIDE RECORDS SUMMARY | 2024-06-22 20:16 | XMS_ITS | Clinical Summary ---
Author Organization [facility] Address [address] [place] [address] Care Team Providers Care Assembler Molded Frames Name Role Phone Lobito Cleaning MD Primary Care Provider Allergies Active Allergy Reactions Criticality Noted Date [...] long-term current use of insulin ([facility]) 100 each by other route once a week Use for Trulicity injection weekly. 100 each 1 4 Active blood-glucose meter kitIndications: Diabetes mellitus due to underlying condition with hyperglycemia, without long-term current use of insulin ([facility]) Use daily or as directed for monitoring of diabetes 1 kit 4 Active blood glucose diagnostic stripIndication s:Diabetes mellitus due to underlying condition with hyperglycemia, without long-term current use of insulin ([facility]) 1 each by other route 2 (two) times a day before lunch and dinner 180 each 3 4 09/05/19 25 Active lancets 31 gauge miscIndications :Diabetes mellitus due to underlying condition with hyperglycemia, without long-term current use of insulin ([facility]) 1 strip 2 (two) times [...] 4 Assessment & Plan (07/09/2023 8:54 AM SHAKE FEEDER): Symptoms are improved. Complete antibiotics and continue steroid cream. Palpitations 07/09/2023 Assessment & Plan (05/21/2024 9:21 AM SHAKE FEEDER): Reorder holter monitor. Reviewed normal TSH. Assessment & Plan (07/09/2023 8:58 AM SHAKE FEEDER): Order monitor. Await TSH. She is intolerant of CPAP. Essential hypertension 01/01/2023 Assessment & Plan (03/02/2024 6:36 AM CDT): Hypertension is controlled. Continue current regimen. Assessment & Plan (01/02/2023 3:40 PM CDT): Hypertension is controlled. Continue current regimen. Morbid (severe) obesity due to excess calories 0 01/28/2022 Body mass index 40.0-44.9, adult ([facility]) 01/28 Chest pain 01/28/2022 Assessment [...] prn. Assessment & Plan (05/31/2021 2:39 PM SHAKE FEEDER): -PVR was low today at 15mL. -Reports only feeling this when she believes she has UTI. -No current symptoms. Acute cystitis without hematuria 05/31/2021 Assessment & Plan (05/31/2021 2:40 PM SHAKE FEEDER): -Most recent UA done by PCP showing [...] 04/26/2021 Assessment & Plan (04/26/2021 10:11 AM SHAKE FEEDER): Reviewed CXR. Order Chest CT. Dysuria 04/25/2021 Assessment & Plan (11/29/2021 2:44 PM CDT): -Has increased water intake. -No issues with dysuria or UTI-like symptoms since initial office visit. PLAN: -Continue with adequate water intake. -Reduce soda intake. Assessment & Plan (04/26/2021 10:07 AM SHAKE FEEDER): Order UA. reviewed urinary hygiene. Treat with macrobid and await culture. Diarrhea of infectious origin 01/29/2021 Assessment & Plan (01/29/2021 9:48 AM CDT): Likely C.dif and antibiotic related. Start metronidazole. Cellulitis of buttock 01/29/2021 Assessment & Plan (01/29/2021 9:51 AM CDT): Cellulitis improved with antibiotics. Rash 01/28/2021 Screen for colon cancer 01/02/2021 Overview (01/02/2021): Added automatically from request for surgery [id number] Chronic right shoulder pain 10/05/2018 Assessment & Plan (10/05/2018 10:41 AM CDT): Reviewed ROM exercises for scapular pain. Class 3 severe obesity due t o excess calories with serious comorbidity and body mass index (BMI) of 40.0 to 44.9 in adult 04/21/2018 Assessment & Plan (04/26/2021 10:18 AM SHAKE FEEDER): BMI is more than 40, reviewed calorie restrictions. Assessment & Plan (04/21/2018 8:56 AM SHAKE FEEDER): BMI is more than 40, reviewed calorie restrictions. Diastolic heart failure secondary to hypertensio n ([facility]) 10/03/2017 Assessment & Plan (04/21/2018 6:47 AM SHAKE FEEDER): Hypertension is controlled. Continue current regimen.CHF compensated. [...] 04/04/2017 Assessment & Plan (05/21/2024 9:13 AM SHAKE FEEDER): Reviewed recent HgbA1C was improved to 6.2. [...] rosuvastatin. Assessment & Plan (07/09/2023 5:51 AM SHAKE FEEDER): Her diabetes is uncontrolled;I advised her to follow with Endocrinology. Continue Januvia and glimepiride. Diabetes is complicated by hyperlipidemia;I advised a statin. Assessment & Plan (01/02/2023 3:37 PM CDT): Her diabetes is uncontrolled;I advised her to follow with Endocrinology. Continue Januvia and resume glimepiride. Diabetes is complicated by hyperlipidemia;I advised a statin. Assessment & Plan (05/31/2022 6:18 AM SHAKE FEEDER): She does not have an appointment with [...] control. Assessment & Plan (04/25/2021 11:55 AM SHAKE FEEDER): Reviewed HgbA1C was elevated at 7.5 on 11/02/20. Diabetes is not controlled. Continue current regimen and monitor diet. Reviewed dietary goals for elevated triglycerides,. Assessment & Plan (10/05/2018 6:41 AM CDT): Reviewed proper diet for elevated triglycerides. Assessment & Plan (04/21/2018 6:48 AM SHAKE FEEDER): Reviewed proper diet. Continue diet for elevated triglycerides. Assessment & Plan (10/03/2017 6:33 AM CDT): Reviewed proper diet for hyperlipidemia. Continue Diabetic regimen. Advised annual eye exam. Assessment & Plan (04/04/2017 9:27 AM SHAKE FEEDER): Reviewed proper diet. She will consider statin therapy. Morbid obesity 04/04/2017 Assessment & Plan (04/04/2017 9:20 AM SHAKE FEEDER): BMI is more than 40. Encouraged weight loss. Hypertension 10/07/2013 Assessment & Plan (05/21/2024 5:41 AM SHAKE FEEDER): Hypertension is controlled. Continue current regimen. Assessment & Plan (01/16/2024 5:35 AM CDT): Hypertension is controlled. Continue current regimen. Assessment & Plan (11/13/2023 6:15 AM CDT): Hypertension is controlled. Continue current regimen. Assessment & Plan (07/09/2023 5:51 AM SHAKE FEEDER): Hypertension is controlled. Continue current regimen. Assessment & Plan (05/31/2022 6:17 AM SHAKE FEEDER): Hypertension is controlled. Continue current regimen. Assessment [...] 04/06/21. Assessment & Plan (04/25/2021 11:54 AM SHAKE FEEDER): Hypertension is controlled. Continue current regimen. Assessment & Plan (10/05/2018 6:41 AM CDT): Hypertension is controlled. Continue current regimen. Assessment & Plan (04/04/2017 6:58 AM SHAKE FEEDER): Hypertension is controlled. Continue current regimen. Type 2 diabetes mellitus wit h hyperglycemia, without long-term current use of insulin ([facility]) 10/07/2013 Assessment & Plan (01/28/2021 9:10 AM CDT): Reviewed HgbA1C was elevated at 7.5 on 11/02/20. Diabetes is not controlled. Continue current regimen and monitor diet. Assessment & Plan (10/05/2018 6:42 AM CDT): Continue glimepiride. Continue diet for elevated triglycerides. Assessment & Plan (04/21/2018 6:50 AM SHAKE FEEDER): Last Hgba1C was elevated. Continue current regimen. Assessment & Plan (04/04/2017 6:59 AM SHAKE FEEDER): Continue current regimen. Advised annual eye exam. Reviewed proper diet. Continue statin therapy. Generalized anxiety disorder 09/18/2013 Overview (08/07/2016): GENERALIZED ANXIETY DIS Assessment & Plan (01/01/2023 8:12 AM CDT): Continue lorazepam as needed. She declines a SSRI. Hypothyroidism 09/18/2013 Overview (08/09/2016): HYPOTHYROIDISM NOS Assessment & Plan (05/21/2024 5:41 AM SHAKE FEEDER): Continue levothyroxine. Assessment & Plan (03/02/2024 6:36 AM CDT): Continue levothyroxine. Assessment & Plan (01/16/2024 5:35 AM CDT): Continue levothyroxine. Order labs. Assessment & Plan (11/13/2023 6:15 AM CDT): Continue levothyroxine. Assessment & Plan (07/09/2023 5:51 AM SHAKE FEEDER): Continue levothyroxine and Endocrinology care. Assessment & Plan (01/01/2023 8:12 AM CDT): Continue levothyroxine and Endocrinology care. Assessment & Plan (05/31/2022 6:17 AM SHAKE FEEDER): Continue levothyroxine and Endocrinology care. Assessment & Plan (01/28/2022 7:04 AM CDT): Continue levothyroxine and Endocrinology care. Assessment & Plan (09/13/2021 9:06 AM CDT): Continue levothyroxine. Assessment & Plan (07/26/2021 9:41 AM CDT): Continue levothyroxine. Order TSH. Assessment & Plan (04/25/2021 11:54 AM SHAKE FEEDER): Reviewed normal TSH 11/02/20. Continue levothyroxine. Assessment & Plan (01/28/2021 9:09 AM CDT): Reviewed normal TSH 11/02/20. Continue levothyroxine. Assessment & Plan (10/05/2018 6:42 AM CDT): Continue levothyroxine. Assessment & Plan (04/21/2018 6:49 AM SHAKE FEEDER): Continue levothyroxine. Recent TSH at goal. Assessment & Plan (10/03/2017 6:33 AM CDT): Problem controlled. Continue levothyroxine. Assessment & Plan (04/04/2017 6:59 AM SHAKE FEEDER): Continue levothyroxine. Gastroesophageal reflux disease 09/18/2013 Overview [...] Type Department Care Team Description 06/21/[address] [place] [phone] Lobito Cleaning MD Medication Request 05/21/2024 10:00 AM SHAKE FEEDER Office Visit [place] [id number] [facility] [address] [place] [address] Lobito Cleaning MD Primary hypertension (Primary Dx); [...] on file Legal Sex Female 2:19 PM SHAKE FEEDER Gender Identity Not on file Sexual Orientation Not on file Obstetrics History Last Filed Vital Signs Vital Sign Reading Time Taken Comments Blood Pressure 120/62 05/21/2024 8:57 AM SHAKE FEEDER Pulse 74 05/21/2024 8:57 AM SHAKE FEEDER Temperature 36.1 C (97 F) 05/21/2024 8:57 AM SHAKE FEEDER Respiratory Rate 18 05/21/2024 8:57 AM SHAKE FEEDER Oxygen Saturation 95% 05/21/2024 8:57 AM SHAKE FEEDER Inhaled Oxygen Concentration - - Weight 101.6 kg (224 lb) 05/21/2024 8:57 AM SHAKE FEEDER Height 165.1 cm (5' 5 ) 05/21/2024 8:57 AM SHAKE FEEDER Body Mass Index 37.28 05/21/2024 8:57 AM SHAKE FEEDER Plan of Treatment Scheduled Procedures Name Priority [...] HEMOGLOBIN A1C Routine 05/21/2024 9 :08 AM SHAKE FEEDER Hyperlipidemia associated with type 2 diabetes mellitus [...] * POCT hemoglobin A1c (05/21/2024 9:08 AM SHAKE FEEDER) Hemoglobin A1C, POC 6.2 4.0 - 5.6 % Blood 05/21/2024 9:08 AM SHAKE FEEDER Lobito Cleaning MD POINT OF CARE TEST [...] ORDERABLES Final Re sult Performing Organization Address [facility] de Phone Number [facility] [place] [address] * Albumin Creatinine Ratio, Urine (01/16/2024 8:49 AM CDT) Albumin Ur <12.0 mg/L Comment: Interpretive Data No reference range established. Current interpretive data was last revised 2018. Creatinine Ur 28.6 mg/dL [facility] Comment: Interpretive Data No reference range established. Current interpretive data was last revised 2018. Albumin Creatinine Ratio, Ur See Comment 1 - 29 mg/g [facility] Comment:Unable to calculate Urine 01/16/2024 8:49 AM CDT 01/16/2024 12:29 PM CDT Lobito Cleaning MD LAB URINE ORDERABLES Final Re sult Performing Organization Address [facility] de Phone Number [facility] [place] [address] * (ABNORMAL) Lipid panel (01/16/2024 8:49 AM [...] revised on 2017. Triglycerides 186(H) <=149 mg/dL [facility] Comment: Interpretive Data Ages [...] revised on 2017. HDL 33(L) >=40 mg/dL [facility] Comment: Interpretive Data Ages [...] on 2017. LDL, calculated 135(H) <=129 mg/dL [facility] Comment: Interpretive Data Ages [...] revised on 2017. Chol/HDL ratio 6 [facility] Blood 01/16/2024 8:49 AM CDT 01/16/2024 12:29 PM CDT Lobito Cleaning MD LAB BLOOD ORDERABLES Final Re sult [facility] Department [place] [address] * Diagnostic Mammogram Bilateral W Sheila (10/14/2022 [...] FOR LIFE MEDICARE FOR LIFE Care Teams Assembler Molded Frames Relationship Specialty Start Date End Date Lobito Cleaning MD [address] [facility] [address] [place] [address] PCP - General Internal Medicine 11/02/20
--- OUTSIDE RECORDS SUMMARY | 2024-06-22 20:17 | XMS_ITS | Continuity of Care Document ---
Author Name [facility] Organization [facility] Care Team Providers Care Principal Examiner Name Role Phone [facility] Unavailable Unavailable Problems Combined list of problems [...] ORAL, AUROBINDO PHARM, 30 ea. BOTTLE Active [id number] 2023 4 Pharmac y Data Transac tion Service Facilit y AZITHROMYCI N (azithromyc in), 250 MG, TABLET, ORAL, TAGI PHARMA, 30 ea. BOTTLE Active [id number] 2023 4 Pharmac y Data Transac tion Service Facilit y AZITHROMYCI N (azithromyc in), 250 MG, TABLET, ORAL, TAGI PHARMA, 30 ea. BOTTLE Active [id number] 2023 4 Pharmac y Data Transac tion Service Facilit y azithromyci n 250 mg oral tablet 0 total refill(s ) Ordered No Facilit y Access CETIRIZINE HCL (cetirizine HCl), 10 MG, TABLET, ORAL, 'S LAB, 500 ea. BOTTLE Active [id number] 2023 30 Pharmac y Data Transac [...] or use exactly as directed . 01/02/2024 [id number] 2022 30 [facility] Kyle HYLTON ([facility]) glimepiride 4 mg oral tablet glimepir martha [...] or use exactly as directed . 01/02/2024 [id number] 2022 90 [facility] Kyle HYLTON ([facility]) LORAZEPAM (lorazepam) , 1 MG, TABLET, ORAL, AUROBINDO PHARM, 500 ea. BOTTLE Active [id number] 2023 90 Pharmac y Data Transac tion Service Facilit y LORAZEPAM (lorazepam) , 1 MG, TABLET, ORAL, AUROBINDO PHARM, 500 ea. BOTTLE Active [id number] 2023 90 Pharmac y Data Transac tion Service Facilit y LORAZEPAM (lorazepam) , 1 MG, TABLET, ORAL, AUROBINDO PHARM, 500 ea. BOTTLE Active [id number] 2023 90 Pharmac y Data Transac tion Service Facilit y LORAZEPAM (lorazepam) , 1 MG, TABLET, ORAL, TEVA [place], 500 ea. BOTTLE Cancele d [id number] : 2023 0 Pharmac y Data Transac tion Service Facilit y LORAZEPAM (lorazepam) , 1 MG, TABLET, ORAL, TEVA [place], 500 ea. BOTTLE Cancele d [id number] : 2022 0 Pharmac y Data Transac tion Service Facilit y LORAZEPAM (lorazepam) , 1 MG, TABLET, ORAL, TEVA [place], 500 ea. BOTTLE Active [id number] 2022 90 Pharmac y Data Transac tion Service Facilit y LORazepam 1 mg oral tablet LORazepa m 1 mg oral tablet Start Date: 04/25/20 Status: Ordered Ordered No Facilit y Access METOPROLOL SUCCINATE (metoprolol succinate), 25 MG, TAB ER 24H, ORAL, ACTAVIS/TEV A, 100 ea. BOTTLE Active [id number] 2023 90 Pharmac y Data Transac [...] ORAL, ALEMBIC PHARMAC, 50 ea. BOTTLE Active [id number] 2023 14 Pharmac y Data Transac [...] LABS., 30 ea. BLIST PACK Cancele d [id number] : 2023 0 Pharmac y Data Transac tion Service Facilit y PAXLOVID (EUA) (nirmatrelv ir/ritonavi r), 300-100 MG, TAB DS PK, ORAL, PFIZER LABS., 30 ea. BLIST PACK Cancele d [id number] : 2022 0 Pharmac y Data Transac tion Service Facilit y rosuvastati n 10 mg tablet 10 mg, Oral, Daily, # 30 EA, 11 total refill(s ), Hard Stop Oral (given by mouth) Complet ed 01/02/2024 30.0 Ambulat ory Pharmac y SITagliptin (U/D) 100 MG ORAL TAB Do not drink alcohol. 01/02/2024 [id number] 2022 90 [employer] Kyle HYLTON ([facility]) SITagliptin 100 mg oral tablet TAKE 1 [...] TARO PHARM [place], 30 g TUBE Active [id number] 2023 30 Pharmac y Data Transac [...] CODEINE Drug allergy (disorder) Unknown active [address] [place] [address] Kyle HYLTON ([facility]) codeine Propensity to adverse reactions to substance [...] ADM Date DC Date Status Disposition Source [facility](Al lergy Cl WR) OUTPATIENT [id number] flu shot/DEMETRIUS Munroe 04/15 Released w/o Limitations [facility]( Allergy Cl WR) [address] [place] [address] Kyle HYLTON ([facility])(War rior Op Med Cln Tm A Ad) OUTPATIENT [id number] chest pain on Apr ZARIA ENRIQUEZ 04/[address] [place] [address] [facility]W arrior Op Med Cln Tm A Ad) [employer], [place] [employer](Kvng López [facility] Team B) OUTPATIENT [id number] Notes Entered by: MALENA FERRERA 31 Dec 2019 1049 ------- ------- ------- ------- -- Rapid respons e DIANNA BOOGIE Dominique 12/30 Released w/o Limitations [employer] [place] [employer] ([facility] Team B) Procedures Combined list of: 1) Procedures from Department of Veterans Affairs facilities going back up to thelast 18 months, not all VA non-surgical procedures are included; 2) All procedures from the Department of Defense facilities. Procedure Procedure Type Code Date Perfomer Comments [facility] e Immunization Administration By Injection, One Vaccine Immunization Administration By Injection, One Vaccine [id number] 04/15/20 06 LORRAINE JJ [facility] Influenza Split Virus Vaccine 0.5mL Dosage Intramuscular 04/15/20 06 LORRAINE JJ [facility] INFLUENZA VIRUS VACCINE, TRIVALENT (IIV3), SPLIT VIRUS, 0.5 ML DOSAGE, FOR INTRAMUSCULAR USE 04/15/20 06 [facility] INJECTION, KETOROLAC TROMETHAMINE, PER 15 MG 05/04/20 05 [facility] INFLUENZA VIRUS VACCINE, TRIVALENT (IIV3), SPLIT VIRUS, 0.5 ML DOSAGE, FOR INTRAMUSCULAR USE 03/27/20 05 DoD No data available for this section Ambulato ry Pharmacy Social History Combined list of available smoking, tobacco, and other social history from Department of Defense and Veterans Affairs facilities. Social History Type Response Date Comment [facility] e Female 06/16/2020 Ambulatory Pha [...] of Defense and Veterans Affairs (VA).VA Functional Hitchcock Measurement (FIM) Scale: 1 = Total Assistance (Subject = 0% +), 2 = Maximal Assistance (Subject = 25% +), 3 = Moderate Assistance (Subject = 50% +), 4 = Minimal Assistance (Subject = 75% +), 5 = Supervision, 6 = Modified Hitchcock (Device), 7 = Complete Hitchcock (Timely, Safely). Assessment Date/Time Source Assessment Type Assessment Skill Assessment Score Assessment Details No data available for this section
--- NOTE | 2024-06-22 20:20 | ED_ITS ---
HPI - General Adult General Chief complaint: Upper Respiratory Infection Stated complaint: I have the flu; I can't breath, Wheezing Time Seen by Provider: 06/22/24 20:00 History of Present Illness HPI narrative: This is a 73-year-old female presenting with 3 days of flu-like symptoms. She hoped headache body aches and just generally feeling unwell. Starting yesterday she developed wheezing and shortness of breath. She has a sick contact at home. She has some chest pain some pain when she coughs but nothing at rest no nausea vomiting diarrhea or urinary symptoms. She has not taken anything for symptoms. Related Data Home Medications ?Medication ?Instructions ?Recorded ?Confirmed ?Last Taken ?Type amlodipine 5 mg tablet 5 mg PO DAILY 01/18/21 01/18/21 Unknown History glimepiride 2 mg tablet 2 mg PO DAILY 01/18/21 01/18/21 Unknown History levothyroxine 150 mcg tablet 175 mcg PO DAILY 01/18/21 01/18/21 Unknown History lorazepam 1 mg tablet 1 mg PO QID 01/18/21 01/18/21 Unknown History metoprolol succinate 25 mg 25 mg PO DAILY 01/18/21 01/18/21 Unknown History tablet,extended release 24 hr sitagliptin phosphate 100 mg 100 mg PO DAILY 01/18/21 01/18/21 Unknown History tablet (Januvia) Allergies Allergy/AdvReac Type Severity Reaction Status Date / Time ciprofloxacin Allergy Unknown Unknown Verified 07/07/23 09:45 codeine Allergy Unknown Unknown Verified 07/07/23 09:45 heparin Allergy Unknown Rash Verified 07/07/23 09:45 lansoprazole Allergy Unknown Unknown Verified 07/07/23 09:45 metformin Allergy Unknown Unknown Verified 07/07/23 09:45 neomycin Allergy Unknown Unknown Verified 07/07/23 09:45 Penicillins Allergy Unknown rash Verified 07/07/23 09:45 Sulfa (Sulfonamide Allergy Unknown Unknown Verified 07/07/23 09:45 Antibiotics) enoxaparin Allergy Flushing Verified 07/07/23 09:45 metronidazole Allergy Unknown Verified 07/07/23 09:45 shellfish derived Allergy Unknown Verified 07/07/23 09:45 ANTIDEPRESSANTS Allergy Unknown Unknown Uncoded 07/07/23 09:45 Contrast Media Allergy Unknown Unknown Uncoded 07/07/23 09:45 ESOMEPRAZOLE MAG Allergy Unknown Unknown Uncoded 07/07/23 09:45 PMFSH Past Medical History Medical History History of hypothyroidism History of diabetes mellitus History of hypertension Family History Family History Other Diabetes mellitus Family history of cardiovascular disease Social History Social History Smoking status: Current every day smoker Alcohol intake: never Exam 2 Narrative: APPEARANCE: No apparent distress. Head: atraumatic. EYES: EOMI, NOSE: Atraumatic NECK: Trachea midline RESPIRATORY: No increased rate of breathing wheezing, speaking full sentences CARDIOVASCULAR: RRR, no peripheral edema ABDOMINAL: Non-distended soft nontender MUSCULOSKELETAl: No obvious deformities NEURO: Alert. Moving 4/4 extremities SKIN:: Warm, dry. Normal color PSYCHIATRIC: Normal affect Course Vital Signs Vital signs: Vital Signs Temperature 98.2 F 06/22/24 19:33 Pulse Rate 63 06/22/24 19:33 Respiratory Rate 17 06/22/24 19:33 Blood Pressure 133/69 06/22/24 19:33 Pulse Oximetry 98 06/22/24 19:33 Oxygen Delivery Room Air 06/22/24 19:33 Temperature 98.2 F 06/22/24 19:33 Pulse Rate 85 06/22/24 21:45 Respiratory Rate 18 06/22/24 21:45 Blood Pressure 129/59 L 06/22/24 21:17 Pulse Oximetry 99 06/22/24 21:45 Oxygen Delivery Room Air 06/22/24 19:52 Medical Decision Making [facility] Narrative Medical decision making narrative: -Course: 73-year-old female presenting flu-like symptoms. She has had a positive test in the last 2 days. Patient is wheezing on exam. Given breathing treatment with improvement respiratory status. Laboratory studies chest x-ray within normal limits. Vital signs stable. Ambulatory pulse ox performed without desaturations or increased heart rate. Discussed admission versus discharge patient is comfortable home. She will be given a albuterol inhaler and a course of steroids. -DDX includes but is not limited to: Viral syndrome, pneumonia, reactive airway disease Vital Signs Vital Signs: Vital Signs Temperature 98.2 F 06/22/24 19:33 Pulse Rate 63 06/22/24 19:33 Respiratory Rate 17 06/22/24 19:33 Blood Pressure 133/69 06/22/24 19:33 Pulse Oximetry 98 06/22/24 19:33 Oxygen Delivery Room Air 06/22/24 19:33 Temperature 98.2 F 06/22/24 19:33 Pulse Rate 85 06/22/24 21:45 Respiratory Rate 18 06/22/24 21:45 Blood Pressure 129/59 L 06/22/24 21:17 Pulse Oximetry 99 06/22/24 21:45 Oxygen Delivery Room Air 06/22/24 19:52 Lab Data 06/22/24 20:37 06/22/24 20:37 Labs: Lab Results 06/22/24 Range/Units 20:37 WBC 6.0 (4.5-10.0) K/mm3 RBC 4.66 (4.2-5.4) M/mm3 Hgb 12.1 (12.0-15.0) g/dL Hct 38.3 (37.0-47.0) % MCV 82.2 (80-100) fl MCH 26.0 (26-34) pg MCHC 31.6 L (32-36) g/dl RDW 14.6 H (11.5-14.5) % Plt Count 241 (150-375) k/mm3 MPV 10.2 (7.4-10.4) fl Immature Gran % (Auto) 0.2 (0-0.5) % Neut % (Auto) 44.2 L (45.5-73.1) % Lymph % (Auto) 37.9 (18.3-44.2) % [place] % (Auto) 13.2 H (2.6-8.5) % Eos % (Auto) 3.3 (0-4.4) % Baso % (Auto) 1.2 (0.2-1.2) % Lymph # (Auto) 2.27 (0.9-3.2) K/mm3 [place] # (Auto) 0.8 H (0.1-0.6) K/mm3 Eos # (Auto) 0.2 (0-0.3) K/mm3 Baso # (Auto) 0.1 (0.0-0.1) K/mm3 Abs Immat Gran (auto) 0.01 (0.00-0.031) K/mm3 Absolute Neuts (auto) 2.7 (1.3-6.7) K/mm3 Absolute Nucleated RBC 0.000 (0.0-0.012) K/mm3 Nucleated RBC % 0.0 (0.0-0.2) % Sodium 137 (137-145) mmol/L Potassium 3.7 (3.4-5.0) mmol/L Chloride 101 (98-107) mmol/L Carbon Dioxide 28 (22-30) mmol/L Anion Gap 8 (4-12) mmol/L BUN 16 (7-17) mg/dL Creatinine 0.61 L (0.7-1.0) mg/dL Estim Creat Clear Calc 83 ml/min Estimated GFR > 60 (59 - ) Glucose 109 (65-110) mg/dL Calcium 9.3 (8.4-10.2) mg/dL Magnesium 2.0 (1.6-2.3) mg/dL Total Bilirubin 0.4 (0.2-1.3) mg/dL AST 38 H (14-36) U/L ALT 29 (6-35) U/L Alkaline Phosphatase 74 (38-126) U/L Total Protein 8.0 (6.3-8.2) g/dL Albumin 4.0 (3.5-5.1) g/dL Discharge Plan Discharge Clinical Impression: Flu, Wheezing Patient Disposition: Home, Self-Care Condition: Stable Instructions: Antibiotic Form, Influenza (DC) Additional Instructions: You were seen in the emergency department for flu. Please use the breathing treatments every 4 hours as needed. Please complete a course of steroids for wheezing. Please follow-up your primary care physician for further management. If you develop shortness of breath or feel like her condition is getting worse please return to the ED for re-evaluation. Patient Language: Nicaraguan Prescriptions: New albuterol sulfate [Ventolin HFA] 90 mcg/actuation HFA aerosol inhaler 1 inh inhalation Q4-6H PRN (Reason: shortness of breath or wheezing) Qty: 8.5 0RF prednisone 50 mg tablet 50 mg PO DAILY Qty: 5 0RF No Action amlodipine 5 mg tablet 5 mg PO DAILY glimepiride 2 mg tablet 2 mg PO DAILY levothyroxine 150 mcg tablet 175 mcg PO DAILY metoprolol succinate 25 mg tablet extended release 24 hr 25 mg PO DAILY lorazepam 1 mg tablet 1 mg PO QID Januvia 100 mg tablet 100 mg PO DAILY phenazopyridine [Pyridium] 200 mg tablet 200 mg PO TID PRN (Reason: pain) Qty: 6 0RF nitrofurantoin monohyd/m-cryst [Macrobid] 100 mg capsule 100 mg PO Q12H 5 Days Qty: 10 0RF Rx Instructions: must administer with a meal/food cetirizine [Zyrtec] 10 mg tablet 10 mg PO DAILY Qty: 30 0RF azithromycin 250 mg tablet 250 mg PO DAILY 4 Days Qty: 4 0RF Rx Instructions: start on day 2 of therapy triamcinolone acetonide 0.1 % ointment 1 applic topical BID Qty: 30 0RF Follow-up/Referrals: Hermila,Lobito Banegas MD [Primary Care Provider] -
[2024-06-22] MEDS: MAGNESIUM SULF 2 GM/WATER 50ML 2 GM/50 ML BAG IVPB (20:34)
[2024-06-22] MEDS: SODIUM CHLORIDE 0.9% IV 1,000 ML 999 ML IV CONT (20:34)
[2024-06-22] MEDS: methylPREDNISolone SOD SUCC 125 MG VIAL IV PUSH (20:34)
[2024-06-22] MEDS: ACETAMINOPHEN 500 MG TABLET 1000 MG PO (20:35)
[2024-06-22 20:48] LABS: Basophils Absolute Auto 0.1 K/mm3 (0.0-0.1); Basophils Percent Auto 1.2 % (0.2-1.2); Eosinophils Absolute Auto 0.2 K/mm3 (0-0.3); Eosinophils Percent Auto 3.3 % (0-4.4); Hematocrit 38.3 % (37.0-47.0); Hemoglobin 12.1 g/dL (12.0-15.0); Immature Granulocyte Absolute 0.01 K/mm3 (0.00-0.031); Immature Granulocyte Percent A 0.2 % (0-0.5); Lymphocytes Absolute Auto 2.27 K/mm3 (0.9-3.2); Lymphocytes Percent Auto 37.9 % (18.3-44.2); Mean Corpuscular HGB Conc 31.6 g/dl (32-36); Mean Corpuscular Volume 82.2 fl (80-100); Mean Platelet Volume 10.2 fl (7.4-10.4); Monocytes Absolute Auto 0.8 K/mm3 (0.1-0.6); Monocytes Percent Auto 13.2 % (2.6-8.5); Neutrophils Absolute Auto 2.7 K/mm3 (1.3-6.7); Neutrophils Percent Auto 44.2 % (45.5-73.1); Platelet Count Result 241 k/mm3 (150-375); Red Blood Count 4.66 M/mm3 (4.2-5.4); Red Cell Distribution Width 14.6 % (11.5-14.5)
[2024-06-22 20:58] LABS: Alanine Aminotransferase 29 U/L (6-35); Alkaline Phosphatase 74 U/L (38-126); Anion Gap 8 mmol/L (4-12); Aspartate Amino Transferase 38 U/L (14-36); Bilirubin,Total 0.4 mg/dL (0.2-1.3); Blood Urea Nitrogen 16 mg/dL (7-17); Calcium 9.3 mg/dL (8.4-10.2); Carbon Dioxide 28 mmol/L (22-30); Chloride 101 mmol/L (98-107); Estimated CRCL calculation 83 ml/min; Estimated Glomerular Filt Rate > 60; Glucose 109 mg/dL (65-110); Potassium 3.7 mmol/L (3.4-5.0); Sodium 137 mmol/L (137-145)
[2024-06-22] MEDS: IPRATROPIUM 0.5 MG/ALBUTEROL SULFATE 2.5 MG AMPUL.NEB 3 ML 12 ML INHALATION (20:58)
--- NOTE | 2024-06-22 22:06 | PC.NURSE ---
pt ambulates with pulse ox and hr stayed between 80-84, oxygen saturation between 95-98% on room air with mask on.
== END 2024-06-22 22:40 | disposition home or self-care (01) ==
PROVIDERS: Emergency Provider Emergency Medicine; PCP Internal Medicine
DX: J11.1 Influenza due to unidentified influenza virus with other respiratory manifestations (principal); R06.2 Wheezing; E03.9 Hypothyroidism, unspecified; E11.9 Type 2 diabetes mellitus without complications; I10 Essential (primary) hypertension
CPT/HCPCS: 36415; 71045; 80053; 83735; 85025; 94640; 96361; 96365; 96375; 99284; A9270; J2919; J3475; J7030

== ENCOUNTER 2024-08-15 19:47 | Emergency (ER) | payer MEDICARE, OTHER, SELFPAY ==
--- NOTE | ~2024-08-15 | XR_ITS ---
EXAMINATION: XR chest 2V Exam Date/Time: 08/15/2024 20:09 CDT HISTORY: cough Comparison: 06/22/2024, 06/21/2024. RESULT: Lines, tubes, and devices: Cholecystectomy clips. Lungs and pleura: No focal consolidation, pleural effusion, or pneumothorax. Mild diffuse reticular opacities and indistinct vessels. Cardiomediastinal silhouette: Stable. Other: No acute osseous or upper abdominal finding. IMPRESSION: Pulmonary vascular congestion, otherwise no acute cardiopulmonary process. Reviewed, dictated and finalized at location [facility].
--- OUTSIDE RECORDS SUMMARY | 2024-08-15 19:50 | XMS_ITS | CONTINUITY OF CARE DOCUMENT ---
Author Name wily julien Address Unknown Organization [facility] Address [address] [place] [address] Phone [phone] Care Team Providers Care Plastic Surgery Manager Name Role Phone Baljit Caldwell MD Unavailable [phone] Baljit Caldwell MD Unavailable [phone] INSURANCE PROVIDERS Payer name Policy type / Coverage type Patrice red [employer] party ID [facility] [employer] [id number] [place] [employer] Medicare [id number]
--- OUTSIDE RECORDS SUMMARY | 2024-08-15 19:51 | XMS_ITS | Referral Summary ---
Author Organization [facility] Address [address] [place] [address] Care Team Providers Care Director Of Research Name Role Phone Lobito Cleaning MD Primary Care Provider [phone] Encounters Date Type Department Care Team Description 06/25/2024 9:30 AM LANDSCAPER HELPER Office Visit [address] [address] Lobito Cleaning MD Influenza A with respiratory manifestations (Primary Dx); Primary hypertension; Hyperlipidemia associated with type 2 diabetes mellitus (HCC); Acute bronchitis, unspecified organism; Severe obesity (HCC); Class 2 severe obesity with serious comorbidity and body mass index (BMI) of 38.0 to 38.9 in adult, unspecified obesity type (HCC) 06/23/2024 Orders Only [facility] Health Information Management [address] [place] [id number] Scanning, Provider 06/21/[address] [address] Lobito Cleaning MD Medication Request 05/21/2024 10:00 AM LANDSCAPER HELPER Office Visit [address] [address] Lobito Cleaning MD Primary hypertension (Primary [...] mg total) by mouth daily 30 tablet 11 3 Active Additional Information Patient not taking.Reported on 09/04/2023 albuterol HFA (PROVENTIL HFA,VENTOLIN HFA,PROAIR HFA) 90 mcg/actuation inhaler Inhale 2 puffs every 4 (four) hours as needed for wheezing 1 each 3 Active alcohol swabs (Alcohol Pads) pads, medicatedIndica tions:Diabetes mellitus due to underlying condition with hyperglycemia, without long-term current use of insulin ([facility]) 100 each by other route once a week Use for Trulicity injection weekly. 100 each 1 4 Active blood-glucose meter kitIndications: Diabetes mellitus due to underlying condition with hyperglycemia, without long-term current use of insulin ([facility]) Use daily or as directed for monitoring of diabetes 1 kit 4 Active blood glucose diagnostic stripIndication s:Diabetes mellitus due to underlying condition with hyperglycemia, without long-term current use of insulin ([facility]) 1 each by other route 2 (two) times a day before lunch and dinner 180 each 4 09/05/19 25 Active lancets 31 gauge miscIndications :Diabetes mellitus due to underlying condition with hyperglycemia, without long-term current use of insulin ([facility]) 1 strip 2 (two) times a [...] the skin once a week 2 mL 4 Active LORazepam (ATIVAN) 1 mg tabletIndicatio ns:Anxiety TAKE 1 TABLET(1 MG) BY MOUTH EVERY 8 HOURS NEEDED FOR ANXIETY 90 tablet 3 4 Active Active Problems Problem Noted Date Diagnosed Date Influenza A with respiratory manifestations 06/06 Assessment & Plan (06/25/2024 5:05 AM LANDSCAPER HELPER): Reviewed normal chest XRAY. Continue bronchodilators and supportive care. Acute bronchitis 06/25/2024 Assessment & Plan (06/25/2024 8:40 AM LANDSCAPER HELPER): Schedule albuterol. Complete prednisone. Treat secondary infection with ZPAK. Severe obesity 06/25/2024 Fatigue 11/13/2023 Assessment & Plan (11/13/2023 6:15 AM CDT): Likely from uncontrolled diabetes. Repeat TSH. Order B12, CK. Chronic bilateral low back pain without sciatica 11/13/2023 Assessment & Plan (11/13/2023 3:56 PM CDT): Refer for PT. Dysphagia 11/13/2023 Cellulitis of right anterior lower leg Assessment & Plan (07/09/2023 8:54 AM LANDSCAPER HELPER): Symptoms are improved. Complete antibiotics and continue steroid cream. Palpitations 07/09/2023 Assessment & Plan (05/21/2024 9:21 AM LANDSCAPER HELPER): Reorder holter monitor. Reviewed normal TSH. Assessment & Plan (07/09/2023 8:58 AM LANDSCAPER HELPER): Order monitor. Await TSH. She is intolerant of CPAP. Essential hypertension 01/01/2023 Assessment & Plan (03/02/2024 6:36 AM CDT): Hypertension is controlled. Continue current regimen. Assessment & Plan (01/02/2023 3:40 PM CDT): Hypertension is controlled. Continue current regimen. Morbid (severe) obesity due to excess calories 0 01/28/2022 Body mass index 40.0-44.9, adult ([facility]) 01/28 Chest pain 01/28/2022 Assessment & Plan [...] prn. Assessment & Plan (05/31/2021 2:39 PM LANDSCAPER HELPER): -PVR was low today at 15mL. -Reports only feeling this when she believes she has UTI. -No current symptoms. Acute cystitis without hematuria 05/31/2021 Assessment & Plan (05/31/2021 2:40 PM LANDSCAPER HELPER): -Most recent UA done by PCP showing [...] 04/26/2021 Assessment & Plan (04/26/2021 10:11 AM LANDSCAPER HELPER): Reviewed CXR. Order Chest CT. Dysuria 04/25/2021 Assessment & Plan (11/29/2021 2:44 PM CDT): -Has increased water intake. -No issues with dysuria or UTI-like symptoms since initial office visit. PLAN: -Continue with adequate water intake. -Reduce soda intake. Assessment & Plan (04/26/2021 10:07 AM LANDSCAPER HELPER): Order UA. reviewed urinary hygiene. Treat with macrobid and await culture. Diarrhea of infectious origin 01/29/2021 Assessment & Plan (01/29/2021 9:48 AM CDT): Likely C.dif and antibiotic related. Start metronidazole. Cellulitis of buttock 01/29/2021 Assessment & Plan (01/29/2021 9:51 AM CDT): Cellulitis improved with antibiotics. Rash 01/28/2021 Screen for colon cancer 01/02/2021 Overview (01/02/2021): Added automatically from request for surgery [id number] Chronic right shoulder pain 10/05/2018 Assessment & Plan (10/05/2018 10:41 AM CDT): Reviewed ROM exercises for scapular pain. Class 3 severe obesity due t o excess calories with serious comorbidity and body mass index (BMI) of 40.0 to 44.9 in adult 04/21/2018 Assessment & Plan (04/26/2021 10:18 AM LANDSCAPER HELPER): BMI is more than 40, reviewed calorie restrictions. Assessment & Plan (04/21/2018 8:56 AM LANDSCAPER HELPER): BMI is more than 40, reviewed calorie restrictions. Diastolic heart failure secondary to hypertensio n 10/03/2017 Assessment & Plan (04/21/2018 6:47 AM LANDSCAPER HELPER): Hypertension is controlled. Continue current regimen.CHF compensated. Continue current regimen. Reviewed low sodium diet. Assessment & Plan (10/03/2017 6:32 AM CDT): Hypertension is controlled. Continue current regimen. CHF compensated. Continue current regimen. Reviewed low sodium diet. H/O adenomatous polyp of colon 10/03/2017 Assessment & Plan (10/03/2017 6:38 AM CDT): Advised colonoscopy. Hyperlipidemia associated with type 2 diabetes larry timoteo 04/04/2017 Assessment & Plan (06/25/2024 5:05 AM LANDSCAPER HELPER): Reviewed recent HgbA1C was improved. Continue Trulicity. Advised rosuvastatin for hyperlipidemia. Assessment & Plan (05/21/2024 9:13 AM LANDSCAPER HELPER): Reviewed recent HgbA1C was improved to 6.2. [...] rosuvastatin. Assessment & Plan (07/09/2023 5:51 AM LANDSCAPER HELPER): Her diabetes is uncontrolled;I advised her to follow with Endocrinology. Continue Januvia and glimepiride. Diabetes is complicated by hyperlipidemia;I advised a statin. Assessment & Plan (01/02/2023 3:37 PM CDT): Her diabetes is uncontrolled;I advised her to follow with Endocrinology. Continue Januvia and resume glimepiride. Diabetes is complicated by hyperlipidemia;I advised a statin. Assessment & Plan (05/31/2022 6:18 AM LANDSCAPER HELPER): She does not have an appointment with [...] control. Assessment & Plan (04/25/2021 11:55 AM LANDSCAPER HELPER): Reviewed HgbA1C was elevated at 7.5 on 11/02/20. Diabetes is not controlled. Continue current regimen and monitor diet. Reviewed dietary goals for elevated triglycerides,. Assessment & Plan (10/05/2018 6:41 AM CDT): Reviewed proper diet for elevated triglycerides. Assessment & Plan (04/21/2018 6:48 AM LANDSCAPER HELPER): Reviewed proper diet. Continue diet for elevated triglycerides. Assessment & Plan (10/03/2017 6:33 AM CDT): Reviewed proper diet for hyperlipidemia. Continue Diabetic regimen. Advised annual eye exam. Assessment & Plan (04/04/2017 9:27 AM LANDSCAPER HELPER): Reviewed proper diet. She will consider statin therapy. Morbid obesity 04/04/2017 Assessment & Plan (04/04/2017 9:20 AM LANDSCAPER HELPER): BMI is more than 40. Encouraged weight loss. Hypertension 10/07/2013 Assessment & Plan (06/25/2024 5:05 AM LANDSCAPER HELPER): Hypertension is controlled. Continue current regimen. Assessment & Plan (05/21/2024 5:41 AM LANDSCAPER HELPER): Hypertension is controlled. Continue current regimen. Assessment & Plan (01/16/2024 5:35 AM CDT): Hypertension is controlled. Continue current regimen. Assessment & Plan (11/13/2023 6:15 AM CDT): Hypertension is controlled. Continue current regimen. Assessment & Plan (07/09/2023 5:51 AM LANDSCAPER HELPER): Hypertension is controlled. Continue current regimen. Assessment & Plan (05/31/2022 6:17 AM LANDSCAPER HELPER): Hypertension is controlled. Continue current regimen. Assessment [...] 04/06/21. Assessment & Plan (04/25/2021 11:54 AM LANDSCAPER HELPER): Hypertension is controlled. Continue current regimen. Assessment & Plan (10/05/2018 6:41 AM CDT): Hypertension is controlled. Continue current regimen. Assessment & Plan (04/04/2017 6:58 AM LANDSCAPER HELPER): Hypertension is controlled. Continue current regimen. Type 2 diabetes mellitus wit h hyperglycemia, without long-term current use of insulin ([facility]) 10/07/2013 Assessment & Plan (01/28/2021 9:10 AM CDT): Reviewed HgbA1C was elevated at 7.5 on 11/02/20. Diabetes is not controlled. Continue current regimen and monitor diet. Assessment & Plan (10/05/2018 6:42 AM CDT): Continue glimepiride. Continue diet for elevated triglycerides. Assessment & Plan (04/21/2018 6:50 AM LANDSCAPER HELPER): Last Hgba1C was elevated. Continue current regimen. Assessment & Plan (04/04/2017 6:59 AM LANDSCAPER HELPER): Continue current regimen. Advised annual eye exam. Reviewed proper diet. Continue statin therapy. Generalized anxiety disorder 09/18/2013 Overview (08/07/2016): GENERALIZED ANXIETY DIS Assessment & Plan (01/01/2023 8:12 AM CDT): Continue lorazepam as needed. She declines a SSRI. Hypothyroidism 09/18/2013 Overview (08/09/2016): HYPOTHYROIDISM NOS Assessment & Plan (05/21/2024 5:41 AM LANDSCAPER HELPER): Continue levothyroxine. Assessment & Plan (03/02/2024 6:36 AM CDT): Continue levothyroxine. Assessment & Plan (01/16/2024 5:35 AM CDT): Continue levothyroxine. Order labs. Assessment & Plan (11/13/2023 6:15 AM CDT): Continue levothyroxine. Assessment & Plan (07/09/2023 5:51 AM LANDSCAPER HELPER): Continue levothyroxine and Endocrinology care. Assessment & Plan (01/01/2023 8:12 AM CDT): Continue levothyroxine and Endocrinology care. Assessment & Plan (05/31/2022 6:17 AM LANDSCAPER HELPER): Continue levothyroxine and Endocrinology care. Assessment & Plan (01/28/2022 7:04 AM CDT): Continue levothyroxine and Endocrinology care. Assessment & Plan (09/13/2021 9:06 AM CDT): Continue levothyroxine. Assessment & Plan (07/26/2021 9:41 AM CDT): Continue levothyroxine. Order TSH. Assessment & Plan (04/25/2021 11:54 AM LANDSCAPER HELPER): Reviewed normal TSH 11/02/20. Continue levothyroxine. Assessment & Plan (01/28/2021 9:09 AM CDT): Reviewed normal TSH 11/02/20. Continue levothyroxine. Assessment & Plan (10/05/2018 6:42 AM CDT): Continue levothyroxine. Assessment & Plan (04/21/2018 6:49 AM LANDSCAPER HELPER): Continue levothyroxine. Recent TSH at goal. Assessment & Plan (10/03/2017 6:33 AM CDT): Problem controlled. Continue levothyroxine. Assessment & Plan (04/04/2017 6:59 AM LANDSCAPER HELPER): Continue levothyroxine. Gastroesophageal reflux disease 09/18/2013 Overview [...] of foot 08/17/2012 10/03/2017 Feces contents abnormal 12/17/2011 06/0 05/2017 Diabetes mellitus 06/21/2011 10/03/2017 Immunizations Immunization Administration [...] Pfizer Sars-Cov-2 Bivalent V accination (12+ YRS) 02/24/2024,02/25/2023 Tdap 07/06/2012,07/06/2012 Social History Tobacco Use Types [...] points, staff should administer the PHQ-9) 0 06/25/2024 Personal Safety Answer Date Recorded Have you ever been in or are you currently in a harmful physical or emotional relationship or is someone making you feel afraid or unsafe? Denies 11/10/2023 Comments No Sex and Gender Information Value Date Recorded Sex Assigned at Not on file Legal Sex Female 2:19 PM LANDSCAPER HELPER Gender Identity Not on file Sexual Orientation Not on file Last Filed Vital Signs Vital Sign Reading Time Taken Comments Blood Pressure 132/58 06/25/2024 8:33 AM LANDSCAPER HELPER Pulse 81 06/25/2024 8:33 AM LANDSCAPER HELPER Temperature 36.1 C (97 F) 06/25/2024 8:33 AM LANDSCAPER HELPER Respiratory Rate 18 06/25/2024 8:33 AM LANDSCAPER HELPER Oxygen Saturation 97% 06/25/2024 8:33 AM LANDSCAPER HELPER Inhaled Oxygen Concentration - - Weight 106.1 kg (234 lb) 06/25/2024 8:33 AM LANDSCAPER HELPER Height 165.1 cm (5' 5 ) 06/25/2024 8:33 AM LANDSCAPER HELPER Body Mass Index 38.94 06/25/2024 8:33 AM LANDSCAPER HELPER Plan of Treatment Scheduled Procedures Name Priority Associated Diagnoses Date/Ti me ESOPHAGOGASTRODUODENOSCOPY Open Access Dysphagia, unspecified type COLONOSCOPY Screen for colon cancer Procedures Procedure Name Priority Date/Time Associated Diagnosis Comments SCAN - RADIOLOGY/IMAGING 06/23/2024 8:36 AM LANDSCAPER HELPER POCT HEMOGLOBIN A1C Routine 05/21/2024 9 :08 AM LANDSCAPER HELPER Hyperlipidemia associated with type 2 diabetes mellitus [...] Recently Relevant to Health Maintenance Results * SCAN - RADIOLOGY/IMAGING (06/23/2024 8:36 AM LANDSCAPER HELPER) Anatomical Region Laterality Modality Other us Provider Scanning Final Result * POCT hemoglobin A1c (05/21/2024 9:08 AM LANDSCAPER HELPER) Hemoglobin A1C, POC 6.2 4.0 - 5.6 % Blood 05/21/2024 9:08 AM LANDSCAPER HELPER Lobito Cleaning MD POINT OF CARE TEST [...] ORDERABLES Final Re sult Performing Organization Address [facility] Co de Phone Number [facility] [place] [address] * Albumin Creatinine Ratio, Urine (01/16/2024 8:49 AM CDT) Albumin Ur <12.0 mg/L Comment: Interpretive Data No reference range established. Current interpretive data was last revised 2018. Creatinine Ur 28.6 mg/dL [facility] Comment: Interpretive Data No reference range established. Current interpretive data was last revised 2018. Albumin Creatinine Ratio, Ur See Comment 1 - 29 mg/g [facility] Comment:Unable to calculate Urine 01/16/2024 8:49 AM CDT 01/16/2024 12:29 PM CDT Lobito Cleaning MD LAB URINE ORDERABLES Final Re sult Performing Organization Address [facility] Co de Phone Number [facility] [place] [address] * (ABNORMAL) Lipid panel (01/16/2024 8:49 AM [...] revised on 2017. Triglycerides 186(H) <=149 mg/dL [facility] Comment: Interpretive Data Ages < or [...] revised on 2017. HDL 33(L) >=40 mg/dL [facility] Comment: Interpretive Data Ages < or [...] on 2017. LDL, calculated 135(H) <=129 mg/dL [facility] Comment: Interpretive Data Ages < or [...] on 2023. Non-HDL Cholesterol 169 mg/dL [facility] Comment: Interpretive Data Ages < or [...] last revised on 2017. Chol/HDL ratio 6 [facility] Blood 01/16/2024 8:49 AM CDT 01/16/2024 12:29 PM CDT us Lobito Cleaning MD LAB BLOOD ORDERABLES Final Re sult [facility] [place] [address] * Diagnostic Mammogram Bilateral W Sheila (10/14/2022 [...] MEDICARE FOR LIFE MEDICARE FOR LIFE MEDICARE [facility] Address: [address] [address] [place] [address] FOR LIFE Care Teams Director Of Research Relationship Specialty Start Date End Date Lobito Cleaning MD [id number] [facility] [address] [place] [address] PCP - General Internal Medicine 11/02/20
--- OUTSIDE RECORDS SUMMARY | 2024-08-15 19:51 | XMS_ITS | Continuity of Care Document ---
Author Name [facility] Organization [facility] Care Team Providers Care Assembly Hand Name Role Phone [facility] Unavailable Unavailable Medications Combined list of outpatient medications from [...] refill(s ), Hard Stop Complet ed 01/02/2024 3 2023 8.5 Ambulat ory Pharmac y amLODIPine 5 mg oral tablet amLODIPi ne 5 mg oral tablet Start Date: 01/06/20 Status: Ordered Repeat number: 1 Ordered 2020 No Facilit y Access amLODIPine 5 mg tablet See Instruct ions, Oral, Daily, # 90 EA, 1 total refill(s ), Hard Stop Oral (given by mouth) Discont inued 09/04/2023 4 2023 90.0 Ambulat ory Pharmac y amLODIPine 5 mg tablet 5 mg, Oral, Daily, # 90 EA, 3 total refill(s ), Hard Stop Oral (given by mouth) Ordered 11/12/2024 5 2024 90.0 Ambulat ory Pharmac y amLODIPine 5 mg tablet 5 mg, Oral, Daily, # 90 EA, 0 total refill(s ), Hard Stop Oral (given by mouth) Complet ed 01/02/2024 3 2023 90.0 Ambulat ory Pharmac y azithromyci n 250 mg oral tablet 0 total refill(s ) Ordered 2020 No Facilit y Access azithromyci n 250 mg oral tablet 0 total refill(s ) Ordered 2020 No Facilit y Access azithromyci n 250 mg oral tablet 0 total refill(s ) Ordered 2020 No Facilit y Access azithromyci n 250 mg oral tablet 0 total refill(s ) Ordered 2020 No Facilit y Access clindamycin 150 mg oral capsule 0 total refill(s ) Ordered 2020 No Facilit y Access clindamycin 300 mg oral capsule 0 total refill(s ) Ordered 2020 No Facilit y Access clindamycin 300 mg oral capsule 0 total refill(s ) Ordered 2020 No Facilit y Access dulaglutide 0.75 mg/0.5 mL subcutaneou s solution INJECT 0.75MG SUB-CUTA NEOUSLY ONCE WEEKLY, # 4 mL, 2 total refill(s ), Acute Complet ed 11/14/20222022 4.0 Ambulat ory Pharmac y famotidine 40 mg tablet 40 mg, Oral, Daily, # 90 EA, 3 total refill(s ), Hard Stop Oral (given by mouth) Ordered 11/12/2024 2023 90.0 Ambulat ory Pharmac y fluticasone 50 mcg/inh nasal spray fluticas one 50 mcg/inh nasal spray Start Date: 11/10/19 Status: Ordered Repeat number: 1 Ordered 2020 No Facilit y Access glimepiride 4 mg oral tablet glimepir martah 4 mg oral tablet Start Date: 01/06/20 Status: Ordered Repeat number: 1 Ordered 2020 No Facilit y Access glimepiride 4 mg oral tablet glimepir martha 4 mg oral tablet Start Date: 01/07/20 Status: Ordered Repeat number: 1 Ordered 2020 No Facilit y Access glimepiride 4 mg tablet 4 mg, Oral, Daily, # 90 EA, 3 total refill(s ), Hard Stop Oral (given by mouth) Discont inued 01/16/2024 4 2023 90.0 Ambulat ory Pharmac y glimepiride 4 mg tablet 4 mg, Oral, Daily, # 30 EA, 11 total refill(s ), Hard Stop Oral (given by mouth) Complet ed 01/02/2024 4 2023 30.0 Ambulat ory Pharmac y Januvia 100 mg tablet 100 mg, Oral, Daily, # 90 EA, 3 total refill(s ), Hard Stop Oral (given by mouth) Complet ed 01/05/2021 1 2020 90.0 Ambulat ory Pharmac y Januvia 100 mg tablet 100 mg, Oral, Daily, # 90 EA, 3 total refill(s ), Hard Stop, JENNIFER Oral (given by mouth) Discont inued 09/05/2023 4 2023 90.0 Ambulat ory Pharmac y levothyroxi ne (Synthroid) 175 mcg tablet See dose instruct ions in comments , # 90 EA, 1 total refill(s ), Acute Complet ed 02/06/2023 3 2022 90.0 Ambulat ory Pharmac y levothyroxi ne (Synthroid) 175 mcg tablet 175 mcg, Oral, Daily, # 90 EA, 3 total refill(s ), Hard Stop Oral (given by mouth) Ordered 11/12/2024 5 2024 90.0 Ambulat ory Pharmac y levothyroxi ne (Synthroid) 175 mcg tablet 175 mcg, Oral, Daily, # 90 EA, 3 total refill(s ), Hard Stop Oral (given by mouth) Complet ed 01/02/2024 4 2023 90.0 Ambulat ory Pharmac y levothyroxi ne 150 mcg oral tablet levothyr oxine 150 mcg oral tablet Start Date: 01/07/20 Status: Ordered Repeat number: 1 Ordered 2020 No Facilit y Access levothyroxi ne 150 mcg oral tablet levothyr oxine 150 mcg oral tablet Start Date: 01/29/20 Status: Ordered Repeat number: 1 Ordered 2020 No Facilit y Access levothyroxi ne 150 mcg oral tablet levothyr oxine 150 mcg oral tablet Start Date: 04/25/20 Status: Ordered Repeat number: 1 Ordered 2020 No Facilit y Access levothyroxi ne 175 mcg oral tablet levothyr oxine 175 mcg oral tablet Start Date: 04/25/20 Status: Ordered Repeat number: 1 Ordered 2020 No Facilit y Access LORazepam 1 mg oral tablet LORazepa m 1 mg oral tablet Start Date: 04/25/20 Status: Ordered Repeat number: 1 Ordered 2020 No Facilit y Access LORazepam 1 mg oral tablet LORazepa m 1 mg oral tablet Start Date: 05/28/20 Status: Ordered Repeat number: 1 Ordered 2020 No Facilit y Access LORazepam 1 mg oral tablet LORazepa m 1 mg oral tablet Start Date: 03/23/20 Status: Ordered Repeat number: 1 Ordered 2020 No Facilit y Access LORazepam 1 mg oral tablet LORazepa m 1 mg oral tablet Start Date: 10/02/19 Status: Ordered Repeat number: 1 Ordered 2020 No Facilit y Access LORazepam 1 mg oral tablet LORazepa m 1 mg oral tablet Start Date: 11/14/19 Status: Ordered Repeat number: 1 Ordered 2020 No Facilit y Access LORazepam 1 mg oral tablet LORazepa m 1 mg oral tablet Start Date: 01/07/20 Status: Ordered Repeat number: 1 Ordered 2020 No Facilit y Access LORazepam 1 mg oral tablet LORazepa m 1 mg oral tablet Start Date: 02/15/20 Status: Ordered Repeat number: 1 Ordered 2020 No Facilit y Access LORazepam 1 mg oral tablet LORazepa m 1 mg oral tablet Start Date: 10/17/19 Status: Ordered Repeat number: 1 Ordered 2020 No Facilit y Access LORazepam 1 mg oral tablet LORazepa m 1 mg oral tablet Start Date: 06/13/19 Status: Ordered Repeat number: 1 Ordered 2020 No Facilit y Access LORazepam 1 mg oral tablet LORazepa m 1 mg oral tablet Start Date: 07/25/19 Status: Ordered Repeat number: 1 Ordered 2020 No Facilit y Access LORazepam 1 mg oral tablet LORazepa m 1 mg oral tablet Start Date: 09/14/19 Status: Ordered Repeat number: 1 Ordered 2020 No Facilit y Access LORazepam 1 mg oral tablet LORazepa m 1 mg oral tablet Start Date: 04/05/19 Status: Ordered Repeat number: 1 Ordered 02/12/ 2021 No Facilit y Access LORazepam 1 mg oral tablet LORazepa m 1 mg oral tablet Start Date: 05/07/19 Status: Ordered Repeat number: 1 Ordered 2020 No Facilit y Access metoprolol succinate 25 mg oral tablet, extended release metoprol ol succinat e 25 mg oral tablet, extended release Start Date: 01/12/20 Status: Ordered Repeat number: 1 Ordered 2020 No Facilit y Access metoprolol succinate 25 mg oral tablet, extended release metoprol ol succinat e 25 mg oral tablet, extended release Start Date: 01/07/20 Status: Ordered Repeat number: 1 Ordered 2020 No Facilit y Access metoprolol succinate ER 25 mg/24 hour tablet 25 mg, Oral, Daily, # 90 EA, 3 total refill(s ), Hard Stop Oral (given by mouth) Ordered 11/12/2024 5 2024 90.0 Ambulat ory Pharmac y metoprolol succinate ER 25 mg/24 hour tablet See Instruct ions, # 90 EA, 3 total refill(s ), Hard Stop Complet ed 01/02/2024 3 2023 90.0 Ambulat ory Pharmac y metroNIDAZO LE 500 mg oral tablet 0 total refill(s ) Ordered 2020 No Facilit y Access nitrofurant oin macrocrysta ls 100 mg oral capsule 0 total refill(s ) Ordered 2020 No Facilit y Access pantoprazol e 40 mg oral delayed release tablet pantopra zole 40 mg oral delayed release tablet Start Date: 02/25/20 Status: Ordered Repeat number: 1 Ordered 2020 No Facilit y Access rosuvastati n 10 mg tablet 10 mg, Oral, Daily, # 30 EA, 11 total refill(s ), Hard Stop Oral (given by mouth) Complet ed 01/02/2024 3 2023 30.0 Ambulat ory Pharmac y SITagliptin 100 mg oral tablet TAKE 1 TABLET (100 MG TOTAL) BY MOUTH DAILY *BRAND NAME*, # 90 EA, 3 total refill(s ), Acute Complet ed 10/01/2023 3 2023 90.0 Ambulat ory Pharmac y SITagliptin 100 mg oral tablet SITaglip tin 100 mg oral tablet Start Date: 04/18/20 Status: Ordered Repeat number: 1 Ordered 2020 No Facilit y Access SITagliptin 100 mg oral tablet SITaglip tin 100 mg oral tablet Start Date: 01/07/20 Status: Ordered Repeat number: 1 Ordered 2020 No Facilit y Access SITagliptin 100 mg oral tablet SITaglip tin 100 mg oral tablet Start Date: 01/09/20 Status: Ordered Repeat number: 1 Ordered 2020 No Facilit y Access Synthroid 175 mcg tablet 175 mcg, Oral, Daily, # 90 EA, 3 total refill(s ), Hard Stop Oral (given by mouth) Discont inued 12/25/2020 1 2020 90.0 Ambulat ory Pharmac y Trulicity Pen 0.75 mg/0.5 mL [4EA=2mL] See Instruct ions, # 2 mL, 11 total refill(s ), Hard Stop Notes: refriger ate Discont inued 01/16/2024 4 2023 2.0 Ambulat ory Pharmac y Allergies, Adverse Reactions, Alerts Combined list of allergies from [facility] and [facility] facilities. It does not include entries that were removed or entered in error. Substance Category Reaction Severity Reaction type Status Date Reported Comments Source codeine Propensity to adverse reactions to substance Unknown Active per pt [id number] Unknown Organizati on iodine containing compounds Drug allergy Unknown Unknown Active Ambulatory Pharmacy NexIUM Drug allergy Unknown Unknown Active Ambulatory Pharmacy penicillins Propensity to adverse reactions to substance Unknown Active 5 RASH Unknown Organizati on shellfish Food allergy Unknown Unknown Active Ambulatory Pharmacy sulfur topical Propensity to adverse reactions to substance Unknown Active 5 NOT SURE Unknown Organizati on Procedures Combined list of: 1) Procedures from [facility] of Veterans Affairs facilities going back up to thelast 18 months, not all VA non-surgical procedures are included; 2) All procedures from the Department of Defense facilities. Procedure Procedure Type Code Date Perfomer Comments Sourc e No data available for this section Ambulatory P harmacy Social History Combined list of available smoking, tobacco, and other social history from [facility] Defense and [facility] facilities. Social History Type Response Date Comment Sourc e Sex Representation Female (finding) 06/16/2020 Unknown Organization Sexual Orientation Ambula tory Pharmacy Gender identity [...] Plan No data available for this section 08/16/2024 Ambulatory Pharmacy Functional Status Combined list of recent functional and cognitive assessments recorded at [facility] Functional [place] Measurement (FIM) Scale: 1 = Total Assistance (Subject = 0% +), 2 = Maximal Assistance (Subject = 25% +), 3 = Moderate Assistance (Subject = 50% +), 4 = Minimal Assistance (Subject = 75% +), 5 = Supervision, 6 = Modified [place] (Device), 7 = Complete [place] (Timely, Safely). Assessment Date/Time Source Assessment Type Assessment Skill Assessment Score Assessment Details No data available for this section
--- OUTSIDE RECORDS SUMMARY | 2024-08-15 19:51 | XMS_ITS | Clinical Summary ---
Author Organization [facility] Address [address] [place] [id number] Care Team Providers Care Cytology Supervisor Name Role Phone Unavailable Primary Care Provider [...] 2000 Dexa Scan (General) 08/15/2015 Pneumococcal Vaccine: 50+ Ye ars (1 of 1 - PCV) 08/15/2015 COVID-19 Vaccine ( - 2023-2 5 season) 2024 RSV Immunization or 60+ Years (1 [...]
--- OUTSIDE RECORDS SUMMARY | 2024-08-15 19:51 | XMS_ITS | Clinical Summary ---
Author Organization [facility] Address [address] [place] [address] Care Team Providers Care Nailhead Operator Name Role Phone Lobito Cleaning MD Primary Care Provider [phone] Allergies Active Allergy Reactions Criticality Noted Date [...] 06/06 Assessment & Plan (06/25/2024 5:05 AM [facility]): Reviewed normal chest XRAY. Continue bronchodilators and supportive care. Acute bronchitis 06/25/2024 Assessment & Plan (06/25/2024 8:40 AM [facility]): Schedule albuterol. Complete prednisone. Treat secondary infection with ZPAK. Severe obesity 06/25/2024 Fatigue 11/13/2023 Assessment & Plan (11/13/2023 6:15 AM CDT): Likely from uncontrolled diabetes. Repeat TSH. Order B12, CK. Chronic bilateral low back pain without sciatica 11/13/2023 Assessment & Plan (11/13/2023 3:56 PM CDT): Refer for PT. Dysphagia 11/13/2023 Cellulitis of right anterior lower leg Assessment & Plan (07/09/2023 8:54 AM [facility]): Symptoms are improved. Complete antibiotics and continue steroid cream. Palpitations 07/09/2023 Assessment & Plan (05/21/2024 9:21 AM [facility]): Reorder holter monitor. Reviewed normal TSH. Assessment & Plan (07/09/2023 8:58 AM [facility]): Order monitor. Await TSH. She is intolerant [...] prn. Assessment & Plan (05/31/2021 2:39 PM [facility]): -PVR was low today at 15mL. -Reports only feeling this when she believes she has UTI. -No current symptoms. Acute cystitis without hematuria 05/31/2021 Assessment & Plan (05/31/2021 2:40 PM [facility]): -Most recent UA done by PCP showing [...] 04/26/2021 Assessment & Plan (04/26/2021 10:11 AM [facility]): Reviewed CXR. Order Chest CT. Dysuria 04/25/2021 Assessment & Plan (11/29/2021 2:44 PM CDT): -Has increased water intake. -No issues with dysuria or UTI-like symptoms since initial office visit. PLAN: -Continue with adequate water intake. -Reduce soda intake. Assessment & Plan (04/26/2021 10:07 AM [facility]): Order UA. reviewed urinary hygiene. Treat with macrobid and await culture. Diarrhea of infectious origin 01/29/2021 Assessment & Plan (01/29/2021 9:48 AM CDT): Likely C.dif and antibiotic related. Start metronidazole. Cellulitis of buttock 01/29/2021 Assessment & Plan (01/29/2021 9:51 AM CDT): Cellulitis improved with antibiotics. Rash 01/28/2021 Screen for colon cancer 01/02/2021 Overview (01/02/2021): Added automatically from request for surgery [id number] Chronic right shoulder pain 10/05/2018 Assessment & Plan (10/05/2018 10:41 AM CDT): Reviewed ROM exercises for scapular pain. Class 3 severe obesity due t o excess calories with serious comorbidity and body mass index (BMI) of 40.0 to 44.9 in adult 04/21/2018 Assessment & Plan (04/26/2021 10:18 AM [facility]): BMI is more than 40, reviewed calorie restrictions. Assessment & Plan (04/21/2018 8:56 AM [facility]): BMI is more than 40, reviewed calorie restrictions. Diastolic heart failure secondary to hypertensio n 10/03/2017 Assessment & Plan (04/21/2018 6:47 AM [facility]): Hypertension is controlled. Continue current regimen.CHF compensated. Continue current regimen. Reviewed low sodium diet. Assessment & Plan (10/03/2017 6:32 AM CDT): Hypertension is controlled. Continue current regimen. CHF compensated. Continue current regimen. Reviewed low sodium diet. H/O adenomatous polyp of colon 10/03/2017 Assessment & Plan (10/03/2017 6:38 AM CDT): Advised colonoscopy. Hyperlipidemia associated with type 2 diabetes larry mahmood 04/04/2017 Assessment & Plan (06/25/2024 5:05 AM [facility]): Reviewed recent HgbA1C was improved. Continue Trulicity. Advised rosuvastatin for hyperlipidemia. Assessment & Plan (05/21/2024 9:13 AM [facility]): Reviewed recent HgbA1C was improved to 6.2. [...] rosuvastatin. Assessment & Plan (07/09/2023 5:51 AM [facility]): Her diabetes is uncontrolled;I advised her to follow with Endocrinology. Continue Januvia and glimepiride. Diabetes is complicated by hyperlipidemia;I advised a statin. Assessment & Plan (01/02/2023 3:37 PM CDT): Her diabetes is uncontrolled;I advised her to follow with Endocrinology. Continue Januvia and resume glimepiride. Diabetes is complicated by hyperlipidemia;I advised a statin. Assessment & Plan (05/31/2022 6:18 AM [facility]): She does not have an appointment with [...] control. Assessment & Plan (04/25/2021 11:55 AM [facility]): Reviewed HgbA1C was elevated at 7.5 on 11/02/20. Diabetes is not controlled. Continue current regimen and monitor diet. Reviewed dietary goals for elevated triglycerides,. Assessment & Plan (10/05/2018 6:41 AM CDT): Reviewed proper diet for elevated triglycerides. Assessment & Plan (04/21/2018 6:48 AM [facility]): Reviewed proper diet. Continue diet for elevated triglycerides. Assessment & Plan (10/03/2017 6:33 AM CDT): Reviewed proper diet for hyperlipidemia. Continue Diabetic regimen. Advised annual eye exam. Assessment & Plan (04/04/2017 9:27 AM [facility]): Reviewed proper diet. She will consider statin therapy. Morbid obesity 04/04/2017 Assessment & Plan (04/04/2017 9:20 AM [facility]): BMI is more than 40. Encouraged weight loss. Hypertension 10/07/2013 Assessment & Plan (06/25/2024 5:05 AM [facility]): Hypertension is controlled. Continue current regimen. Assessment & Plan (05/21/2024 5:41 AM [facility]): Hypertension is controlled. Continue current regimen. Assessment & Plan (01/16/2024 5:35 AM CDT): Hypertension is controlled. Continue current regimen. Assessment & Plan (11/13/2023 6:15 AM CDT): Hypertension is controlled. Continue current regimen. Assessment & Plan (07/09/2023 5:51 AM [facility]): Hypertension is controlled. Continue current regimen. Assessment & Plan (05/31/2022 6:17 AM [facility]): Hypertension is controlled. Continue current regimen. Assessment [...] 04/06/21. Assessment & Plan (04/25/2021 11:54 AM [facility]): Hypertension is controlled. Continue current regimen. Assessment & Plan (10/05/2018 6:41 AM CDT): Hypertension is controlled. Continue current regimen. Assessment & Plan (04/04/2017 6:58 AM [facility]): Hypertension is controlled. Continue current regimen. Type 2 diabetes mellitus wit h hyperglycemia, without long-term current use of insulin ([facility]) 10/07/2013 Assessment & Plan (01/28/2021 9:10 AM CDT): Reviewed HgbA1C was elevated at 7.5 on 11/02/20. Diabetes is not controlled. Continue current regimen and monitor diet. Assessment & Plan (10/05/2018 6:42 AM CDT): Continue glimepiride. Continue diet for elevated triglycerides. Assessment & Plan (04/21/2018 6:50 AM [facility]): Last Hgba1C was elevated. Continue current regimen. Assessment & Plan (04/04/2017 6:59 AM [facility]): Continue current regimen. Advised annual eye exam. Reviewed proper diet. Continue statin therapy. Generalized anxiety disorder 09/18/2013 Overview (08/07/2016): GENERALIZED ANXIETY DIS Assessment & Plan (01/01/2023 8:12 AM CDT): Continue lorazepam as needed. She declines a SSRI. Hypothyroidism 09/18/2013 Overview (08/09/2016): HYPOTHYROIDISM NOS Assessment & Plan (05/21/2024 5:41 AM [facility]): Continue levothyroxine. Assessment & Plan (03/02/2024 6:36 AM CDT): Continue levothyroxine. Assessment & Plan (01/16/2024 5:35 AM CDT): Continue levothyroxine. Order labs. Assessment & Plan (11/13/2023 6:15 AM CDT): Continue levothyroxine. Assessment & Plan (07/09/2023 5:51 AM [facility]AD[facility]): Continue levothyroxine and Endocrinology care. Assessment & Plan (01/01/2023 8:12 AM CDT): Continue levothyroxine and Endocrinology care. Assessment & Plan (05/31/2022 6:17 AM [facility]AD[facility]): Continue levothyroxine and Endocrinology care. Assessment & Plan (01/28/2022 7:04 AM CDT): Continue levothyroxine and Endocrinology care. Assessment & Plan (09/13/2021 9:06 AM CDT): Continue levothyroxine. Assessment & Plan (07/26/2021 9:41 AM CDT): Continue levothyroxine. Order TSH. Assessment & Plan (04/25/2021 11:54 AM [facility]): Reviewed normal TSH 11/02/20. Continue levothyroxine. Assessment & Plan (01/28/2021 9:09 AM CDT): Reviewed normal TSH 11/02/20. Continue levothyroxine. Assessment & Plan (10/05/2018 6:42 AM CDT): Continue levothyroxine. Assessment & Plan (04/21/2018 6:49 AM [facility]): Continue levothyroxine. Recent TSH at goal. Assessment & Plan (10/03/2017 6:33 AM CDT): Problem controlled. Continue levothyroxine. Assessment & Plan (04/04/2017 6:59 AM [facility]): Continue levothyroxine. Gastroesophageal reflux disease 09/18/2013 Overview [...] 12/17/2011 06/0 05/2017 Diabetes mellitus 06/21/2011 10/03/2017 Encounters Date Type Department Care Team Description 06/25/2024 9:30 AM [facility] Office Visit [address] [place] [phone] Lobito Cleaning MD Influenza A with respiratory manifestations (Primary Dx); Primary hypertension; Hyperlipidemia associated with type 2 diabetes mellitus (HCC); Acute bronchitis, unspecified organism; Severe obesity (HCC); Class 2 severe obesity with serious comorbidity and body mass index (BMI) of 38.0 to 38.9 in adult, unspecified obesity type (HCC) 06/23/2024 Orders Only [facility] Health Information Management [address] [place] [id number] Scanning, Provider 06/21/[address] [phone] Lobito Cleaning MD Medication Request 05/21/2024 10:00 AM [facility] Office Visit [address] [phone] Lobito Cleaning MD Primary hypertension (Primary Dx); [...] V accination (12+ YRS) 02/24/2024,02/25/2023 Tdap 07/06/2012,07/06/2012 Surgical History Surgery Date Site/Laterality [...] on file Legal Sex Female 2:19 PM [facility] Gender Identity Not on file Sexual Orientation Not on file Obstetrics History Last Filed Vital Signs Vital Sign Reading Time Taken Comments Blood Pressure 132/58 06/25/2024 8:33 AM [facility] Pulse 81 06/25/2024 8:33 AM [facility] Temperature 36.1 C (97 F) 06/25/2024 8:33 AM [facility] Respiratory Rate 18 06/25/2024 8:33 AM [facility] Oxygen Saturation 97% 06/25/2024 8:33 AM [facility] Inhaled Oxygen Concentration - - Weight 106.1 kg (234 lb) 06/25/2024 8:33 AM [facility] Height 165.1 cm (5' 5 ) 06/25/2024 8:33 AM [facility] Body Mass Index 38.94 06/25/2024 8:33 AM [facility] Plan of Treatment Scheduled Procedures Name Priority [...] 10/15/2023 10/14/2022, 05/25/2021, 05/27/2018, Additional history exists Covid-19 Vaccine (2023-06 5 season) 2024 02/24/2024, 02/25/2023, 03/20/2021, Additional history exists Hemoglobin A1C 11/18/2024 05/21/2024, 01/03, 07/09/2023, Additional history exists Albumin Creatinine Ratio, Urine 01/15/2025 01/16/2024, 07/09/2023, 05/31/2022, Additional history exists Fall Risk Assessment 01/15/2025 01/16/2024, 07/26/2021, 02/28/2021, Additional history exists Lipid Panel 01/15/2025 01/16/2024, 03/0 10/2023, 01/02/2023, Additional history exists eGFR 01/15/2025 01/16/2024, 070 12/2023, 07/09/2023, Additional history exists Foot Exam 05/21/2025 05/21/2024, 02/03, 01/16/2024, Additional history exists Depression Screening 06/25/2025 06/25/2024, 05/21/2024, 03/02/2024, Additional history exists Colon Cancer Screening-CT Colonography Discontinued 05/03/2010 Colon Cancer Screening-DNA Stool Discontinued 05/03/20 10 Colon Cancer Screening-FIT Discontinued 05/03/2010 Colon Cancer Screening-Sigmoidoscopy Discontinued 05/03/2010 Influenza Vaccine Completed 03/02/2024, , 02/21/2021, Additional history exists Procedures Procedure Name Priority Date/Time Associated Diagnosis Comments SCAN - RADIOLOGY/IMAGING 06/23/2024 8:36 AM [facility] POCT HEMOGLOBIN A1C Routine 05/21/2024 9 :08 AM [facility] Hyperlipidemia associated with type 2 diabetes mellitus [...] * SCAN - RADIOLOGY/IMAGING (06/23/2024 8:36 AM [facility]) Anatomical Region Laterality Modality Other us Provider Scanning Final Result * POCT hemoglobin A1c (05/21/2024 9:08 AM [facility]) Hemoglobin A1C, POC 6.2 4.0 - 5.6 % Blood 05/21/2024 9:08 AM [facility] Lobito Cleaning MD POINT OF CARE TEST [...] ORDERABLES Final Re sult Performing Organization Address [facility] de Phone Number [facility] [place] [address] * Albumin Creatinine Ratio, Urine (01/16/2024 8:49 AM CDT) Albumin Ur <12.0 mg/L Comment: Interpretive Data No reference range established. Current interpretive data was last revised 2018. Creatinine Ur 28.6 mg/dL [facility] Comment: Interpretive Data No reference range established. Current interpretive data was last revised 2018. Albumin Creatinine Ratio, Ur See Comment 1 - 29 mg/g [facility] Comment:Unable to calculate Urine 01/16/2024 8:49 AM CDT 01/16/2024 12:29 PM CDT Lobito Cleaning MD LAB URINE ORDERABLES Final Re sult Performing Organization Address [facility] de Phone Number [facility] [place] [address] * (ABNORMAL) Lipid panel (01/16/2024 8:49 AM [...] revised on 2017. Triglycerides 186(H) <=149 mg/dL [facility] Comment: Interpretive Data Ages < or [...] on 2017. HDL 33(L) >=40 mg/dL [facility] Comment: Interpretive Data Ages < or [...] on 2017. LDL, calculated 135(H) <=129 mg/dL [facility] Comment: Interpretive Data Ages < or [...] 2. NCEP Expert Panel. Circulation 2004;110:227 3. Carreon M et al. MAURICE Cardiol. 2019September 02;5(5):540-548. doi: 10.1001/[email or web address].2020.0013 Current Interpretive Data was last revised on 2023. Non-HDL Cholesterol 169 mg/dL [facility] Comment: Interpretive Data Ages < or [...] last revised on 2017. Chol/HDL ratio 6 [facility] Blood 01/16/2024 8:49 AM CDT 01/16/2024 12:29 PM CDT us Lobito Cleaning MD LAB BLOOD ORDERABLES Final Re sult [facility] [place] [address] * Diagnostic Mammogram Bilateral W Sheila (10/14/2022 [...] Recently Relevant to Health Maintenance Insurance MEDICARE [facility] Address: [facility] [address] [place] [address] [employer] MEDICARE [employer] [facility] MEDICARE FOR LIFE Care Teams Nailhead Operator Relationship Specialty Start Date End Date Lobito Cleaning MD [id number] [facility] [address], [place] [address] PCP - General Internal Medicine 11/02/20
[2024-08-15 19:54] VITALS: BP 154/65; PULSE 100; RESP 16; TEMP 37.2; O2SAT 95
[2024-08-15 19:54] LABS: Glucose Point of Care 197 mg/dl (65-105)
[2024-08-15 20:42] LABS: Influenza A QL RT-PCR Negative (Negative); Influenza B QL RT-PCR Negative (Negative); RSV RNA, RT-PCR Negative (Negative); SARS-CoV-2 RNA PCR Negative (Negative)
[2024-08-15 21:00] VITALS: RESP 17; O2SAT 98
--- OUTSIDE RECORDS SUMMARY | 2024-08-15 21:06 | XMS_ITS | Clinical Summary ---
Author Organization [facility], formerly [facility] Address [address] [place] [address] Care Team Providers Care Printing Services Coordinator Name Role Phone Lobito Cleaning MD Primary [...] 06/06 Assessment & Plan (06/25/2024 5:05 AM RUBBER OFF): Reviewed normal chest XRAY. Continue bronchodilators and supportive care. Acute bronchitis 06/25/2024 Assessment & Plan (06/25/2024 8:40 AM RUBBER OFF): Schedule albuterol. Complete prednisone. Treat secondary infection with ZPAK. Severe obesity 06/25/2024 Fatigue 11/13/2023 Assessment & Plan (11/13/2023 6:15 AM CDT): Likely from uncontrolled diabetes. Repeat TSH. Order B12, CK. Chronic bilateral low back pain without sciatica 11/13/2023 Assessment & Plan (11/13/2023 3:56 PM CDT): Refer for PT. Dysphagia 11/13/2023 Cellulitis of right anterior lower leg Assessment & Plan (07/09/2023 8:54 AM RUBBER OFF): Symptoms are improved. Complete antibiotics and continue steroid cream. Palpitations 07/09/2023 Assessment & Plan (05/21/2024 9:21 AM RUBBER OFF): Reorder holter monitor. Reviewed normal TSH. Assessment & Plan (07/09/2023 8:58 AM RUBBER OFF): Order monitor. Await TSH. She is intolerant [...] prn. Assessment & Plan (05/31/2021 2:39 PM RUBBER OFF): -PVR was low today at 15mL. -Reports only feeling this when she believes she has UTI. -No current symptoms. Acute cystitis without hematuria 05/31/2021 Assessment & Plan (05/31/2021 2:40 PM RUBBER OFF): -Most recent UA done by PCP showing [...] 04/26/2021 Assessment & Plan (04/26/2021 10:11 AM RUBBER OFF): Reviewed CXR. Order Chest CT. Dysuria 04/25/2021 Assessment & Plan (11/29/2021 2:44 PM CDT): -Has increased water intake. -No issues with dysuria or UTI-like symptoms since initial office visit. PLAN: -Continue with adequate water intake. -Reduce soda intake. Assessment & Plan (04/26/2021 10:07 AM RUBBER OFF): Order UA. reviewed urinary hygiene. Treat with macrobid and await culture. Diarrhea of infectious origin 01/29/2021 Assessment & Plan (01/29/2021 9:48 AM CDT): Likely C.dif and antibiotic related. Start metronidazole. Cellulitis of buttock 01/29/2021 Assessment & Plan (01/29/2021 9:51 AM CDT): Cellulitis improved with antibiotics. Rash 01/28/2021 Screen for colon cancer 01/02/2021 Overview (01/02/2021): Added automatically from request for surgery [id number] Chronic right shoulder pain 10/05/2018 Assessment & Plan (10/05/2018 10:41 AM CDT): Reviewed ROM exercises for scapular pain. Class 3 severe obesity due t o excess calories with serious comorbidity and body mass index (BMI) of 40.0 to 44.9 in adult 04/21/2018 Assessment & Plan (04/26/2021 10:18 AM RUBBER OFF): BMI is more than 40, reviewed calorie restrictions. Assessment & Plan (04/21/2018 8:56 AM RUBBER OFF): BMI is more than 40, reviewed calorie restrictions. Diastolic heart failure secondary to hypertensio n 10/03/2017 Assessment & Plan (04/21/2018 6:47 AM RUBBER OFF): Hypertension is controlled. Continue current regimen.CHF compensated. [...] 04/04/2017 Assessment & Plan (06/25/2024 5:05 AM RUBBER OFF): Reviewed recent HgbA1C was improved. Continue Trulicity. Advised rosuvastatin for hyperlipidemia. Assessment & Plan (05/21/2024 9:13 AM RUBBER OFF): Reviewed recent HgbA1C was improved to 6.2. [...] rosuvastatin. Assessment & Plan (07/09/2023 5:51 AM RUBBER OFF): Her diabetes is uncontrolled;I advised her to follow with Endocrinology. Continue Januvia and glimepiride. Diabetes is complicated by hyperlipidemia;I advised a statin. Assessment & Plan (01/02/2023 3:37 PM CDT): Her diabetes is uncontrolled;I advised her to follow with Endocrinology. Continue Januvia and resume glimepiride. Diabetes is complicated by hyperlipidemia;I advised a statin. Assessment & Plan (05/31/2022 6:18 AM RUBBER OFF): She does not have an appointment with [...] control. Assessment & Plan (04/25/2021 11:55 AM RUBBER OFF): Reviewed HgbA1C was elevated at 7.5 on 11/02/20. Diabetes is not controlled. Continue current regimen and monitor diet. Reviewed dietary goals for elevated triglycerides,. Assessment & Plan (10/05/2018 6:41 AM CDT): Reviewed proper diet for elevated triglycerides. Assessment & Plan (04/21/2018 6:48 AM RUBBER OFF): Reviewed proper diet. Continue diet for elevated triglycerides. Assessment & Plan (10/03/2017 6:33 AM CDT): Reviewed proper diet for hyperlipidemia. Continue Diabetic regimen. Advised annual eye exam. Assessment & Plan (04/04/2017 9:27 AM RUBBER OFF): Reviewed proper diet. She will consider statin therapy. Morbid obesity 04/04/2017 Assessment & Plan (04/04/2017 9:20 AM RUBBER OFF): BMI is more than 40. Encouraged weight loss. Hypertension 10/07/2013 Assessment & Plan (06/25/2024 5:05 AM RUBBER OFF): Hypertension is controlled. Continue current regimen. Assessment & Plan (05/21/2024 5:41 AM RUBBER OFF): Hypertension is controlled. Continue current regimen. Assessment & Plan (01/16/2024 5:35 AM CDT): Hypertension is controlled. Continue current regimen. Assessment & Plan (11/13/2023 6:15 AM CDT): Hypertension is controlled. Continue current regimen. Assessment & Plan (07/09/2023 5:51 AM RUBBER OFF): Hypertension is controlled. Continue current regimen. Assessment & Plan (05/31/2022 6:17 AM RUBBER OFF): Hypertension is controlled. Continue current regimen. Assessment [...] 04/06/21. Assessment & Plan (04/25/2021 11:54 AM RUBBER OFF): Hypertension is controlled. Continue current regimen. Assessment & Plan (10/05/2018 6:41 AM CDT): Hypertension is controlled. Continue current regimen. Assessment & Plan (04/04/2017 6:58 AM RUBBER OFF): Hypertension is controlled. Continue current regimen. Type 2 diabetes mellitus wit h hyperglycemia, without long-term current use of insulin ([facility]) 10/07/2013 Assessment & Plan (01/28/2021 9:10 AM CDT): Reviewed HgbA1C was elevated at 7.5 on 11/02/20. Diabetes is not controlled. Continue current regimen and monitor diet. Assessment & Plan (10/05/2018 6:42 AM CDT): Continue glimepiride. Continue diet for elevated triglycerides. Assessment & Plan (04/21/2018 6:50 AM RUBBER OFF): Last Hgba1C was elevated. Continue current regimen. Assessment & Plan (04/04/2017 6:59 AM RUBBER OFF): Continue current regimen. Advised annual eye exam. Reviewed proper diet. Continue statin therapy. Generalized anxiety disorder 09/18/2013 Overview (08/07/2016): GENERALIZED ANXIETY DIS Assessment & Plan (01/01/2023 8:12 AM CDT): Continue lorazepam as needed. She declines a SSRI. Hypothyroidism 09/18/2013 Overview (08/09/2016): HYPOTHYROIDISM NOS Assessment & Plan (05/21/2024 5:41 AM RUBBER OFF): Continue levothyroxine. Assessment & Plan (03/02/2024 6:36 AM CDT): Continue levothyroxine. Assessment & Plan (01/16/2024 5:35 AM CDT): Continue levothyroxine. Order labs. Assessment & Plan (11/13/2023 6:15 AM CDT): Continue levothyroxine. Assessment & Plan (07/09/2023 5:51 AM RUBBER OFF): Continue levothyroxine and Endocrinology care. Assessment & Plan (01/01/2023 8:12 AM CDT): Continue levothyroxine and Endocrinology care. Assessment & Plan (05/31/2022 6:17 AM RUBBER OFF): Continue levothyroxine and Endocrinology care. Assessment & Plan (01/28/2022 7:04 AM CDT): Continue levothyroxine and Endocrinology care. Assessment & Plan (09/13/2021 9:06 AM CDT): Continue levothyroxine. Assessment & Plan (07/26/2021 9:41 AM CDT): Continue levothyroxine. Order TSH. Assessment & Plan (04/25/2021 11:54 AM RUBBER OFF): Reviewed normal TSH 11/02/20. Continue levothyroxine. Assessment & Plan (01/28/2021 9:09 AM CDT): Reviewed normal TSH 11/02/20. Continue levothyroxine. Assessment & Plan (10/05/2018 6:42 AM CDT): Continue levothyroxine. Assessment & Plan (04/21/2018 6:49 AM RUBBER OFF): Continue levothyroxine. Recent TSH at goal. Assessment & Plan (10/03/2017 6:33 AM CDT): Problem controlled. Continue levothyroxine. Assessment & Plan (04/04/2017 6:59 AM RUBBER OFF): Continue levothyroxine. Gastroesophageal reflux disease 09/18/2013 Overview [...] Department Care Team Description 06/25/2024 9:30 AM RUBBER OFF Office Visit [address] [place] [phone] Lobito Cleaning MD Influenza A with respiratory manifestations (Primary Dx); Primary hypertension; Hyperlipidemia associated with type 2 diabetes mellitus (HCC); Acute bronchitis, unspecified organism; Severe obesity (HCC); Class 2 severe obesity with serious comorbidity and body mass index (BMI) of 38.0 to 38.9 in adult, unspecified obesity type (HCC) 06/23/2024 Orders Only [facility] Health Information Management [address] [place] [id number] Scanning, Provider 06/21/[address] [phone] Lobito Cleaning MD Medication Request 05/21/2024 10:00 AM RUBBER OFF Office Visit [address] [phone] Lobito Cleaning MD Primary hypertension (Primary Dx); [...] on file Legal Sex Female 2:19 PM RUBBER OFF Gender Identity Not on file Sexual Orientation Not on file Obstetrics History Last Filed Vital Signs Vital Sign Reading Time Taken Comments Blood Pressure 132/58 06/25/2024 8:33 AM RUBBER OFF Pulse 81 06/25/2024 8:33 AM RUBBER OFF Temperature 36.1 C (97 F) 06/25/2024 8:33 AM RUBBER OFF Respiratory Rate 18 06/25/2024 8:33 AM RUBBER OFF Oxygen Saturation 97% 06/25/2024 8:33 AM RUBBER OFF Inhaled Oxygen Concentration - - Weight 106.1 kg (234 lb) 06/25/2024 8:33 AM RUBBER OFF Height 165.1 cm (5' 5 ) 06/25/2024 8:33 AM RUBBER OFF Body Mass Index 38.94 06/25/2024 8:33 AM RUBBER OFF Plan of Treatment Scheduled Procedures Name Priority [...] Comments SCAN - RADIOLOGY/IMAGING 06/23/2024 8:36 AM RUBBER OFF POCT HEMOGLOBIN A1C Routine 05/21/2024 9 :08 AM RUBBER OFF Hyperlipidemia associated with type 2 diabetes mellitus [...] * SCAN - RADIOLOGY/IMAGING (06/23/2024 8:36 AM RUBBER OFF) Anatomical Region Laterality Modality Other us Provider Scanning Final Result * POCT hemoglobin A1c (05/21/2024 9:08 AM RUBBER OFF) Hemoglobin A1C, POC 6.2 4.0 - 5.6 % Blood 05/21/2024 9:08 AM RUBBER OFF Lobito Cleaning MD POINT OF CARE TEST [...] ORDERABLES Final Re sult Performing Organization Address [facility] de Phone Number [facility] Department [place] [address] * Albumin Creatinine Ratio, Urine (01/16/2024 8:49 AM CDT) Albumin Ur <12.0 mg/L Comment: Interpretive Data No reference range established. Current interpretive data was last revised 2018. Creatinine Ur 28.6 mg/dL [facility] Comment: Interpretive Data No reference range established. Current interpretive data was last revised 2018. Albumin Creatinine Ratio, Ur See Comment 1 - 29 mg/g [facility] Comment:Unable to calculate Urine 01/16/2024 8:49 AM CDT 01/16/2024 12:29 PM CDT Lobito Cleaning MD LAB URINE ORDERABLES Final Re sult Performing Organization Address [facility] de Phone Number [facility] Department [place] [address] * (ABNORMAL) Lipid panel (01/16/2024 8:49 AM [...] revised on 2017. Triglycerides 186(H) <=149 mg/dL [facility] Comment: Interpretive Data Ages < or = [...] on 2017. HDL 33(L) >=40 mg/dL [facility] Comment: Interpretive Data Ages < or = [...] on 2017. LDL, calculated 135(H) <=129 mg/dL [facility] Comment: Interpretive Data Ages < or = [...] revised on 2023. Non-HDL Cholesterol 169 mg/dL [facility] Comment: Interpretive Data Ages < or = [...] last revised on 2017. Chol/HDL ratio 6 [facility] Blood 01/16/2024 8:49 AM CDT 01/16/2024 12:29 PM CDT us Lobito Cleaning MD LAB BLOOD ORDERABLES Final Re sult [facility] Department [place] [address] * Diagnostic Mammogram Bilateral W Sheila (10/14/2022 [...] Recently Relevant to Health Maintenance Insurance MEDICARE Prescreen MEDICARE t-Art [facility] MEDICARE FOR LIFE Care Teams Printing Services Coordinator Relationship Specialty Start Date End Date Lobito Cleaning MD [id number] [facility] [address], [place] [address] PCP - General Internal Medicine 11/02/20
--- OUTSIDE RECORDS SUMMARY | 2024-08-15 21:06 | XMS_ITS | CONTINUITY OF CARE DOCUMENT ---
Author Name wily julien Address Unknown Organization [facility] Address [address] [facility] [address] [place] [address] Phone [phone] Care Team Providers Care Order Processing Specialist Name Role Phone Baljit Caldwell MD Unavailable [phone] Baljit Caldwell MD Unavailable [phone] INS[employer]ANCE [employer] Payer name Policy type / Coverage type Patrice red republican ID [facility] qualifyor [id number] [place] [employer] Medicare [id number]
--- OUTSIDE RECORDS SUMMARY | 2024-08-15 21:07 | XMS_ITS | Clinical Summary ---
Author Organization [facility] Address [address] [place] [id number] Care Team Providers Care Environment Artist Name Role Phone Unavailable Primary Care Provider [...]
--- OUTSIDE RECORDS SUMMARY | 2024-08-15 21:07 | XMS_ITS | Continuity of Care Document ---
Author Name [facility] Organization [facility] Care Team Providers Care Manager Collection Name Role Phone [facility] Unavailable Unavailable Medications Combined list of outpatient [...] at [employer] [facility] [place] Functional [place] Measurement (FIM) Scale: 1 = Total Assistance (Subject = 0% +), 2 = Maximal Assistance (Subject = 25% +), 3 = Moderate Assistance (Subject = 50% +), 4 = Minimal Assistance (Subject = 75% +), 5 = Supervision, 6 = Modified [place] (Device), 7 = Complete [place] (Timely, Safely). Assessment Date/Time Source Assessment Type Assessment Skill Assessment Score Assessment Details No data available for this section
--- OUTSIDE RECORDS SUMMARY | 2024-08-15 21:07 | XMS_ITS | Referral Summary ---
Author Organization [facility] Address [address] [place] [address] Care Team Providers Care Mortuary Technician Name Role Phone Lobito Cleaning MD Primary Care Provider [phone] Encounters Date Type Department Care Team Description 06/25/2024 9:30 AM BAG MACHINE ADJUSTER Office Visit [address] [address] Lobito Cleaning MD Influenza A with respiratory manifestations (Primary Dx); Primary hypertension; Hyperlipidemia associated with type 2 diabetes mellitus (HCC); Acute bronchitis, unspecified organism; Severe obesity (HCC); Class 2 severe obesity with serious comorbidity and body mass index (BMI) of 38.0 to 38.9 in adult, unspecified obesity type (HCC) 06/23/2024 Orders Only [facility] [place] Health Information Management [address] [place] [id number] Scanning, Provider 06/21/[address] [address] Lobito Cleaning MD Medication Request 05/21/2024 10:00 AM BAG MACHINE ADJUSTER Office Visit [address] [phone] Lobito Cleaning MD Primary hypertension [...] hyperglycemia, without long-term current use of insulin ([facility]) 100 each by other route once a week Use for Trulicity injection weekly. 100 each 1 4 Active blood-glucose meter kitIndications: Diabetes mellitus due to underlying condition with hyperglycemia, without long-term current use of insulin ([facility]) Use daily or as directed for monitoring of diabetes 1 kit 4 Active blood glucose diagnostic stripIndication s:Diabetes mellitus due to underlying condition with hyperglycemia, without long-term current use of insulin ([facility]) 1 each by other route 2 (two) times a day before lunch and dinner 180 each 4 09/05/19 25 Active lancets 31 gauge miscIndications :Diabetes mellitus due to underlying condition with hyperglycemia, without long-term current use of insulin ([facility]) 1 strip 2 (two) times a [...] 06/06 Assessment & Plan (06/25/2024 5:05 AM BAG MACHINE ADJUSTER): Reviewed normal chest XRAY. Continue bronchodilators and supportive care. Acute bronchitis 06/25/2024 Assessment & Plan (06/25/2024 8:40 AM BAG MACHINE ADJUSTER): Schedule albuterol. Complete prednisone. Treat secondary infection with ZPAK. Severe obesity 06/25/2024 Fatigue 11/13/2023 Assessment & Plan (11/13/2023 6:15 AM CDT): Likely from uncontrolled diabetes. Repeat TSH. Order B12, CK. Chronic bilateral low back pain without sciatica 11/13/2023 Assessment & Plan (11/13/2023 3:56 PM CDT): Refer for PT. Dysphagia 11/13/2023 Cellulitis of right anterior lower leg Assessment & Plan (07/09/2023 8:54 AM BAG MACHINE ADJUSTER): Symptoms are improved. Complete antibiotics and continue steroid cream. Palpitations 07/09/2023 Assessment & Plan (05/21/2024 9:21 AM BAG MACHINE ADJUSTER): Reorder holter monitor. Reviewed normal TSH. Assessment & Plan (07/09/2023 8:58 AM BAG MACHINE ADJUSTER): Order monitor. Await TSH. She is intolerant of CPAP. Essential hypertension 01/01/2023 Assessment & Plan (03/02/2024 6:36 AM CDT): Hypertension is controlled. Continue current regimen. Assessment & Plan (01/02/2023 3:40 PM CDT): Hypertension is controlled. Continue current regimen. Morbid (severe) obesity due to excess calories 0 01/28/2022 Body mass index 40.0-44.9, adult ([facility]) 01/28 Chest pain 01/28/2022 Assessment & [...] prn. Assessment & Plan (05/31/2021 2:39 PM BAG MACHINE ADJUSTER): -PVR was low today at 15mL. -Reports only feeling this when she believes she has UTI. -No current symptoms. Acute cystitis without hematuria 05/31/2021 Assessment & Plan (05/31/2021 2:40 PM BAG MACHINE ADJUSTER): -Most recent UA done by PCP showing [...] 04/26/2021 Assessment & Plan (04/26/2021 10:11 AM BAG MACHINE ADJUSTER): Reviewed CXR. Order Chest CT. Dysuria 04/25/2021 Assessment & Plan (11/29/2021 2:44 PM CDT): -Has increased water intake. -No issues with dysuria or UTI-like symptoms since initial office visit. PLAN: -Continue with adequate water intake. -Reduce soda intake. Assessment & Plan (04/26/2021 10:07 AM BAG MACHINE ADJUSTER): Order UA. reviewed urinary hygiene. Treat with macrobid and await culture. Diarrhea of infectious origin 01/29/2021 Assessment & Plan (01/29/2021 9:48 AM CDT): Likely C.dif and antibiotic related. Start metronidazole. Cellulitis of buttock 01/29/2021 Assessment & Plan (01/29/2021 9:51 AM CDT): Cellulitis improved with antibiotics. Rash 01/28/2021 Screen for colon cancer 01/02/2021 Overview (01/02/2021): Added automatically from request for surgery [id number] Chronic right shoulder pain 10/05/2018 Assessment & Plan (10/05/2018 10:41 AM CDT): Reviewed ROM exercises for scapular pain. Class 3 severe obesity due t o excess calories with serious comorbidity and body mass index (BMI) of 40.0 to 44.9 in adult 04/21/2018 Assessment & Plan (04/26/2021 10:18 AM BAG MACHINE ADJUSTER): BMI is more than 40, reviewed calorie restrictions. Assessment & Plan (04/21/2018 8:56 AM BAG MACHINE ADJUSTER): BMI is more than 40, reviewed calorie restrictions. Diastolic heart failure secondary to hypertensio n 10/03/2017 Assessment & Plan (04/21/2018 6:47 AM BAG MACHINE ADJUSTER): Hypertension is controlled. Continue current regimen.CHF compensated. [...] 04/04/2017 Assessment & Plan (06/25/2024 5:05 AM BAG MACHINE ADJUSTER): Reviewed recent HgbA1C was improved. Continue Trulicity. Advised rosuvastatin for hyperlipidemia. Assessment & Plan (05/21/2024 9:13 AM BAG MACHINE ADJUSTER): Reviewed recent HgbA1C was improved to 6.2. [...] rosuvastatin. Assessment & Plan (07/09/2023 5:51 AM BAG MACHINE ADJUSTER): Her diabetes is uncontrolled;I advised her to follow with Endocrinology. Continue Januvia and glimepiride. Diabetes is complicated by hyperlipidemia;I advised a statin. Assessment & Plan (01/02/2023 3:37 PM CDT): Her diabetes is uncontrolled;I advised her to follow with Endocrinology. Continue Januvia and resume glimepiride. Diabetes is complicated by hyperlipidemia;I advised a statin. Assessment & Plan (05/31/2022 6:18 AM BAG MACHINE ADJUSTER): She does not have an appointment with [...] control. Assessment & Plan (04/25/2021 11:55 AM BAG MACHINE ADJUSTER): Reviewed HgbA1C was elevated at 7.5 on 11/02/20. Diabetes is not controlled. Continue current regimen and monitor diet. Reviewed dietary goals for elevated triglycerides,. Assessment & Plan (10/05/2018 6:41 AM CDT): Reviewed proper diet for elevated triglycerides. Assessment & Plan (04/21/2018 6:48 AM BAG MACHINE ADJUSTER): Reviewed proper diet. Continue diet for elevated triglycerides. Assessment & Plan (10/03/2017 6:33 AM CDT): Reviewed proper diet for hyperlipidemia. Continue Diabetic regimen. Advised annual eye exam. Assessment & Plan (04/04/2017 9:27 AM BAG MACHINE ADJUSTER): Reviewed proper diet. She will consider statin therapy. Morbid obesity 04/04/2017 Assessment & Plan (04/04/2017 9:20 AM BAG MACHINE ADJUSTER): BMI is more than 40. Encouraged weight loss. Hypertension 10/07/2013 Assessment & Plan (06/25/2024 5:05 AM BAG MACHINE ADJUSTER): Hypertension is controlled. Continue current regimen. Assessment & Plan (05/21/2024 5:41 AM BAG MACHINE ADJUSTER): Hypertension is controlled. Continue current regimen. Assessment & Plan (01/16/2024 5:35 AM CDT): Hypertension is controlled. Continue current regimen. Assessment & Plan (11/13/2023 6:15 AM CDT): Hypertension is controlled. Continue current regimen. Assessment & Plan (07/09/2023 5:51 AM BAG MACHINE ADJUSTER): Hypertension is controlled. Continue current regimen. Assessment & Plan (05/31/2022 6:17 AM BAG MACHINE ADJUSTER): Hypertension is controlled. Continue current regimen. Assessment [...] 04/06/21. Assessment & Plan (04/25/2021 11:54 AM BAG MACHINE ADJUSTER): Hypertension is controlled. Continue current regimen. Assessment & Plan (10/05/2018 6:41 AM CDT): Hypertension is controlled. Continue current regimen. Assessment & Plan (04/04/2017 6:58 AM BAG MACHINE ADJUSTER): Hypertension is controlled. Continue current regimen. Type 2 diabetes mellitus wit h hyperglycemia, without long-term current use of insulin ([facility]) 10/07/2013 Assessment & Plan (01/28/2021 9:10 AM CDT): Reviewed HgbA1C was elevated at 7.5 on 11/02/20. Diabetes is not controlled. Continue current regimen and monitor diet. Assessment & Plan (10/05/2018 6:42 AM CDT): Continue glimepiride. Continue diet for elevated triglycerides. Assessment & Plan (04/21/2018 6:50 AM BAG MACHINE ADJUSTER): Last Hgba1C was elevated. Continue current regimen. Assessment & Plan (04/04/2017 6:59 AM BAG MACHINE ADJUSTER): Continue current regimen. Advised annual eye exam. Reviewed proper diet. Continue statin therapy. Generalized anxiety disorder 09/18/2013 Overview (08/07/2016): GENERALIZED ANXIETY DIS Assessment & Plan (01/01/2023 8:12 AM CDT): Continue lorazepam as needed. She declines a SSRI. Hypothyroidism 09/18/2013 Overview (08/09/2016): HYPOTHYROIDISM NOS Assessment & Plan (05/21/2024 5:41 AM BAG MACHINE ADJUSTER): Continue levothyroxine. Assessment & Plan (03/02/2024 6:36 AM CDT): Continue levothyroxine. Assessment & Plan (01/16/2024 5:35 AM CDT): Continue levothyroxine. Order labs. Assessment & Plan (11/13/2023 6:15 AM CDT): Continue levothyroxine. Assessment & Plan (07/09/2023 5:51 AM BAG MACHINE ADJUSTER): Continue levothyroxine and Endocrinology care. Assessment & Plan (01/01/2023 8:12 AM CDT): Continue levothyroxine and Endocrinology care. Assessment & Plan (05/31/2022 6:17 AM BAG MACHINE ADJUSTER): Continue levothyroxine and Endocrinology care. Assessment & Plan (01/28/2022 7:04 AM CDT): Continue levothyroxine and Endocrinology care. Assessment & Plan (09/13/2021 9:06 AM CDT): Continue levothyroxine. Assessment & Plan (07/26/2021 9:41 AM CDT): Continue levothyroxine. Order TSH. Assessment & Plan (04/25/2021 11:54 AM BAG MACHINE ADJUSTER): Reviewed normal TSH 11/02/20. Continue levothyroxine. Assessment & Plan (01/28/2021 9:09 AM CDT): Reviewed normal TSH 11/02/20. Continue levothyroxine. Assessment & Plan (10/05/2018 6:42 AM CDT): Continue levothyroxine. Assessment & Plan (04/21/2018 6:49 AM BAG MACHINE ADJUSTER): Continue levothyroxine. Recent TSH at goal. Assessment & Plan (10/03/2017 6:33 AM CDT): Problem controlled. Continue levothyroxine. Assessment & Plan (04/04/2017 6:59 AM BAG MACHINE ADJUSTER): Continue levothyroxine. Gastroesophageal reflux disease 09/18/2013 Overview [...] on file Legal Sex Female 2:19 PM BAG MACHINE ADJUSTER Gender Identity Not on file Sexual Orientation Not on file Last Filed Vital Signs Vital Sign Reading Time Taken Comments Blood Pressure 132/58 06/25/2024 8:33 AM BAG MACHINE ADJUSTER Pulse 81 06/25/2024 8:33 AM BAG MACHINE ADJUSTER Temperature 36.1 C (97 F) 06/25/2024 8:33 AM BAG MACHINE ADJUSTER Respiratory Rate 18 06/25/2024 8:33 AM BAG MACHINE ADJUSTER Oxygen Saturation 97% 06/25/2024 8:33 AM BAG MACHINE ADJUSTER Inhaled Oxygen Concentration - - Weight 106.1 kg (234 lb) 06/25/2024 8:33 AM BAG MACHINE ADJUSTER Height 165.1 cm (5' 5 ) 06/25/2024 8:33 AM BAG MACHINE ADJUSTER Body Mass Index 38.94 06/25/2024 8:33 AM BAG MACHINE ADJUSTER Plan of Treatment Scheduled Procedures Name Priority Associated Diagnoses Date/Ti me ESOPHAGOGASTRODUODENOSCOPY Open Access Dysphagia, unspecified type COLONOSCOPY Screen for colon cancer Procedures Procedure Name Priority Date/Time Associated Diagnosis Comments SCAN - RADIOLOGY/IMAGING 06/23/2024 8:36 AM BAG MACHINE ADJUSTER POCT HEMOGLOBIN A1C Routine 05/21/2024 9 :08 AM BAG MACHINE ADJUSTER Hyperlipidemia associated with type 2 diabetes mellitus [...] * SCAN - RADIOLOGY/IMAGING (06/23/2024 8:36 AM BAG MACHINE ADJUSTER) Anatomical Region Laterality Modality Other us Provider Scanning Final Result * POCT hemoglobin A1c (05/21/2024 9:08 AM BAG MACHINE ADJUSTER) Hemoglobin A1C, POC 6.2 4.0 - 5.6 % Blood 05/21/2024 9:08 AM BAG MACHINE ADJUSTER Lobito Cleaning MD POINT OF CARE TEST [...] ORDERABLES Final Re sult Performing Organization Address [facility] Co de Phone Number [facility] [place] [address] * Albumin Creatinine Ratio, Urine (01/16/2024 8:49 [...] ORDERABLES Final Re sult Performing Organization Address [facility] Co de Phone Number [facility] [place] [address] * (ABNORMAL) Lipid panel (01/16/2024 8:49 AM [...] revised on 2017. Triglycerides 186(H) <=149 mg/dL [facility] Comment: [...] revised on 2017. HDL 33(L) >=40 mg/dL [facility] Comment: [...] on 2017. LDL, calculated 135(H) <=129 mg/dL [facility] Comment: [...] on 2023. Non-HDL Cholesterol 169 mg/dL [facility] Comment: Interpretive Data Ages < or = [...] last revised on 2017. Chol/HDL ratio 6 [facility] Blood 01/16/2024 8:49 AM CDT 01/16/2024 12:29 PM CDT us Lobito Cleaning MD LAB BLOOD ORDERABLES Final Re sult [facility] Department [place] [address] * Diagnostic Mammogram Bilateral W Sheila (10/14/2022 [...] FOR LIFE MEDICARE FOR LIFE Care Teams Mortuary Technician Relationship Specialty Start Date End Date Lobito Cleaning MD [id number] [facility] [address] [place] [address] PCP - General Internal Medicine 11/02/20
--- NOTE | 2024-08-15 21:33 | ECG_ITS ---
Test Date: 2024-08-15 22:37:53 Measurements Intervals [place] Rate: 83 P: -7 NE: 156 QRS: -8 QRSD: 108 T: 26 QT: 380 QTc: 447 Interpretive Statements SINUS RHYTHM CANNOT R/O SEPTAL INFARCT, AGE INDETERMINATE BORDERLINE T WAVE ABNORMALITY- INF/HIGH LAT LEADS ABNORMAL ECG Compared to ECG 06/21/2024 12:20:30 NO SIGNIFICANT CHANGE Electronically Signed On 08-16-2024 06:34:26 CDT by Darian Jones D.O.
--- NOTE | 2024-08-15 21:34 | ED_ITS ---
HPI - Allergic Reaction General Chief complaint: Fever Stated complaint: Fever, chills- feel bad --Diabetic Time Seen by Provider: 08/15/24 20:56 Source: patient Mode of arrival: ambulatory Limitations: no limitations History of Present Illness HPI narrative: This is a 74-year-old female that presents to the emergency department for a possible reaction to her medication. Reports after she did her Trulicity shot today, she started to feel shaky, felt like her heart was racing. She also reports she had a fever at home. Denies any focal infectious symptoms currently. Reports she has had a similar reaction in the past after she has done the injection. Denies cough, congestion, abdominal pain, vomiting, dysuria. Related Data Home Medications ?Medication ?Instructions ?Recorded ?Confirmed ?Last Taken ?Type amlodipine 5 mg tablet 5 mg PO DAILY 01/18/21 01/18/21 Unknown History glimepiride 2 mg tablet 2 mg PO DAILY 01/18/21 01/18/21 Unknown History levothyroxine 150 mcg tablet 175 mcg PO DAILY 01/18/21 01/18/21 Unknown History lorazepam 1 mg tablet 1 mg PO QID 01/18/21 01/18/21 Unknown History metoprolol succinate 25 mg 25 mg PO DAILY 01/18/21 01/18/21 Unknown History tablet,extended release 24 hr sitagliptin phosphate 100 mg 100 mg PO DAILY 01/18/21 01/18/21 Unknown History tablet (Januvia) Allergies Allergy/AdvReac Type Severity Reaction Status Date / Time ciprofloxacin Allergy Unknown Unknown Verified 08/15/24 19:49 codeine Allergy Unknown Unknown Verified 08/15/24 19:49 heparin Allergy Unknown Rash Verified 08/15/24 19:49 lansoprazole Allergy Unknown Unknown Verified 08/15/24 19:49 metformin Allergy Unknown Unknown Verified 08/15/24 19:49 neomycin Allergy Unknown Unknown Verified 08/15/24 19:49 Penicillins Allergy Unknown rash Verified 08/15/24 19:49 Sulfa (Sulfonamide Allergy Unknown Unknown Verified 08/15/24 19:49 Antibiotics) enoxaparin Allergy Flushing Verified 08/15/24 19:49 metronidazole Allergy Unknown Verified 08/15/24 19:49 shellfish derived Allergy Unknown Verified 08/15/24 19:49 ANTIDEPRESSANTS Allergy Unknown Unknown Uncoded 08/15/24 19:49 Contrast Media Allergy Unknown Unknown Uncoded 08/15/24 19:49 ESOMEPRAZOLE MAG Allergy Unknown Unknown Uncoded 08/15/24 19:49 Review of Systems 2 Review of Systems: CONSTITUTIONAL: Denies fever ENT: Denies rhinorrhea, congestion, sore throat CARDIOVASCULAR: Reports palpitations RESPIRATORY: Denies cough or dyspnea. GASTROINTESTINAL: Denies abdominal pain, nausea, vomiting GENITOURINARY: Denies dysuria All systems reviewed & are unremarkable except as noted in HPI and below PMFSH Past Medical History Medical History History of hypothyroidism History of diabetes mellitus History of hypertension Family History Family History Other Diabetes mellitus Family history of cardiovascular disease Social History Social History Smoking status: Current every day smoker Alcohol intake: never Exam 2 Narrative: GENERAL: Well-appearing, well-nourished, and in no acute distress. HEAD: Normocephalic, atraumatic. EYES: EOMI. ENT: Nares clear, no rhinorrhea or epistaxis. Mucous membranes moist. Oropharynx without tonsillar hypertrophy exudate or other lesions. Bilateral TMs pearly huang non-bulging NECK: Supple. No adenopathy or masses. CHEST: Clear to auscultation. No respiratory distress. No wheezes rales or rhonchi HEART: Regular rate and rhythm. No murmur heard. Normal peripheral pulses. ABDOMEN: Soft, nontender, nondistended, normal active bowel sounds. EXTREMITIES: Normal range of motion. No edema. SKIN: Warm, dry, no rash. NEURO: No focal deficits. Alert and oriented x3. PSYCH: Normal mood and affect Course Course Emergency Course: Patient updated on her workup and agrees with plan of care Vital Signs Vital signs: Vital Signs Temperature 99.0 F 08/15/24 19:54 Pulse Rate 100 08/15/24 19:54 Respiratory Rate 16 08/15/24 19:54 Blood Pressure 154/65 H 08/15/24 19:54 Pulse Oximetry 95 08/15/24 19:54 Oxygen Delivery Room Air 08/15/24 19:54 Temperature 99.4 F 08/15/24 23:29 Pulse Rate 88 08/15/24 23:29 Respiratory Rate 17 08/15/24 23:29 Blood Pressure 126/65 08/15/24 23:29 Pulse Oximetry 97 08/15/24 23:29 Oxygen Delivery Room Air 08/15/24 19:54 MDM - Allergic Reaction MDM Narrative Medical decision making narrative: Patient presents to the emergency department for a possible reaction to her medication. Reports after administering her Trulicity injection today she started to feel like her heart was racing, felt chills, reports a fever at home. She is afebrile in the ER and nontoxic appearing. Her vitals are stable. CBC with mild leukocytosis to 10.8. Metabolic panel without concerning findings. Urine without evidence of infection. Influenza, RSV and COVID screens are negative. EKG shows normal sinus rhythm. Chest x-ray without infectious findings. Patient updated on her workup and agrees with plan of care. She is instructed to follow-up with her primary provider for further evaluation/management. She was given warnings to return to the ER Differential Diagnosis Differential diagnosis: Likely allergic reaction, adverse reaction to drug and other (Arrhythmia, palpitations, dehydration, infection) Lab Data Attestation: I reviewed the patient's lab results. 08/15/24 22:17 08/15/24 22:17 Labs: Lab Results 08/15/24 08/15/24 08/15/24 Range/Units 19:52 20:02 22:17 WBC 10.8 H (4.5-10.0) K/mm3 RBC 4.94 (4.2-5.4) M/mm3 Hgb 12.8 (12.0-15.0) g/dL Hct 40.1 (37.0-47.0) % MCV 81.2 (80-100) fl MCH 25.9 L (26-34) pg MCHC 31.9 L (32-36) g/dl RDW 14.5 (11.5-14.5) % Plt Count 237 (150-375) k/mm3 MPV 9.5 (7.4-10.4) fl Immature Gran % (Auto) 0.4 (0-0.5) % Neut % (Auto) 78.1 H (45.5-73.1) % Lymph % (Auto) 14.8 L (18.3-44.2) % [place] % (Auto) 5.3 (2.6-8.5) % Eos % (Auto) 0.7 (0-4.4) % Baso % (Auto) 0.7 (0.2-1.2) % Lymph # (Auto) 1.60 (0.9-3.2) K/mm3 [place] # (Auto) 0.6 (0.1-0.6) K/mm3 Eos # (Auto) 0.1 (0-0.3) K/mm3 Baso # (Auto) 0.1 (0.0-0.1) K/mm3 Abs Immat Gran (auto) 0.04 H (0.00-0.031) K/mm3 Absolute Neuts (auto) 8.4 H (1.3-6.7) K/mm3 Absolute Nucleated RBC 0.000 (0.0-0.012) K/mm3 Nucleated RBC % 0.0 (0.0-0.2) % Sodium 134 L (137-145) mmol/L Potassium 4.0 (3.4-5.0) mmol/L Chloride 97 L (98-107) mmol/L Carbon Dioxide 26 (22-30) mmol/L Anion Gap 11 (4-12) mmol/L BUN 14 (7-17) mg/dL Creatinine 0.67 L (0.7-1.0) mg/dL Estim Creat Clear Calc 81 ml/min Estimated GFR > 60 (59 - ) Glucose 176 H (65-110) mg/dL POC Capillary Glucose 197 H (65-105) mg/dl Calcium 8.8 (8.4-10.2) mg/dL Magnesium 1.6 (1.6-2.3) mg/dL Total Bilirubin 0.6 (0.2-1.3) mg/dL AST 26 (14-36) U/L ALT 25 (6-35) U/L Alkaline Phosphatase 69 (38-126) U/L Total Protein 8.0 (6.3-8.2) g/dL Albumin 4.3 (3.5-5.1) g/dL Urine Color (Yellow) Urine Appearance (Clear) Urine pH (5.0-9.0) Ur Specific [place] (1.001-1.035) Urine Protein (Negative) mg/dL Urine Glucose (UA) (Negative) mg/dL Urine Ketones (Negative) mg/dL Ur Blood (Man) (Negative) Urine Nitrate (Negative) Urine Bilirubin (Negative) Urine Urobilinogen (<2.0) mg/dL Leukocyte Esterase Rfl (Negative) ANGELINA/UL Influenza A (RT-PCR) Negative (Negative) Influenza B (RT-PCR) Negative (Negative) RSV (RT-PCR) Negative (Negative) SARS-CoV-2 RNA (RT-PCR) Negative (Negative) 08/15/24 Range/Units 22:30 WBC (4.5-10.0) K/mm3 RBC (4.2-5.4) M/mm3 Hgb (12.0-15.0) g/dL Hct (37.0-47.0) % MCV (80-100) fl MCH (26-34) pg MCHC (32-36) g/dl RDW (11.5-14.5) % Plt Count (150-375) k/mm3 MPV (7.4-10.4) fl Immature Gran % (Auto) (0-0.5) % Neut % (Auto) (45.5-73.1) % Lymph % (Auto) (18.3-44.2) % [place] % (Auto) (2.6-8.5) % Eos % (Auto) (0-4.4) % Baso % (Auto) (0.2-1.2) % Lymph # (Auto) (0.9-3.2) K/mm3 [place] # (Auto) (0.1-0.6) K/mm3 Eos # (Auto) (0-0.3) K/mm3 Baso # (Auto) (0.0-0.1) K/mm3 Abs Immat Gran (auto) (0.00-0.031) K/mm3 Absolute Neuts (auto) (1.3-6.7) K/mm3 Absolute Nucleated RBC (0.0-0.012) K/mm3 Nucleated RBC % (0.0-0.2) % Sodium (137-145) mmol/L Potassium (3.4-5.0) mmol/L Chloride (98-107) mmol/L Carbon Dioxide (22-30) mmol/L Anion Gap (4-12) mmol/L BUN (7-17) mg/dL Creatinine (0.7-1.0) mg/dL Estim Creat Clear Calc ml/min Estimated GFR (59 - ) Glucose (65-110) mg/dL POC Capillary Glucose (65-105) mg/dl Calcium (8.4-10.2) mg/dL Magnesium (1.6-2.3) mg/dL Total Bilirubin (0.2-1.3) mg/dL AST (14-36) U/L ALT (6-35) U/L Alkaline Phosphatase (38-126) U/L Total Protein (6.3-8.2) g/dL Albumin (3.5-5.1) g/dL Urine Color Yellow (Yellow) Urine Appearance Clear (Clear) Urine pH 7.5 (5.0-9.0) Ur Specific [place] 1.018 (1.001-1.035) Urine Protein Negative (Negative) mg/dL Urine Glucose (UA) Negative (Negative) mg/dL Urine Ketones Negative (Negative) mg/dL Ur Blood (Man) Negative (Negative) Urine Nitrate Negative (Negative) Urine Bilirubin Negative (Negative) Urine Urobilinogen 0.2 (<2.0) mg/dL Leukocyte Esterase Rfl Negative (Negative) ANGELINA/UL Influenza A (RT-PCR) (Negative) Influenza B (RT-PCR) (Negative) RSV (RT-PCR) (Negative) SARS-CoV-2 RNA (RT-PCR) (Negative) Imaging Data Radiologist's impression: ITS Impressions Chest X-Ray 08/15/24 20:27 IMPRESSION: Pulmonary vascular congestion, otherwise no acute cardiopulmonary process. ECG Data EKG #1: ECG completion date: 08/16/24 normal rate, sinus rhythm, no ST changes, normal QT and no acute changes (compared to EKG 06/2024) Critical Care Time Critical Care Time Critical Care Time: No Discharge Plan Discharge Clinical Impression: Palpitations Medication reaction Qualifiers: Encounter type: initial encounter Qualified Code(s): T50.905A - Adverse effect of unspecified drugs, medicaments and biological substances, initial encounter Patient Disposition: Home Condition: Improved Instructions: Dulaglutide (By injection), Heart Palpitations (ED) Additional Instructions: Return to the emergency department if you experience fever, chest pain, shortness of breath, abdominal pain with nausea and vomiting, weakness, numbness, or any other symptoms that are concerning to you. Follow up with your primary care doctor Patient Language: Georgian Prescriptions: No Action amlodipine 5 mg tablet 5 mg PO DAILY glimepiride 2 mg tablet 2 mg PO DAILY levothyroxine 150 mcg tablet 175 mcg PO DAILY metoprolol succinate 25 mg tablet extended release 24 hr 25 mg PO DAILY lorazepam 1 mg tablet 1 mg PO QID Januvia 100 mg tablet 100 mg PO DAILY phenazopyridine [Pyridium] 200 mg tablet 200 mg PO TID PRN (Reason: pain) Qty: 6 0RF nitrofurantoin monohyd/m-cryst [Macrobid] 100 mg capsule 100 mg PO Q12H 5 Days Qty: 10 0RF Rx Instructions: must administer with a meal/food cetirizine [Zyrtec] 10 mg tablet 10 mg PO DAILY Qty: 30 0RF azithromycin 250 mg tablet 250 mg PO DAILY 4 Days Qty: 4 0RF Rx Instructions: start on day 2 of therapy triamcinolone acetonide 0.1 % ointment 1 applic topical BID Qty: 30 0RF albuterol sulfate [Ventolin HFA] 90 mcg/actuation HFA aerosol inhaler 1 inh inhalation Q4-6H PRN (Reason: shortness of breath or wheezing) Qty: 8.5 0RF prednisone 50 mg tablet 50 mg PO DAILY Qty: 5 0RF Follow-up/Referrals: Hermila,Lobito Banegas MD [Primary Care Provider] -
[2024-08-15 22:23] LABS: Basophils Absolute Auto 0.1 K/mm3 (0.0-0.1); Basophils Percent Auto 0.7 % (0.2-1.2); Eosinophils Absolute Auto 0.1 K/mm3 (0-0.3); Eosinophils Percent Auto 0.7 % (0-4.4); Hematocrit 40.1 % (37.0-47.0); Hemoglobin 12.8 g/dL (12.0-15.0); Immature Granulocyte Absolute 0.04 K/mm3 (0.00-0.031); Immature Granulocyte Percent A 0.4 % (0-0.5); Lymphocytes Percent Auto 14.8 % (18.3-44.2); Mean Corpuscular HGB Conc 31.9 g/dl (32-36); Mean Corpuscular Hemoglobin 25.9 pg (26-34); Mean Corpuscular Volume 81.2 fl (80-100); Mean Platelet Volume 9.5 fl (7.4-10.4); Monocytes Absolute Auto 0.6 K/mm3 (0.1-0.6); Monocytes Percent Auto 5.3 % (2.6-8.5); Neutrophils Absolute Auto 8.4 K/mm3 (1.3-6.7); Neutrophils Percent Auto 78.1 % (45.5-73.1); Platelet Count Result 237 k/mm3 (150-375); Red Blood Count 4.94 M/mm3 (4.2-5.4); Red Cell Distribution Width 14.5 % (11.5-14.5); White Blood Count 10.8 K/mm3 (4.5-10.0)
[2024-08-15 22:35] LABS: Alanine Aminotransferase 25 U/L (6-35); Albumin Level 4.3 g/dL (3.5-5.1); Alkaline Phosphatase 69 U/L (38-126); Anion Gap 11 mmol/L (4-12); Aspartate Amino Transferase 26 U/L (14-36); Bilirubin,Total 0.6 mg/dL (0.2-1.3); Blood Urea Nitrogen 14 mg/dL (7-17); Calcium 8.8 mg/dL (8.4-10.2); Carbon Dioxide 26 mmol/L (22-30); Chloride 97 mmol/L (98-107); Estimated CRCL calculation 81 ml/min; Estimated Glomerular Filt Rate > 60; Glucose 176 mg/dL (65-110); Sodium 134 mmol/L (137-145)
[2024-08-15 22:36] LABS: Magnesium 1.6 mg/dL (1.6-2.3)
[2024-08-15 22:37] LABS: Add Urine Microscopic? NO; Appearance Urine Clear (Clear); Bilirubin Urine Negative (Negative); Blood Urine Negative (Negative); Color Urine Yellow (Yellow); Glucose Urine UA Negative (Negative); Ketones Urine Negative (Negative); Leukocyte Esterase Ur Negative LEU/UL (Negative); Nitrate Urine Negative (Negative); Protein Urine Negative (Negative); Specific Grav Ur 1.018 (1.001-1.035); Urobilinogen Urine 0.2 mg/dL (<2.0); pH Urine 7.5 (5.0-9.0)
[2024-08-15 23:29] VITALS: BP 126/65; PULSE 88; RESP 17; TEMP 37.4; O2SAT 97
== END 2024-08-16 00:18 | disposition home or self-care (01) ==
PROVIDERS: Emergency Medicine; Emergency Provider Physician Assistant; PCP Internal Medicine
DX: R00.2 Palpitations (principal); T50.995A Adverse effect of other drugs, medicaments and biological substances, initial encounter; Z20.822 Contact with and (suspected) exposure to COVID-19; I10 Essential (primary) hypertension; E03.9 Hypothyroidism, unspecified; E11.9 Type 2 diabetes mellitus without complications; F17.200 Nicotine dependence, unspecified, uncomplicated; R09.89 Other specified symptoms and signs involving the circulatory and respiratory systems; Z79.84 Long term (current) use of oral hypoglycemic drugs; Z79.899 Other long term (current) drug therapy; Z79.85 Long-term (current) use of injectable non-insulin antidiabetic drugs; R94.31 Abnormal electrocardiogram [ECG] [EKG]
CPT/HCPCS: 36415; 71046; 80053; 81003; 82948; 83735; 85025; 87637; 93005; 99283

== ENCOUNTER 2025-03-31 05:14 | Emergency (ER) | payer MEDICARE, OTHER, SELFPAY ==
[2025-03-31 05:22] VITALS: BP 126/62; PULSE 63; RESP 18; TEMP 36.4; O2SAT 99
[2025-03-31] MEDS: LIDOCAINE 5% PATCH 1 PATCH TRANSDERM (05:40)
--- NOTE | 2025-03-31 05:44 | ED.EXTPRO ---
HPI - Extremity Problem General Chief complaint: Extremity Problem,Nontraumatic Stated complaint: leg pain Time Seen by Provider: 03/31/25 05:23 History of Present Illness HPI Narrative: 74-year-old female presenting with right calf pain for 4-5 days. No leg asymmetry. History of arthritis in her left leg. Takes arthritis medications but had no relief of her pain in her right leg. Patient is concerned about a blood clot and wants to get this checked out. No history of DVT or PE. Not any anticoagulation or aspirin. No recent surgical procedures or immobilization. No hospitalizations recently. Patient denies any injuries. She is ambulatory with a steady gait without any ataxia. Denies any other systemic symptoms or complaints at this time. Related Data Home Medications ?Medication ?Instructions ?Recorded ?Confirmed ?Last Taken ?Type amlodipine 5 mg tablet 5 mg PO DAILY 01/18/21 01/18/21 Unknown History glimepiride 2 mg tablet 2 mg PO DAILY 01/18/21 01/18/21 Unknown History levothyroxine 150 mcg tablet 175 mcg PO DAILY 01/18/21 01/18/21 Unknown History lorazepam 1 mg tablet 1 mg PO QID 01/18/21 01/18/21 Unknown History metoprolol succinate 25 mg 25 mg PO DAILY 01/18/21 01/18/21 Unknown History tablet,extended release 24 hr sitagliptin phosphate 100 mg 100 mg PO DAILY 01/18/21 01/18/21 Unknown History tablet (Januvia) Allergies Allergy/AdvReac Type Severity Reaction Status Date / Time ciprofloxacin Allergy Unknown Unknown Verified 08/15/24 19:49 codeine Allergy Unknown Unknown Verified 08/15/24 19:49 heparin Allergy Unknown Rash Verified 08/15/24 19:49 lansoprazole Allergy Unknown Unknown Verified 08/15/24 19:49 metformin Allergy Unknown Unknown Verified 08/15/24 19:49 neomycin Allergy Unknown Unknown Verified 08/15/24 19:49 Penicillins Allergy Unknown rash Verified 08/15/24 19:49 Sulfa (Sulfonamide Allergy Unknown Unknown Verified 08/15/24 19:49 Antibiotics) enoxaparin Allergy Flushing Verified 08/15/24 19:49 metronidazole Allergy Unknown Verified 08/15/24 19:49 shellfish derived Allergy Unknown Verified 08/15/24 19:49 ANTIDEPRESSANTS Allergy Unknown Unknown Uncoded 08/15/24 19:49 Contrast Media Allergy Unknown Unknown Uncoded 08/15/24 19:49 ESOMEPRAZOLE MAG Allergy Unknown Unknown Uncoded 08/15/24 19:49 Review of Systems Review of Systems: As reviewed above in HPI All systems reviewed & are unremarkable except as noted in HPI and below PMFSH Past Medical History Medical History History of hypothyroidism History of diabetes mellitus History of hypertension Family History Family History Other Diabetes mellitus Family history of cardiovascular disease Social History Social History Smoking status: Current every day smoker Alcohol intake: never Exam Narrative: GENERAL: [Well-appearing, well-nourished, and in no acute distress.] HEAD: [Normocephalic, atraumatic.] EYES: [PERRLA and EOMI.] ENT: Nares clear, no rhinorrhea or epistaxis. Mucous membranes moist. NECK: Supple. CHEST: [Clear to auscultation. No respiratory distress.] HEART: [Regular rate and rhythm]. No murmur heard. [Normal peripheral pulses.] ABDOMEN: [Soft, nondistended], [nontender], [No rigidity or guarding] EXTREMITIES: Normal range of motion. No extremity edema. Full range of motion of the ankles bilaterally. No calf asymmetry. No tenderness to palpation of the posterior calf. No popliteal masses or lesions identified. No overlying skin discoloration, bruising or erythema. 2+ dorsalis pedis pulse with warm extremity and good cap refill of each digit. SKIN: Warm, dry, no rash. NEURO: [No focal deficits]. Alert and oriented [x3.] PSYCH: [Normal mood and affect.] Course Vital Signs Vital signs: Vital Signs Temperature 36.4 C 03/31/25 05:22 Pulse Rate 63 03/31/25 05:22 Respiratory Rate 18 03/31/25 05:22 Blood Pressure 126/62 03/31/25 05:22 Pulse Oximetry 99 03/31/25 05:22 Oxygen Delivery Room Air 03/31/25 05:22 Temperature 36.4 C 03/31/25 05:22 Pulse Rate 65 03/31/25 06:33 Respiratory Rate 18 03/31/25 06:33 Blood Pressure 126/88 03/31/25 06:33 Pulse Oximetry 99 03/31/25 06:33 Oxygen Delivery Room Air 03/31/25 05:22 MDM - Extremity (Nontraumatic) MDM Narrative Medical decision making narrative: 74-year-old female presenting with right calf pain for 4-5 days. No leg asymmetry. History of arthritis in her left leg. Takes arthritis medications but had no relief of her pain in her right leg. Patient is concerned about a blood clot and wants to get this checked out. No history of DVT or PE. Not any anticoagulation or aspirin. No recent surgical procedures or immobilization. No hospitalizations recently. Patient denies any injuries. She is ambulatory with a steady gait without any ataxia. Denies any other systemic symptoms or complaints at this time. No extremity edema. Full range of motion of the ankles bilaterally. No calf asymmetry. No tenderness to palpation of the posterior calf. No popliteal masses or lesions identified. No overlying skin discoloration, bruising or erythema. 2+ dorsalis pedis pulse with warm extremity and good cap refill of each digit. No clinical evidence of a DVT and no historical elements of DVT risk factors. She is hemodynamically stable. Normal vital signs. I did inform her after calling Radiology that we do not have ultrasonography capabilities except call backs for emergencies over the holiday but she would like to undergo some lab work including a dimer to assess if he has an elevations she would require outpatient ultrasound. Given a lidocaine patch to her calf for analgesia. Labs unremarkable negative dimer. Safe for discharge with PCP follow-up instructions. Lab Data 03/31/25 05:44 03/31/25 05:44 Labs: Lab Results 03/31/25 Range/Units 05:44 WBC 8.2 (4.5-10.0) K/mm3 RBC 5.05 (4.2-5.4) M/mm3 Hgb 13.0 (12.0-15.0) g/dL Hct 40.4 (37.0-47.0) % MCV 80.0 (80-100) fl MCH 25.7 L (26-34) pg MCHC 32.2 (32-36) g/dl RDW 14.5 (11.5-14.5) % Plt Count 263 (150-375) k/mm3 MPV 9.3 (7.4-10.4) fl Immature Gran % (Auto) 0.5 (0-0.5) % Neut % (Auto) 71.2 (45.5-73.1) % Lymph % (Auto) 18.8 (18.3-44.2) % [place] % (Auto) 6.3 (2.6-8.5) % Eos % (Auto) 2.1 (0-4.4) % Baso % (Auto) 1.1 (0.2-1.2) % Lymph # (Auto) 1.53 (0.9-3.2) K/mm3 [place] # (Auto) 0.5 (0.1-0.6) K/mm3 Eos # (Auto) 0.2 (0-0.3) K/mm3 Baso # (Auto) 0.1 (0.0-0.1) K/mm3 Abs Immat Gran (auto) 0.04 H (0.00-0.031) K/mm3 Absolute Neuts (auto) 5.8 (1.3-6.7) K/mm3 Absolute Nucleated RBC 0.000 (0.0-0.012) K/mm3 Nucleated RBC % 0.0 (0.0-0.2) % D-Dimer 0.46 (<0.48) ug/mL Sodium 134 L (137-145) mmol/L Potassium 4.1 (3.4-5.0) mmol/L Chloride 101 (98-107) mmol/L Carbon Dioxide 28 (22-30) mmol/L Anion Gap 5 (4-12) mmol/L BUN 10 (7-17) mg/dL Creatinine 0.69 L (0.7-1.0) mg/dL Estim Creat Clear Calc 82 ml/min Estimated GFR > 60 (59 - ) Glucose 189 H (65-110) mg/dL Calcium 9.1 (8.4-10.2) mg/dL Discharge Plan Discharge Clinical Impression: Pain of right calf Patient Disposition: Home Condition: Stable Instructions: Antibiotic Form Additional Instructions: Laboratory studies show negative D-dimer which is a sensitive marker of blood clot making it exceedingly unlikely that you have one. No signs of infection and otherwise labs do not point towards anything acute. Would recommend Tylenol/ibuprofen alternating over 6-8 hours for pain control and topical analgesia with lidocaine. Follow-up with regular primary care provider. If concern persists an ultrasound on outpatient basis for further evaluation would be beneficial. Return with any emergent concerns at any time. Patient Language: Telugu Prescriptions: No Action amlodipine 5 mg tablet 5 mg PO DAILY glimepiride 2 mg tablet 2 mg PO DAILY levothyroxine 150 mcg tablet 175 mcg PO DAILY metoprolol succinate 25 mg tablet extended release 24 hr 25 mg PO DAILY lorazepam 1 mg tablet 1 mg PO QID Januvia 100 mg tablet 100 mg PO DAILY phenazopyridine [Pyridium] 200 mg tablet 200 mg PO TID PRN (Reason: pain) Qty: 6 0RF nitrofurantoin monohyd/m-cryst [Macrobid] 100 mg capsule 100 mg PO Q12H 5 Days Qty: 10 0RF Rx Instructions: must administer with a meal/food cetirizine [Zyrtec] 10 mg tablet 10 mg PO DAILY Qty: 30 0RF azithromycin 250 mg tablet 250 mg PO DAILY 4 Days Qty: 4 0RF Rx Instructions: start on day 2 of therapy triamcinolone acetonide 0.1 % ointment 1 applic topical BID Qty: 30 0RF albuterol sulfate [Ventolin HFA] 90 mcg/actuation HFA aerosol inhaler 1 inh inhalation Q4-6H PRN (Reason: shortness of breath or wheezing) Qty: 8.5 0RF prednisone 50 mg tablet 50 mg PO DAILY Qty: 5 0RF Follow-up/Referrals: Hermila,Lobito Banegas MD [Primary Care Provider, Unknown] Time of Disposition: 06:52
[2025-03-31 05:52] LABS: Hematocrit 40.4 % (37.0-47.0); Hemoglobin 13.0 g/dL (12.0-15.0); Immature Granulocyte Percent A 0.5 % (0-0.5); Lymphocytes Absolute Auto 1.53 K/mm3 (0.9-3.2); Mean Corpuscular HGB Conc 32.2 g/dl (32-36); Mean Corpuscular Hemoglobin 25.7 pg (26-34); Mean Corpuscular Volume 80.0 fl (80-100); Nucleated Red Blood Cells Absolute Auto 0.000 K/mm3 (0.0-0.012); Nucleated Red Blood Cells Perc 0.0 % (0.0-0.2); Platelet Count Result 263 k/mm3 (150-375); Red Blood Count 5.05 M/mm3 (4.2-5.4); White Blood Count 8.2 K/mm3 (4.5-10.0)
[2025-03-31 06:10] LABS: Anion Gap 5 mmol/L (4-12); Blood Urea Nitrogen 10 mg/dL (7-17); Calcium 9.1 mg/dL (8.4-10.2); Carbon Dioxide 28 mmol/L (22-30); Chloride 101 mmol/L (98-107); Estimated CRCL calculation 82 ml/min; Estimated Glomerular Filt Rate > 60; Glucose 189 mg/dL (65-110); Potassium 4.1 mmol/L (3.4-5.0); Sodium 134 mmol/L (137-145)
[2025-03-31 06:33] VITALS: BP 126/88; PULSE 65; RESP 18; O2SAT 99
[2025-03-31 07:00] VITALS: BP 122/65; PULSE 73; RESP 18; O2SAT 98
== END 2025-03-31 07:01 | disposition home or self-care (01) ==
PROVIDERS: Emergency Provider Student in an Organized Health Care Education/Training Program; PCP Internal Medicine
DX: M79.661 Pain in right lower leg (principal); I10 Essential (primary) hypertension; E03.9 Hypothyroidism, unspecified; E11.9 Type 2 diabetes mellitus without complications; F17.200 Nicotine dependence, unspecified, uncomplicated; Z79.84 Long term (current) use of oral hypoglycemic drugs; Z79.899 Other long term (current) drug therapy
CPT/HCPCS: 36415; 80048; 85025; 85380; 99283; A9270